=== PATIENT | male | born 1990 | race Two or more races ===

== ENCOUNTER 2018-12-01 14:56 | Inpatient (IN) | payer OTHER ==
[~2018-12-01] VITALS: Ht 175.3 cm; Wt 107.5 kg
--- NOTE | 2018-12-01 18:50 | NUR ---
Admitted from [facility] accompanied by ambulance staff per samy for Craniopharyngioma, s/p Resection of Neoplasm. Not in any form of distress. No complaints of pain. Alert x3. Oriented to unit and equipment. Informed Dr Godfrey of admission. Will endorse accordingly.
[2018-12-01] MEDS ORDERED: Z GUARD REMEDY PASTE 57 GM TUBE TOP PRN (19:15)
[2018-12-01] MEDS ORDERED: MAGNESIUM HYDROXIDE 30 ML LIQUID UDC PO PRN (19:15)
[2018-12-01 19:18] VITALS: BP 103/65
[2018-12-01] MEDS ORDERED: NA P133E RC (20:38)
[2018-12-01] MEDS ORDERED: ASPI81TA44 PO (20:38)
[2018-12-01] MEDS ORDERED: ACET-2154 PO (20:38)
[2018-12-01] MEDS ORDERED: IBUP-1955 PO (20:38)
[2018-12-01] MEDS ORDERED: POLY17PO4 PO (20:38)
[2018-12-01] MEDS ORDERED: BISA10SU61 RC (20:38)
[2018-12-01] MEDS ORDERED: TRIM300C14 PO (20:38)
[2018-12-01] MEDS ORDERED: HEPA500034 SQ (20:38)
[2018-12-01] MEDS ORDERED: LACO100T2 PO (20:38)
[2018-12-01] MEDS ORDERED: ONDA4TAB10 PO (20:38)
[2018-12-01] MEDS ORDERED: RISP1TAB27 PO (20:38)
[2018-12-01] MEDS ORDERED: DOCU100C36 PO (20:38)
[2018-12-01] MEDS ORDERED: OLAN5TAB3 PO (20:38)
[2018-12-01] MEDS ORDERED: BISA-79 PO (20:38)
[2018-12-01] MEDS ORDERED: LEVO200T9 PO (20:38)
[2018-12-01] MEDS ORDERED: DESM0.2T23 PO (20:38)
[2018-12-01 21:00] VITALS: BP 99/61
--- NOTE | 2018-12-01 21:45 | NUR ---
Admitting the 28 y/o male from [facility] under the care of [facility]. Arrived in unit at 1845. Received patient in bed, AAO x 3. On room air. No acute distress or SOB noted. Verbally responsive and able to make needs known. Put Medications on the system and Contacted [facility] on-call for medication reconciliation. Gideon SUPERVISOR FRAME SAMPLE AND PATTERN verbalized of completing. VSS. Routine admission care done. Pictures taken and placed in chart. Belongings list completed. MRSA swab done by AM nurse, swab sent to lab. All safety measures and fall precautions maintained. Call light and all personal belongings within reach. Continue to monitor.
[2018-12-01] MEDS ORDERED: BISACODYL 10 MG SUPP.RECT RC PRN (22:45)
[2018-12-01] MEDS ORDERED: FLEET ENEMA 133 ML BOTTLE RC PRN (22:45)
[2018-12-01] MEDS ORDERED: BISACODYL 5 MG TABLET.DR PO PRN (22:45)
[2018-12-01] MEDS ORDERED: IBUPROFEN 600 MG TABLET PO PRN (22:45)
[2018-12-01] MEDS ORDERED: MIRALAX 17 GM POWD.PACK PO PRN (22:45)
[2018-12-01] MEDS ORDERED: ACETAMINOPHEN 325 MG TABLET PO PRN (22:45)
[2018-12-01] MEDS ORDERED: ONDANSETRON HCL 4 MG TABLET PO PRN (22:45)
[2018-12-01] MEDS ORDERED: OLANZAPINE 5 MG TABLET PO PRN (22:45)
[2018-12-02 06:26] VITALS: BP 101/72
[2018-12-02 07:15] VITALS: BP 107/64
[2018-12-02] MEDS ORDERED: OLANZAPINE ZYDIS 5 MG TAB.RAPDIS PO PRN (07:45)
[2018-12-02] MEDS: LEVOTHYROXINE SODIUM 200 MCG TABLET PO SCH (08:33)
[2018-12-02] MEDS: DOCUSATE SODIUM 100 MG CAPSULE PO SCH ×2 (08:33→16:31)
[2018-12-02] MEDS: ASPIRIN EC 81 MG TABLET.DR PO SCH (08:33)
[2018-12-02] MEDS ORDERED: DESMOPRESSIN ACETATE 0.1 MG PO SCH (09:00)
[2018-12-02] MEDS ORDERED: Medication Not On Formulary EA (Lacosamide (Vimpat) 100 MG) PO SCH (09:00)
[2018-12-02] MEDS ORDERED: DESM0.1T4 PO (09:32)
[2018-12-02] MEDS: DESMOPRESSIN 0.1 MG TABLET PO SCH ×2 (12:13→20:18)
[2018-12-02] MEDS: LACOSAMIDE 50 MG TABLET PO SCH ×2 (12:14→20:18)
[2018-12-02 16:09] VITALS: BP 108/76
[2018-12-02] MEDS: risperiDONE 1 MG TABLET PO SCH (20:18)
[2018-12-02 21:09] VITALS: BP 114/78
--- NOTE | 2018-12-02 21:15 | NUR ---
Received pt resting in bed. AAO x3. Family at bedside. No acute distress noted. C/o headache, Motrin given. Assessed after 1 hour, pt stated that the pain is gone. Pt's heart rate is elevated from [address] Jackson regarding heart rate, ordered STAT EKG. Safety measures maintained. Call light and personal belongings within reach. Will continue to monitor.
--- NOTE | 2018-12-02 21:37 | NUR ---
Notified Dr. Jackson that result is out. aware and will put in order. Will continue to monitor.
[2018-12-03] VITALS (7 sets, daily range): BP systolic 104–137; BP diastolic 59–88
[2018-12-03] MEDS: LEVOTHYROXINE SODIUM 200 MCG TABLET PO SCH (06:31)
[2018-12-03 07:15] LABS: BASOPHILS # (AUTO) 0.1 K/uL (0.0-8.0); BASOPHILS % (AUTO) 0.8 % (0.0-2.0); EOSINOPHILS # (AUTO) 0.3 K/uL (0.0-0.7); EOSINOPHILS % (AUTO) 3.2 % (0.0-7.0); HEMOGLOBIN 14.2 g/dL (12.5-16.3); LYMPHOCYTES # (AUTO) 3.4 K/uL (20.0-40.0); LYMPHOCYTES % (AUTO) 34.5 % (20.5-51.5); MEAN CORPUSCULAR HEMOGLOBIN 30.9 uug (23.8-33.4); MEAN CORPUSCULAR HGB CONC 34 g/dL (32.5-36.3); MONOCYTES # (AUTO) 0.8 K/uL (2.0-10.0); MONOCYTES % (AUTO) 7.5 % (0.0-11.0); NEUTROPHILS # (AUTO) 5.4 K/uL (1.8-8.9); PLATELET COUNT (AUTO) 349 K/uL (152-348); RED BLOOD CELL COUNT(AUTO) 4.62 MIL/uL (4.06-5.63)
[2018-12-03 07:55] LABS: ALANINE AMINOTRANSFERASE 135 U/L (16-63); ALKALINE PHOSPHATASE 140 U/L (50-136); ASPARTATE AMINOTRANSFERASE 96 U/L (15-37); BILIRUBIN,TOTAL 0.3 mg/dL (0.2-1.0); CARBON DIOXIDE 25 mmol/L (21-32); CHLORIDE 118 mmol/L (98-107); CHOLESTEROL 238 mg/dL (<200); CREATININE 1.4 mg/dL (0.6-1.3); GLUCOSE 111 mg/dL (74-106); HDL CHOLESTEROL 37 mg/dL (40-60); MAGNESIUM 2.6 mg/dL (1.8-2.4); PHOSPHOROUS 4.8 mg/dL (2.5-4.9); POTASSIUM 4.2 mmol/L (3.5-5.1); TOTAL PROTEIN, SERUM 9.3 g/dL (6.4-8.2); TRIGLYCERIDES 766 MG/DL (30-150); UREA NITROGEN, BLOOD 21 mg/dL (7-18)
--- NOTE | 2018-12-03 08:12 | NUR ---
SPOKE WITH REGARDING NA OF 158. NO NEW ORDERS GIVEN
[2018-12-03] MEDS: DESMOPRESSIN 0.1 MG TABLET PO SCH ×2 (08:36→20:08)
[2018-12-03] MEDS: DOCUSATE SODIUM 100 MG CAPSULE PO SCH ×2 (08:37→18:22)
[2018-12-03] MEDS: LACOSAMIDE 50 MG TABLET PO SCH ×2 (08:38→20:08)
[2018-12-03] MEDS: ASPIRIN EC 81 MG TABLET.DR PO SCH (08:38)
[2018-12-03 08:44] LABS: THYROID STIMULATING HORMONE < 0.007 mIU/mL (0.358-3.740)
[2018-12-03] MEDS ORDERED: IV NS 1000 ML 1,000 ML IV PRN (09:45)
--- NOTE | 2018-12-03 11:34 | NUR ---
DIET CHANGED TO LOW SODIUM PER MD ORDER. D/T ELEVATED Na. IN BED RESTING QUIETLY. HR 145. SHOWER GIVEN BY OT JD WELL. DRSG TO ABDOMEN CHANGED INCISION SITE INTACT WITH STERISTRIPS
--- NOTE | 2018-12-03 16:13 | NUR ---
CALLED MD AGAIN REGARDING HEART RATE 140-150. FOR MOST OF DAY IN BED RESTING NOW CAR RIDER TOOK VS STATES HIS SAT WAS 82% ON ROOM AIR. HE HAS BEEN SATING FINE MOST OF DAY. APPLIED 2L O2 NOW SATING 99-100% HEART RATE TACHY AT 140. LEFT MSG WITH EXCHANGE FOR MD TO CALL ME BACK FOR ORDERS OR TO COME IN TO SEE HIM. IN NO ACUTE DISTRESS AT THIS TIME NO SOB, OR LIGHTHEADEDNESS OR DIZZINESS SKIN DRY NO DIAPHORESIS NOTED
[2018-12-03] MEDS: IV 1/2NS 1000 ML 1,000 ML IV PRN (18:29)
--- NOTE | 2018-12-03 18:33 | NUR ---
IV STARTED TO RIGHT HAND #22G X1 STICK. JD WELL . IV FL 1/2 NS @ 125CC/HR.X 1 BAG. ORDERED FOR DEHYDRATION. CBC TO BE DRAWN AFTER BAG IS INFUSED
--- NOTE | 2018-12-03 19:22 | NUR ---
IV FLUIDS INFUSING AT 80ML/HR
[2018-12-03] MEDS: risperiDONE 1 MG TABLET PO SCH (20:08)
--- NOTE | 2018-12-03 20:50 | NUR ---
Pt sleeping in bed. Aroused easily to name. AAO x3-4. Family at bedside. No acute distress noted. 98% on room air. Denies pain or discomfort. Assisted to the bathroom x2. Heart rate continues to be elevated. Dr. Jackson aware and seen pt. IV site on right hand gauge 22, 1/2 NS infusing at 80 mL/hr. All due meds given as ordered. Safety measures maintained. Call light and personal belongings within reach. Will continue to monitor.
[2018-12-04 05:55] VITALS: BP 118/70
[2018-12-04] MEDS: IV 1/2NS 1000 ML 1,000 ML IV PRN (06:16)
[2018-12-04] MEDS ORDERED: LEVOTHYROXINE SODIUM 150 MCG TABLET PO SCH (07:00)
[2018-12-04 07:24] LABS: BASOPHILS # (AUTO) 0.1 K/uL (0.0-8.0); BASOPHILS % (AUTO) 0.5 % (0.0-2.0); EOSINOPHILS # (AUTO) 0.5 K/uL (0.0-0.7); EOSINOPHILS % (AUTO) 4.3 % (0.0-7.0); HEMATOCRIT 41.5 % (36.7-47.1); HEMOGLOBIN 13.6 g/dL (12.5-16.3); LYMPHOCYTES # (AUTO) 4.1 K/uL (20.0-40.0); MEAN CORPUSCULAR HEMOGLOBIN 29.9 uug (23.8-33.4); MEAN CORPUSCULAR HGB CONC 33 g/dL (32.5-36.3); MEAN CORPUSCULAR VOLUME 91.2 fL (73.0-96.2); MONOCYTES % (AUTO) 9.2 % (0.0-11.0); NEUTROPHILS # (AUTO) 5.4 K/uL (1.8-8.9); PLATELET COUNT (AUTO) 332 K/uL (152-348); RED BLOOD CELL COUNT(AUTO) 4.55 MIL/uL (4.06-5.63); WHITE BLOOD COUNT (AUTO) 11.1 K/uL (3.6-10.2)
[2018-12-04 07:38] LABS: ALANINE AMINOTRANSFERASE 181 U/L (16-63); ALKALINE PHOSPHATASE 147 U/L (50-136); ASPARTATE AMINOTRANSFERASE 74 U/L (15-37); BILIRUBIN,TOTAL 0.4 mg/dL (0.2-1.0); CARBON DIOXIDE 15 mmol/L (21-32); CHLORIDE 124 mmol/L (98-107); CREATININE 1.3 mg/dL (0.6-1.3); GLUCOSE 124 mg/dL (74-106); MAGNESIUM 2.4 mg/dL (1.8-2.4); PHOSPHOROUS 4.2 mg/dL (2.5-4.9); POTASSIUM 3.7 mmol/L (3.5-5.1); TOTAL PROTEIN, SERUM 8.8 g/dL (6.4-8.2); UREA NITROGEN, BLOOD 28 mg/dL (7-18)
--- NOTE | 2018-12-04 08:00 | NUR ---
Received patient, resting in bed, awakex3. With some lethargy but responds well to commands and wakes up with voice. Not in any form of distress. No pain noted. With some dysarthria/ delayed response noted. No chest pains or headache noted.
[2018-12-04] MEDS: ASPIRIN EC 81 MG TABLET.DR PO SCH (08:23)
[2018-12-04] MEDS: DOCUSATE SODIUM 100 MG CAPSULE PO SCH (08:23)
[2018-12-04] MEDS: LACOSAMIDE 50 MG TABLET PO SCH (08:23)
[2018-12-04] MEDS: DESMOPRESSIN 0.1 MG TABLET PO SCH (08:23)
[2018-12-04 08:25] VITALS: BP 110/75
[2018-12-04 08:49] LABS: THYROID STIMULATING HORMONE < 0.007 mIU/mL (0.358-3.740)
--- NOTE | 2018-12-04 08:50 | NUR ---
Critical Na level of 162. HR of 137. No other S/S present. Dr Jackson informed and ordered D5W at 70 cc/hr and transfer to Telemetry for Tachycardia and hypernatremia.
[2018-12-04] MEDS ORDERED: IV D5W 1000ML 1,000 ML IV PRN (09:30)
--- NOTE | 2018-12-04 09:45 | NUR ---
Dr Godfrey informed of transfer. Informed family of transfer.
--- NOTE | 2018-12-04 11:55 | NUR ---
Report given to Norlina/ RN. Patient stable, no complaints of chest pains or SOB. No head ache noted. Transferred to [facility], telemetry per wheelchair.
[2018-12-04] MEDS ORDERED: ASPI-605 PO (13:25)
[2018-12-04] MEDS ORDERED: DESM0.2T23 PO (13:28)
[2018-12-04] MEDS ORDERED: LEVO150T PO (13:31)
[2018-12-04] MEDS ORDERED: Z-GUARD TOP (13:36)
[2018-12-04] MEDS ORDERED: MAGN400O6 PO (13:39)
--- NOTE | 2018-12-04 15:29 | NUR ---
Individualized Overall Plan of Care
== END 2018-12-04 11:55 | disposition short-term general hospital (02) | DRG 862 ==
LOC: TELE-TD3 12-06 11:55
PROVIDERS: ADMIT Physical Medicine & Rehabilitation Pain Medicine; ATTEND Physical Medicine & Rehabilitation Pain Medicine
DX: Z48.3 Aftercare following surgery for neoplasm (principal); E23.2 Diabetes insipidus; E23.0 Hypopituitarism; R00.0 Tachycardia, unspecified; G40.909 Epilepsy, unspecified, not intractable, without status epilepticus; Z98.2 Presence of cerebrospinal fluid drainage device; R53.1 Weakness; Z88.8 Allergy status to other drugs, medicaments and biological substances; E66.9 Obesity, unspecified; Z68.35 Body mass index [BMI] 35.0-35.9, adult
CPT/HCPCS: 36415; 70030-TC; 71045; 83735; 84100; 84443; 85025; 85610; 93005; 97110; 97112; 97116; 97165; 97530; 97535; A4663; G0378; J3490; J7070

== ENCOUNTER 2018-12-04 11:51 | Inpatient (IN) | payer OTHER ==
[~2018-12-04] VITALS: Ht 175.3 cm; Wt 94.3 kg
[~2018-12-04 11:51] MED LIST: ACET-2154 PO; ASPI81TA44 PO; BISA-79 PO; BISA10SU61 RC; DESM0.1T4 PO; DOCU100C36 PO; HEPA500034 SQ; IBUP-1955 PO; LACO100T2 PO; LEVO200T9 PO; NA P133E RC; OLAN5TAB3 PO; ONDA4TAB10 PO; POLY17PO4 PO; RISP1TAB27 PO; TRIM300C14 PO
[2018-12-04 12:02] VITALS: BP 115/79
[2018-12-04] MEDS ORDERED: ASPI-605 PO (13:25)
[2018-12-04] MEDS ORDERED: DESM0.2T23 PO (13:28)
[2018-12-04] MEDS ORDERED: LEVO150T PO (13:31)
[2018-12-04] MEDS ORDERED: Z-GUARD TOP (13:36)
[2018-12-04] MEDS ORDERED: MAGN400O6 PO (13:39)
[2018-12-04] MEDS ORDERED: FLEET ENEMA 133 ML BOTTLE RC PRN (15:45)
[2018-12-04] MEDS ORDERED: MIRALAX 17 GM POWD.PACK PO PRN (15:45)
[2018-12-04] MEDS ORDERED: OLANZAPINE 5 MG TABLET PO SCH (15:45)
[2018-12-04] MEDS ORDERED: BISACODYL 10 MG SUPP.RECT RC PRN (15:45)
[2018-12-04] MEDS ORDERED: BISACODYL 5 MG TABLET.DR PO PRN (15:45)
[2018-12-04] MEDS ORDERED: ACETAMINOPHEN 325 MG TABLET PO PRN (15:45)
[2018-12-04 15:52] VITALS: BP 108/71
[2018-12-04] MEDS ORDERED: ONDANSETRON 4 MG/2 ML VIAL IV PRN (16:00)
[2018-12-04] MEDS ORDERED: MORPHINE SULFATE 2 MG/1 ML DISP.SYRIN IV PRN (16:00)
[2018-12-04] MEDS ORDERED: Medication Not On Formulary EA (Lacosamide (Vimpat) 100 MG) PO SCH (17:00)
[2018-12-04] MEDS: METOPROLOL TARTRATE 25 MG TABLET PO SCH ×2 (17:10→20:18)
[2018-12-04] MEDS: DOCUSATE SODIUM 100 MG CAPSULE PO SCH (17:10)
[2018-12-04] MEDS: LACOSAMIDE 50 MG TABLET PO SCH (17:10)
[2018-12-04] MEDS: IV 1/2NS 1000 ML 1,000 ML IV PRN (19:41)
[2018-12-04] MEDS ORDERED: DESMOPRESSIN ACETATE 0.2 MG PO SCH (20:00)
[2018-12-04 20:17] VITALS: BP 128/74
[2018-12-04] MEDS: MAGNESIUM HYDROXIDE 30 ML LIQUID UDC PO SCH (20:17)
[2018-12-04] MEDS: risperiDONE 1 MG TABLET PO SCH (20:18)
[2018-12-04] MEDS: DESMOPRESSIN 0.1 MG TABLET PO SCH (20:19)
[2018-12-04] MEDS ORDERED: ATORVASTATIN 10 MG TABLET PO SCH (21:00)
[2018-12-04 23:50] VITALS: BP 96/66
[2018-12-05] MEDS: IV 1/2NS 1000 ML 1,000 ML IV PRN ×3 (04:25→21:54)
[2018-12-05 04:57] VITALS: BP 111/71
[2018-12-05 07:32] LABS: BASOPHILS # (AUTO) 0.1 K/uL (0.0-8.0); BASOPHILS % (AUTO) 0.7 % (0.0-2.0); EOSINOPHILS # (AUTO) 0.7 K/uL (0.0-0.7); EOSINOPHILS % (AUTO) 8.2 % (0.0-7.0); HEMATOCRIT 41.7 % (36.7-47.1); HEMOGLOBIN 13.4 g/dL (12.5-16.3); LYMPHOCYTES # (AUTO) 3.1 K/uL (20.0-40.0); LYMPHOCYTES % (AUTO) 37.9 % (20.5-51.5); MEAN CORPUSCULAR HEMOGLOBIN 29.6 uug (23.8-33.4); MEAN CORPUSCULAR HGB CONC 32 g/dL (32.5-36.3); MEAN CORPUSCULAR VOLUME 91.7 fL (73.0-96.2); MONOCYTES # (AUTO) 0.5 K/uL (2.0-10.0); MONOCYTES % (AUTO) 5.6 % (0.0-11.0); NEUTROPHILS # (AUTO) 3.9 K/uL (1.8-8.9); NEUTROPHILS % (AUTO) 47.6 % (38.5-71.5); PLATELET COUNT (AUTO) 275 K/uL (152-348); RED BLOOD CELL COUNT(AUTO) 4.55 MIL/uL (4.06-5.63); WHITE BLOOD COUNT (AUTO) 8.3 K/uL (3.6-10.2)
[2018-12-05 07:51] LABS: THYROID STIMULATING HORMONE < 0.007 mIU/mL (0.358-3.740)
[2018-12-05 07:53] LABS: ALANINE AMINOTRANSFERASE 155 U/L (16-63); ALKALINE PHOSPHATASE 137 U/L (50-136); ASPARTATE AMINOTRANSFERASE 74 U/L (15-37); BILIRUBIN,TOTAL 0.5 mg/dL (0.2-1.0); CARBON DIOXIDE 22 mmol/L (21-32); CHLORIDE 119 mmol/L (98-107); CREATININE 1.1 mg/dL (0.6-1.3); GLUCOSE 111 mg/dL (74-106); MAGNESIUM 2.3 mg/dL (1.8-2.4); PHOSPHOROUS 4.8 mg/dL (2.5-4.9); POTASSIUM 3.8 mmol/L (3.5-5.1); TOTAL PROTEIN, SERUM 8.7 g/dL (6.4-8.2); UREA NITROGEN, BLOOD 21 mg/dL (7-18); URIC ACID 11.1 mg/dL (3.5-7.2)
[2018-12-05 08:59] LABS: *BILIRUBIN,URIN NEGATIVE (NEGATIVE); *BLOOD, URINE NEGATIVE (NEGATIVE); *CLARITY,URINE CLEAR (CLEAR); *COLOR,URINE YELLOW (YELLOW); *KETONES,URINE NEGATIVE (NEGATIVE); *UROBILINOGEN,URINE 0.2 E.U./dl (NORMAL); LEUKOCYTE ESTERASE ,URINE NEGATIVE (NEGATIVE); NITRITE, URINE NEGATIVE (NEGATIVE); PH,URINE 5.5 (5.0-8.0); UGLUCOSE NEGATIVE (NEGATIVE); WBC,URINE 0-3 /HPF (0-3)
[2018-12-05 09:05] LABS: *CREATININE,URINE 209.9 mg/dL (30-125)
[2018-12-05] MEDS: DOCUSATE SODIUM 100 MG CAPSULE PO SCH ×2 (09:37→17:31)
[2018-12-05] MEDS: ASPIRIN EC 81 MG TABLET.DR PO SCH (09:37)
[2018-12-05] MEDS: METOPROLOL TARTRATE 25 MG TABLET PO SCH ×2 (09:38→20:25)
[2018-12-05] MEDS: LACOSAMIDE 50 MG TABLET PO SCH ×2 (09:39→17:28)
[2018-12-05] MEDS: DESMOPRESSIN 0.1 MG TABLET PO SCH ×2 (09:46→20:23)
[2018-12-05 12:02] VITALS: BP 112/70
[2018-12-05 16:00] VITALS: BP 106/70
[2018-12-05 17:21] LABS: CREATININE 1.1 mg/dL (0.6-1.3); POTASSIUM 3.9 mmol/L (3.5-5.1)
[2018-12-05 19:30] VITALS: BP 109/76
[2018-12-05] MEDS: MAGNESIUM HYDROXIDE 30 ML LIQUID UDC PO SCH (20:20)
[2018-12-05] MEDS: risperiDONE 1 MG TABLET PO SCH (20:21)
[2018-12-05 23:18] VITALS: BP 98/56
[2018-12-06 03:37] VITALS: BP 122/74
[2018-12-06 06:39] LABS: BASOPHILS % (AUTO) 0.7 % (0.0-2.0); EOSINOPHILS # (AUTO) 0.6 K/uL (0.0-0.7); EOSINOPHILS % (AUTO) 10.2 % (0.0-7.0); HEMATOCRIT 34.5 % (36.7-47.1); HEMOGLOBIN 11.3 g/dL (12.5-16.3); LYMPHOCYTES # (AUTO) 2.3 K/uL (20.0-40.0); LYMPHOCYTES % (AUTO) 38.5 % (20.5-51.5); MEAN CORPUSCULAR HEMOGLOBIN 29.6 uug (23.8-33.4); MEAN CORPUSCULAR HGB CONC 33 g/dL (32.5-36.3); MEAN CORPUSCULAR VOLUME 90.5 fL (73.0-96.2); MONOCYTES # (AUTO) 0.4 K/uL (2.0-10.0); MONOCYTES % (AUTO) 6.6 % (0.0-11.0); NEUTROPHILS # (AUTO) 2.7 K/uL (1.8-8.9); PLATELET COUNT (AUTO) 208 K/uL (152-348); RED BLOOD CELL COUNT(AUTO) 3.81 MIL/uL (4.06-5.63); WHITE BLOOD COUNT (AUTO) 6.1 K/uL (3.6-10.2)
[2018-12-06 06:55] LABS: BILIRUBIN,TOTAL 0.9 mg/dL (0.2-1.0); CREATININE 0.9 mg/dL (0.6-1.3); MAGNESIUM 2.1 mg/dL (1.8-2.4); PHOSPHOROUS 5.5 mg/dL (2.5-4.9); POTASSIUM 3.5 mmol/L (3.5-5.1); TOTAL PROTEIN, SERUM 7.1 g/dL (6.4-8.2)
[2018-12-06] MEDS: DESMOPRESSIN 0.1 MG TABLET PO SCH ×2 (08:19→20:10)
[2018-12-06] MEDS: IV 1/2NS 1000 ML 1,000 ML IV PRN (08:43)
[2018-12-06] MEDS: LACOSAMIDE 50 MG TABLET PO SCH ×2 (08:44→17:20)
[2018-12-06] MEDS: METOPROLOL TARTRATE 25 MG TABLET PO SCH ×2 (08:46→20:09)
[2018-12-06] MEDS: DOCUSATE SODIUM 100 MG CAPSULE PO SCH ×2 (08:46→17:20)
[2018-12-06] MEDS: ASPIRIN EC 81 MG TABLET.DR PO SCH (08:46)
[2018-12-06 11:42] VITALS: BP 106/85
[2018-12-06 15:58] VITALS: BP 104/77
[2018-12-06 17:13] LABS: CREATININE 0.9 mg/dL (0.6-1.3); POTASSIUM 3.5 mmol/L (3.5-5.1)
[2018-12-06 19:33] VITALS: BP 112/62
[2018-12-06] MEDS: risperiDONE 1 MG TABLET PO SCH (20:09)
[2018-12-06] MEDS: MAGNESIUM HYDROXIDE 30 ML LIQUID UDC PO SCH (20:10)
[2018-12-06 23:50] VITALS: BP 95/51
[2018-12-07 03:49] VITALS: BP 106/54
[2018-12-07 06:42] LABS: EOSINOPHILS # (AUTO) 0.3 K/uL (0.0-0.7); EOSINOPHILS % (AUTO) 9.6 % (0.0-7.0); HEMATOCRIT 30.4 % (36.7-47.1); HEMOGLOBIN 10.3 g/dL (12.5-16.3); LYMPHOCYTES # (AUTO) 1.5 K/uL (20.0-40.0); LYMPHOCYTES % (AUTO) 43.1 % (20.5-51.5); MEAN CORPUSCULAR HEMOGLOBIN 30.3 uug (23.8-33.4); MEAN CORPUSCULAR HGB CONC 34 g/dL (32.5-36.3); MEAN CORPUSCULAR VOLUME 89.1 fL (73.0-96.2); MONOCYTES # (AUTO) 0.3 K/uL (2.0-10.0); MONOCYTES % (AUTO) 7.2 % (0.0-11.0); NEUTROPHILS # (AUTO) 1.4 K/uL (1.8-8.9); NEUTROPHILS % (AUTO) 39.1 % (38.5-71.5); PLATELET COUNT (AUTO) 177 K/uL (152-348); RED BLOOD CELL COUNT(AUTO) 3.41 MIL/uL (4.06-5.63); WHITE BLOOD COUNT (AUTO) 3.5 K/uL (3.6-10.2)
[2018-12-07 06:45] LABS: CREATININE 0.8 mg/dL (0.6-1.3); POTASSIUM 3.4 mmol/L (3.5-5.1)
[2018-12-07] MEDS ORDERED: LEVOTHYROXINE SODIUM 150 MCG TABLET PO SCH (07:00)
[2018-12-07] MEDS: LACOSAMIDE 50 MG TABLET PO SCH (08:50)
[2018-12-07] MEDS: ASPIRIN EC 81 MG TABLET.DR PO SCH (08:50)
[2018-12-07] MEDS: DOCUSATE SODIUM 100 MG CAPSULE PO SCH (08:50)
[2018-12-07] MEDS: DESMOPRESSIN 0.1 MG TABLET PO SCH (08:50)
[2018-12-07] MEDS: METOPROLOL TARTRATE 25 MG TABLET PO SCH (08:51)
[2018-12-07] MEDS: IV 1/2NS 1000 ML 1,000 ML IV PRN (10:59)
[2018-12-07 11:14] VITALS: BP 94/50
[2018-12-07] MEDS ORDERED: POTASSIUM CHLORIDE 20 MEQ TAB.PRT.SR PO ONE (11:30)
[2018-12-07] MEDS ORDERED: DESM0.1T4 PO (14:26)
[2018-12-07 15:06] VITALS: BP 98/50
[2018-12-08] MEDS ORDERED: DESMOPRESSIN 0.1 MG TABLET PO SCH (08:00)
== END 2018-12-07 16:30 | DRG 426 ==
LOC: MEDSURG3 11:51 → TELE3 12:03 → MEDSURG3 12-07 11:26
PROVIDERS: ADMIT Internal Medicine; ATTEND Internal Medicine
PROC: 05HY33Z Insertion of Infusion Device into Upper Vein, Percutaneous Approach (ICD-10-PCS; principal; 2018-12-06)
DX: E23.2 Diabetes insipidus (principal); N17.0 Acute kidney failure with tubular necrosis; G93.40 Encephalopathy, unspecified; E23.0 Hypopituitarism; E86.0 Dehydration; G40.909 Epilepsy, unspecified, not intractable, without status epilepticus; E78.5 Hyperlipidemia, unspecified; E66.9 Obesity, unspecified; Z98.2 Presence of cerebrospinal fluid drainage device; R00.0 Tachycardia, unspecified; I44.4 Left anterior fascicular block; Z74.09 Other reduced mobility; Z86.03 Personal history of neoplasm of uncertain behavior; R79.89 Other specified abnormal findings of blood chemistry; R94.6 Abnormal results of thyroid function studies
CPT/HCPCS: 36415; 70030-TC; 76705; 83735; 84100; 84156; 84300; 84443; 84550; 85025; 93005; 93307; 97110; 97112; 97116; 97165; 97530; A4663; G0378; J3490

== ENCOUNTER 2018-12-07 16:43 | Inpatient (IN) | payer OTHER ==
[~2018-12-07] VITALS: Ht 175.3 cm; Wt 94.3 kg
[~2018-12-07 16:43] MED LIST changes: +ASPI-605 PO; -ASPI81TA44 PO; +DESM0.2T23 PO; -HEPA500034 SQ; +LEVO150T PO; -LEVO200T9 PO; +MAGN400O6 PO; -TRIM300C14 PO; +Z-GUARD TOP
[2018-12-07 16:45] VITALS: BP 101/66
[2018-12-07] MEDS ORDERED: Z GUARD REMEDY PASTE 57 GM TUBE TOP PRN (17:00)
--- NOTE | 2018-12-07 18:25 | NUR ---
Patient arrived from med-surg unit of [facility] via wheelchair and escort from [place]/[facility]AMUD. No complaints of pain at this time, no signs of distress, patient appears lethargic with slurred speech (this is baseline for this patient). Vitals: 101/66, 90 HR, 99% on room air, 18 respirations, 97.2 oral temperature, IV noted to right wrist, no skin issues noted at this time, can follow commands, is alert to self and place, will endorse to supervisor hot dip tinning nurse
[2018-12-07 20:15] VITALS: BP 113/77
[2018-12-08 04:57] VITALS: BP 116/83
[2018-12-08 08:00] VITALS: BP 144/98
[2018-12-08] MEDS ORDERED: MIRALAX 17 GM POWD.PACK PO PRN (09:15)
[2018-12-08] MEDS ORDERED: OLANZAPINE 5 MG TABLET PO SCH (09:15)
[2018-12-08] MEDS ORDERED: BISACODYL 5 MG TABLET.DR PO PRN (09:15)
[2018-12-08] MEDS ORDERED: IBUPROFEN 600 MG TABLET PO PRN ×2 (09:15→11:00)
[2018-12-08] MEDS ORDERED: FLEET ENEMA 133 ML BOTTLE RC PRN (09:15)
[2018-12-08] MEDS ORDERED: BISACODYL 10 MG SUPP.RECT RC PRN (09:15)
[2018-12-08] MEDS ORDERED: ONDANSETRON HCL 4 MG TABLET PO PRN (09:15)
[2018-12-08 10:30] VITALS: BP 105/82
[2018-12-08] MEDS ORDERED: IV 1/2NS 1000 ML 1,000 ML IV ONE ×2 (10:37→14:00)
[2018-12-08 10:45] LABS: POTASSIUM 3.9 mmol/L (3.5-5.1)
[2018-12-08] MEDS: ASPIRIN EC 81 MG TABLET.DR PO SCH (10:53)
[2018-12-08] MEDS: DESMOPRESSIN 0.1 MG TABLET PO SCH ×3 (10:53→12:01)
[2018-12-08] MEDS ORDERED: OLANZAPINE ZYDIS 5 MG TAB.RAPDIS SL PRN (11:00)
[2018-12-08] MEDS ORDERED: IV 1/2NS 1000 ML 1,000 ML IV PRN (11:45)
[2018-12-08] MEDS ORDERED: DESMOPRESSIN 4 MCG/1 ML VIAL SUBCUT ONE (11:45)
--- NOTE | 2018-12-08 11:51 | NUR ---
Patient critical value of sodium 172, chloride 133 relayed to NEW CAR GET READY MECHANIC Garcia. ordered monitorin intake and output. measure urine in urinal, Ordered IV 0.45% 1k liter now for bolus. possible order continue IV NACL refuse desmopressin 4mcg PO. NEW CAR GET READY MECHANIC ordered subcutaneous desmopressin 4mcg. no complaint of pain/discomfort. NEW CAR GET READY MECHANIC aware of tachycardia. latest 116. will continue monitor
[2018-12-08] MEDS: LACOSAMIDE 50 MG TABLET PO SCH ×2 (12:01→20:37)
--- NOTE | 2018-12-08 12:46 | NUR ---
INTERDISCIPLINARY TEAM CONFERENCE
--- NOTE | 2018-12-08 13:57 | NUR ---
Rn Lactation Consultant assessment completed. See intervention Rn Lactation Consultant Assessment for details.
[2018-12-08 14:42] LABS: ABG HCO3 21.8 mmol/L; ABG PCO2 37.9 mmHg (35.0-45.0); ABG PH 7.377 (7.350-7.450); ABG PO2 79.7 mmHg (75.0-100.0); ABG SITE RIGHT RADIAL; ABG TOTAL HEMOGLOBIN 13.3 G/dL (13.5-18.0); COHb 1.2 % (0.5-1.5); MetHb 0.4 % (0.0-1.5); O2Hb 94.2 % (94.0-97.0); VENT MODE ROOM AIR
--- NOTE | 2018-12-08 15:02 | NUR ---
Continue IVF 0.45% NACL 125ml/hr. for hypernatremia. ABG ordered for increase respiration with normal result. GAS PUMPING STATION HELPER Garcia aware. Continue monitor
--- NOTE | 2018-12-08 15:15 | NUR ---
Patient observe to have high respiration while sleeping but not in distress. GAMING TABLE OPERATOR Garcia aware. will continue monitor
[2018-12-08 15:37] LABS: POTASSIUM 3.9 mmol/L (3.5-5.1)
[2018-12-08 16:00] VITALS: BP 130/94
--- NOTE | 2018-12-08 16:02 | NUR ---
Patient repeated BMP with critical lab value sodium 173, chloride 134 result. SCRUMMASTER Garcia notified. will continue monitor
[2018-12-08] MEDS: DOCUSATE SODIUM 100 MG CAPSULE PO SCH (16:39)
[2018-12-08] MEDS ORDERED: Medication Not On Formulary EA (Lacosamide (Vimpat) 100 MG) PO SCH (17:00)
--- NOTE | 2018-12-08 18:50 | NUR ---
Patient noted slight nosebleed. PIPE CLEANER aware.
[2018-12-08] MEDS: IV D5W 1000ML 1,000 ML IV SCH (19:01)
--- NOTE | 2018-12-08 19:09 | NUR ---
Patient vomited small amount of liquid brown color. no foul smell noted. ABALONE FISHERMAN Garcia aware.will continue monitor
[2018-12-08] MEDS ORDERED: DESMOPRESSIN 0.1 MG TABLET PO SCH (20:00)
--- NOTE | 2018-12-08 20:07 | NUR ---
Patient have less respiration compare in the afternoon. MD Escobar clarify order of D5W 1L 100ml/hr for hypernatremia. Mother requested transfer to [facility] due to high respiration. PRODUCTION GRIP Garcia aware, advice to stay in rehab for continue treatment. Mother agreed. will continue monitor
[2018-12-08 20:30] VITALS: BP 115/74
[2018-12-08] MEDS: DESMOPRESSIN 4 MCG/1 ML VIAL SUBCUT SCH (20:34)
[2018-12-08] MEDS: MAGNESIUM HYDROXIDE 30 ML LIQUID UDC PO SCH (20:37)
[2018-12-08] MEDS: risperiDONE 1 MG TABLET PO SCH (20:37)
[2018-12-08] MEDS: ACETAMINOPHEN 325 MG TABLET PO PRN (20:37)
[2018-12-08 20:57] VITALS: BP 115/74
[2018-12-08 22:10] LABS: CREATININE 1.2 mg/dL (0.6-1.3); POTASSIUM 3.4 mmol/L (3.5-5.1)
[2018-12-08] MEDS ORDERED: POTASSIUM CHLORIDE 10 MEQ TAB.PRT.SR PO ONE (22:45)
--- NOTE | 2018-12-08 22:47 | NUR ---
Received pt sleeping, aroused easily to stimuli. Pt's mother at bedside. AAO x2. No acute distress noted. C/o headache, Tylenol given and was relieved. All due meds given as ordered. Heart rate still elevated, hr 125. IV D5W infusing 100 mL/ hr. Lab called for critical report at 2210, sodium 167 and chloride 129. Potassium was also noted to have decreased from 3.9 to 3.4. Notified Garcia REGISTERED NURSE CARDIAC of results and heart rate. REGISTERED NURSE CARDIAC order KCl 20 mEq ONCE. Awaiting pharmacy to verify order. Safety measures maintained. Call light within reach. Bed alarm on. Will continue to monitor.
--- NOTE | 2018-12-08 23:34 | NUR ---
Called pharmacy to verify med. Pharmacy asked if it is okay to give KCl if chloride is elevated. Notified SHOE STAMPER Radha, awaiting response.
--- NOTE | 2018-12-09 00:34 | NUR ---
Dr. Jackson, on-call after midnight, notified if ok to give KCl. said it is okay since it is just ONCE. Med given as ordered. Will continue to monitor.
[2018-12-09] MEDS: IV D5W 1000ML 1,000 ML IV SCH ×2 (05:16→15:19)
[2018-12-09 06:03] VITALS: BP 108/66
[2018-12-09] MEDS: LEVOTHYROXINE SODIUM 150 MCG TABLET PO SCH (06:06)
--- NOTE | 2018-12-09 06:19 | NUR ---
Pt noted to have franklyn colored urine. Pt not voiding as much as intake. No bladder distention noted. Bladder scan 131 mL. IV D5W infusing at 100 mL/hr. Will continue to monitor.
[2018-12-09 06:43] LABS: BASOPHILS % (AUTO) 0.7 % (0.0-2.0); EOSINOPHILS # (AUTO) 0.6 K/uL (0.0-0.7); EOSINOPHILS % (AUTO) 8.5 % (0.0-7.0); HEMATOCRIT 36.8 % (36.7-47.1); LYMPHOCYTES # (AUTO) 2.6 K/uL (20.0-40.0); LYMPHOCYTES % (AUTO) 38.1 % (20.5-51.5); MEAN CORPUSCULAR HEMOGLOBIN 29.6 uug (23.8-33.4); MEAN CORPUSCULAR HGB CONC 33 g/dL (32.5-36.3); MEAN CORPUSCULAR VOLUME 90.8 fL (73.0-96.2); MONOCYTES # (AUTO) 0.7 K/uL (2.0-10.0); MONOCYTES % (AUTO) 9.6 % (0.0-11.0); NEUTROPHILS % (AUTO) 43.1 % (38.5-71.5); PLATELET COUNT (AUTO) 223 K/uL (152-348); RED BLOOD CELL COUNT(AUTO) 4.05 MIL/uL (4.06-5.63); WHITE BLOOD COUNT (AUTO) 6.9 K/uL (3.6-10.2)
[2018-12-09 06:50] LABS: CREATININE 1.3 mg/dL (0.6-1.3); POTASSIUM 3.1 mmol/L (3.5-5.1)
--- NOTE | 2018-12-09 07:05 | NUR ---
Lab called for critical lab Sodium of 165. Will notify . Continue to monitor.
[2018-12-09 08:06] VITALS: BP 126/80
[2018-12-09] MEDS: DOCUSATE SODIUM 100 MG CAPSULE PO SCH ×2 (09:00→17:00)
[2018-12-09] MEDS: LACOSAMIDE 50 MG TABLET PO SCH ×2 (09:00→20:22)
[2018-12-09] MEDS: ASPIRIN EC 81 MG TABLET.DR PO SCH (09:00)
[2018-12-09] MEDS: DESMOPRESSIN 4 MCG/1 ML VIAL SUBCUT SCH ×2 (10:48→20:22)
[2018-12-09] MEDS ORDERED: POTASSIUM CHLORIDE 20 MEQ TAB.PRT.SR PO ONE (12:00)
[2018-12-09 13:18] LABS: CREATININE 1.3 mg/dL (0.6-1.3); POTASSIUM 3.1 mmol/L (3.5-5.1)
[2018-12-09] MEDS: ACETAMINOPHEN 325 MG TABLET PO PRN (13:33)
--- NOTE | 2018-12-09 13:42 | NUR ---
IN BED SLEEPING . REFUSING MEDS AND THERAPY SO FAR. TRY TO GIVE MEDS HE SAYS NO C/O H/A STAYS HE WANTS TYLENOL BUT WHEN I BRING IT HE REFUSES TO TAKE IT. RESP 24- . NA NOW 158 TRENDING DOWN. IV DEXTROSE INFUSING ORDERED
[2018-12-09 17:04] VITALS: BP 118/75
--- NOTE | 2018-12-09 19:25 | NUR ---
SBAR RECEIVED FROM DAY SHIFT NURSE. ALERT AND ORIENTED X 1-2. PATIENT SLEEPING UPON ENTERING ROOM. EASILY AROUSIBLE TO VERBAL AND TACTILE STIMULI. PATIENT AGITATED UPON GREETING NURSE. TOLD THIS NURSE TO LEAVE PATIENT ROOM. ASSESSED PATIENT FOR PAIN AND SOB. NONE NOTED. SIDE RAILS UP BILATERALLY FOR SAFETY. CALL LIGHT AND FREQUENTLY USED ITEMS WITHIN REACH. WILL CONTINUE TO MONITOR.
--- NOTE | 2018-12-09 20:00 | NUR ---
PATIENT REFUSED EVENING BLOOD DRAW. PATIENT INFORMED OF RISKS. STILL REFUSED. WILL CONTINUE TO MONITOR.
[2018-12-09 20:04] VITALS: BP 108/70
[2018-12-09] MEDS: risperiDONE 1 MG TABLET PO SCH (20:22)
[2018-12-09] MEDS: MAGNESIUM HYDROXIDE 30 ML LIQUID UDC PO SCH (20:29)
[2018-12-10] MEDS: IV D5W 1000ML 1,000 ML IV SCH (01:14)
[2018-12-10] MEDS ORDERED: HALOPERIDOL LACTATE 5 MG/1 ML VIAL ONE (05:13)
[2018-12-10] MEDS ORDERED: HALOPERIDOL LACTATE 5 MG/1 ML VIAL IM PRN (05:15)
--- NOTE | 2018-12-10 05:20 | NUR ---
PATIENT FOUND IN ROOM AGITATED AND TRYING TO GET OUT OF BED. NURSE ENTERED ROOM AND TRIED TO CALM DOWN PATIENT. PATIENT BECAME EVEN MORE AGITATED STATING THAT HE WANTED TO GO OUTSIDE AND FIND HIS CAR. PATIENT'S SPEECH WAS SLURRED AND HE DID NOT BELIEVE THAT IT WAS EARLY IN THE MORNING. SECONDARY RN ENTERED ROOM AND TRIED TO DEESCALATE THE PATIENT WHO WAS GETTING MORE AND MORE AGITATED AND BEGAN TO GET OUT BED. RN'S CONTINUED TO TRY AND REASSURE HIM AND INFORM HIM OF THE EARLY HOUR, THAT THE NURSES WERE NOT AWARE OF WHERE HIS CAR WAS. MALE HOT STRIP MILL INSPECTOR ENTERED ROOM TO ASSISTED RNS, AND THE PATIENT BECAME MORE AGITATED. PATIENT BEGAN TO CRY STILL WANTING TO KNOW WHERE HIS CAR HAD GONE AND WHY HE COULDN'T LEAVE TO FIND OUT WHERE IT WAS. PATIENT PULLED OUT HIS IV AND BEGAN TO MAKE HIS WAY OUT THE DOOR OF HIS ROOM. A SALVATORE WHITING WAS CALLED THE HEALTH PROMOTION COORDINATOR AND SECURITY ENTERED THE SCENE. THIS RN CONTACTED THE MD WHILE THE HEALTH PROMOTION COORDINATOR AND OTHER RN'S CONTINUED TO TRY AND DEESCALATE THE PATIENT WHO WAS MAKING HIS WAY DOWN THE HALLWAY. DR. QUICK ORDERED HALDOL 5 MG IM Q6H PRN FOR AGITATION. PATIENT WAS EVENTUALLY CONVINCED TO GET BACK INTO HIS BED BY STAFF MEMBERS, AND HALDOL GIVEN. PATIENT IN BED NOW SLEEPING. THIS RN WILL REINSERT THE IV LINE. WILL CONTINUE TO MONITOR.
[2018-12-10 05:57] VITALS: BP 100/60
--- NOTE | 2018-12-10 06:15 | NUR ---
PATIENT REFUSED IV REINSERTION X3. ATTEMPTED TO INSERT AND PATIENT UNABLE TO SIT STILL LONG ENOUGH TO COMPLETE PROCEDURE. WILL INFORM MD. PATIENT STILL AGITATED, BUT LESS THAN BEFORE. SPEECH STILL SLURRED, AND AFFECT IS STILL LETHARGIC. WILL CONTINUE TO MONITOR.
[2018-12-10] MEDS: LEVOTHYROXINE SODIUM 150 MCG TABLET PO SCH (06:27)
--- NOTE | 2018-12-10 06:54 | NUR ---
DOCTOR ABDELRAHMAN INFORMED OF DEVELOPMENTS. WILL ENDORSE TO ONCOMING SHIFT ACCORDINGLY.
[2018-12-10 09:11] LABS: BASOPHILS # (AUTO) 0.1 K/uL (0.0-8.0); BASOPHILS % (AUTO) 0.9 % (0.0-2.0); BILIRUBIN,TOTAL 0.8 mg/dL (0.2-1.0); CREATININE 1.2 mg/dL (0.6-1.3); EOSINOPHILS # (AUTO) 0.8 K/uL (0.0-0.7); EOSINOPHILS % (AUTO) 9.8 % (0.0-7.0); HEMATOCRIT 33.7 % (36.7-47.1); LYMPHOCYTES # (AUTO) 2.7 K/uL (20.0-40.0); LYMPHOCYTES % (AUTO) 32.5 % (20.5-51.5); MAGNESIUM 1.9 mg/dL (1.8-2.4); MEAN CORPUSCULAR HEMOGLOBIN 29.8 uug (23.8-33.4); MEAN CORPUSCULAR HGB CONC 33 g/dL (32.5-36.3); MEAN CORPUSCULAR VOLUME 91.2 fL (73.0-96.2); MONOCYTES # (AUTO) 0.5 K/uL (2.0-10.0); MONOCYTES % (AUTO) 6.4 % (0.0-11.0); NEUTROPHILS # (AUTO) 4.2 K/uL (1.8-8.9); NEUTROPHILS % (AUTO) 50.4 % (38.5-71.5); PHOSPHOROUS 4.7 mg/dL (2.5-4.9); PLATELET COUNT (AUTO) 212 K/uL (152-348); POTASSIUM 3.6 mmol/L (3.5-5.1); RED BLOOD CELL COUNT(AUTO) 3.69 MIL/uL (4.06-5.63); TOTAL PROTEIN, SERUM 6.8 g/dL (6.4-8.2); WHITE BLOOD COUNT (AUTO) 8.4 K/uL (3.6-10.2)
--- NOTE | 2018-12-10 09:53 | NUR ---
IN BED ASLEEP. AROUSABLE BUT NOT WANTING TO DO MUCH JUST GOES BACK TO SLEEP AFTER THE INTERACTION . NOT PARTICIPATING IN THERAPY AT THIS TIME. REFUSES WHEN THE THERAPIST COME TO HIS ROOM. SATS NORMALLY 98% NOW 94% O2 1L PROVIDED SATING 98-99% ON 1L. HEART RATE 109 THIS AM.
--- NOTE | 2018-12-10 10:05 | NUR ---
NOW AWAKE SITTING AT THE EDGE OF THE BED . EATING BREAKFAST. NO C/O DISTRESS NOTED. A/O ABLE TO ANSWER QUESTIONS
[2018-12-10] MEDS: DESMOPRESSIN 4 MCG/1 ML VIAL SUBCUT SCH ×2 (10:11→20:49)
[2018-12-10] MEDS: ASPIRIN EC 81 MG TABLET.DR PO SCH (10:12)
[2018-12-10] MEDS: DOCUSATE SODIUM 100 MG CAPSULE PO SCH ×2 (10:12→17:00)
[2018-12-10] MEDS: LACOSAMIDE 50 MG TABLET PO SCH ×2 (10:13→20:55)
[2018-12-10 14:18] LABS: CREATININE 1.2 mg/dL (0.6-1.3); POTASSIUM 3.5 mmol/L (3.5-5.1)
--- NOTE | 2018-12-10 14:42 | NUR ---
INDIVIDUALIZED OVERALL PLAN OF CARE
[2018-12-10 15:10] VITALS: BP 118/59
[2018-12-10] MEDS ORDERED: IV D5W 1000ML 1,000 ML IV PRN (15:34)
--- NOTE | 2018-12-10 19:47 | NUR ---
SBAR RECEIVED FROM DAY SHIFT NURSE. PATIENT ALERT AND ORIENTED X 2-3. DAY SHIFT NURSE ATTEMPTING IV ACCESS WHEN ENTERING PATIENT ROOM. PATIENT AGITATED, BUT ALLOWING SAY SHIFT NURSE TO TRY AND PLACE IV. DAY SHIFT NURSE UNABLE TO PLACE IV, WILL TRY AND PLACE LATER IN SHIFT. NO SOB, PAIN OR DISTRESS NOTED UPON ASSESSMENT. SIDE RAILS UP BILATERALLY FOR SAFETY. CALL LIGHT AND FREQUENTLY USED ITEMS WITHIN REACH. WILL CONTINUE TO MONITOR.
[2018-12-10 20:18] LABS: CREATININE 1.2 mg/dL (0.6-1.3); POTASSIUM 3.5 mmol/L (3.5-5.1)
[2018-12-10 20:24] VITALS: BP 101/58
[2018-12-10] MEDS: MAGNESIUM HYDROXIDE 30 ML LIQUID UDC PO SCH (20:54)
[2018-12-10] MEDS: risperiDONE 1 MG TABLET PO SCH (20:54)
--- NOTE | 2018-12-10 21:00 | NUR ---
PATIENT REFUSE ALL PO MEDIATIONS FOR 2100 DUE TO THE FACT THAT HE WOULD HAVE TO SIT UP. WILL CONTINUE TO MONITOR.
--- NOTE | 2018-12-10 22:14 | NUR ---
SPOKE WITH CHARGEBACK SPECIALIST MD CUADRA REGARDING INABILITY TO GET IV STICK FOR D5W FLUID ORDER. ORDER TO HOLD FLUIDS. MD WILL FOLLOW UP TOMORROW. WILL CONTINUE TO MONITOR.
[2018-12-11] MEDS: LEVOTHYROXINE SODIUM 150 MCG TABLET PO SCH (06:25)
[2018-12-11 06:27] VITALS: BP 105/69
--- NOTE | 2018-12-11 06:42 | NUR ---
PATIENT SLEPT MOST OF THE NIGHT. REFUSED MORNING MEDICATIONS.ASSISTED TO THE BATHROOM X2. SIDE RAILS UP BILATERALLY. CALL LIGHT AND FREQUENTLY USED ITEMS WITHIN REACH. WILL CONTINUE TO MONITOR.
[2018-12-11 07:00] VITALS: BP 110/73
[2018-12-11 08:16] LABS: CREATININE 1.2 mg/dL (0.6-1.3); POTASSIUM 3.7 mmol/L (3.5-5.1)
[2018-12-11] MEDS: DOCUSATE SODIUM 100 MG CAPSULE PO SCH ×2 (09:00→17:00)
--- NOTE | 2018-12-11 09:00 | NUR ---
Received patient, awake, alert x1-2. Baseline LOC, with lethargy and slow speech. Not in any form of distress. Wakes up on voice and touch. No head ache or dizziness noted. Denies any pain
[2018-12-11] MEDS: DESMOPRESSIN 4 MCG/1 ML VIAL SUBCUT SCH ×2 (09:32→20:58)
[2018-12-11] MEDS: ASPIRIN EC 81 MG TABLET.DR PO SCH (09:32)
[2018-12-11] MEDS: LACOSAMIDE 50 MG TABLET PO SCH ×2 (09:33→20:57)
--- NOTE | 2018-12-11 14:30 | NUR ---
Up with physical therapy, patient more cooperative today, but with still some lethargy and disorientation. Was able to ambulate in the unit.
--- NOTE | 2018-12-11 15:00 | NUR ---
Patient refused Colace said he did not need it. Patient lethargic, with attempts to discuss risks and benefits.
[2018-12-11 16:13] VITALS: BP 105/63
[2018-12-11] MEDS: MAGNESIUM HYDROXIDE 30 ML LIQUID UDC PO SCH (20:57)
[2018-12-11] MEDS: risperiDONE 1 MG TABLET PO SCH (20:57)
[2018-12-11 21:24] VITALS: BP 126/68
--- NOTE | 2018-12-11 23:59 | NUR ---
Received pt in bed, appearing to be asleep but easily arousable to verbal and tactile stimuli. Noted with baseline LOC (x 1-2) and slurred speech, but able to communicate needs. Denies pain or discomfort. No acute distress noted. VSS & WNL. Refused MOM, stating he does not need it. All other due medications given as ordered, tolerated well. All safety measures and fall precautions maintained. Call light and all personal belongings within reach. Will continue to monitor.
[2018-12-12 04:50] VITALS: BP 93/72
[2018-12-12] MEDS: LEVOTHYROXINE SODIUM 150 MCG TABLET PO SCH (06:17)
[2018-12-12 08:46] LABS: CREATININE 0.9 mg/dL (0.6-1.3); POTASSIUM 3.4 mmol/L (3.5-5.1)
[2018-12-12] MEDS: DOCUSATE SODIUM 100 MG CAPSULE PO SCH ×2 (08:47→16:41)
[2018-12-12] MEDS: ASPIRIN EC 81 MG TABLET.DR PO SCH (08:47)
[2018-12-12] MEDS: LACOSAMIDE 50 MG TABLET PO SCH ×2 (08:47→21:16)
[2018-12-12] MEDS: DESMOPRESSIN 4 MCG/1 ML VIAL SUBCUT SCH (08:47)
[2018-12-12] MEDS ORDERED: POTASSIUM CHLORIDE 20 MEQ TAB.PRT.SR PO ONE ×2 (10:00→10:15)
[2018-12-12 12:10] VITALS: BP 103/64
--- NOTE | 2018-12-12 12:22 | NUR ---
Received patient awake in stable condition. Potassium of 3.4 result. MD Caballero notified ordered Potassium Chloride 40meq PO. not in distress. will continue monitor
[2018-12-12] MEDS: ACETAMINOPHEN 325 MG TABLET PO PRN (14:31)
--- NOTE | 2018-12-12 15:39 | NUR ---
Patient refuse to eat lunch. ensure chocolate liquid given. tolerated well. will continue monitor
[2018-12-12 18:25] VITALS: BP 108/71
--- NOTE | 2018-12-12 18:29 | NUR ---
UA collected, sent to lab. awaiting result
--- NOTE | 2018-12-12 18:43 | NUR ---
Patient redness/scab left forearm noted. for wound consult. picture taken. no complaint of itchiness. will continue monitor
[2018-12-12 20:02] VITALS: BP 108/66
[2018-12-12] MEDS: MAGNESIUM HYDROXIDE 30 ML LIQUID UDC PO SCH (21:00)
[2018-12-12] MEDS: risperiDONE 1 MG TABLET PO SCH (21:16)
[2018-12-12] MEDS: DESMOPRESSIN 0.1 MG TABLET PO SCH (21:16)
--- NOTE | 2018-12-12 23:02 | NUR ---
Pt awoke and assisted to bathroom x 1 person standby assistance. BM x 1, soft. Requesting shower. Shower given. Safety maintained.
[2018-12-13 05:12] VITALS: BP 117/70
[2018-12-13] MEDS: LEVOTHYROXINE SODIUM 150 MCG TABLET PO SCH (06:10)
[2018-12-13 08:00] VITALS: BP 117/82
[2018-12-13] MEDS: LACOSAMIDE 50 MG TABLET PO SCH ×2 (08:29→20:27)
[2018-12-13] MEDS: DOCUSATE SODIUM 100 MG CAPSULE PO SCH ×2 (08:31→16:56)
[2018-12-13] MEDS: ASPIRIN EC 81 MG TABLET.DR PO SCH (08:31)
[2018-12-13] MEDS: DESMOPRESSIN 0.1 MG TABLET PO SCH ×2 (08:31→20:27)
[2018-12-13 10:43] LABS: POTASSIUM 3.8 mmol/L (3.5-5.1)
--- NOTE | 2018-12-13 11:51 | NUR ---
Received patient awake in bed. Alert and orientedx2 in stable condition. not in distress. Continue therapy for ambulation and ADL ability. no complaint of pain/discomfort. awaiting result of BMP. Seen by MD Caballero. Continue plan of care. will continue monitor
[2018-12-13 16:00] VITALS: BP_SYST 113; BP_SYST 99; BP_DIAS 42; BP_DIAS 60
[2018-12-13] MEDS: ACETAMINOPHEN 325 MG TABLET PO PRN (16:59)
--- NOTE | 2018-12-13 19:25 | NUR ---
SBAR received from day shift. Alert and oriented x 2-3. Patient sleeping upon assessment, but arousable to name and tactile stimuli. No C/O pain, SOB, or distress. Side rails up bilaterally for safety. Call light and frequently used items within reach. Will continue to monitor.
--- NOTE | 2018-12-13 19:47 | NUR ---
MD sales and production manager contact for low blood pressure of 89/57. Follow up blood pressure in one hour. No knew orders as of now. Will continue to monitor.
[2018-12-13 20:26] VITALS: BP 89/51
[2018-12-13] MEDS: MAGNESIUM HYDROXIDE 30 ML LIQUID UDC PO SCH (20:27)
[2018-12-13] MEDS: risperiDONE 1 MG TABLET PO SCH (20:27)
[2018-12-13 20:59] VITALS: BP 96/92
[2018-12-13 21:52] VITALS: BP 114/69
[2018-12-14 05:33] VITALS: BP 97/61
[2018-12-14] MEDS: LEVOTHYROXINE SODIUM 150 MCG TABLET PO SCH (06:11)
--- NOTE | 2018-12-14 06:30 | NUR ---
Patient assisted to the bathroom multiple times during shift. BP stable. All due medications given-tolerated well. No C/O pain or distress at this time. Side rails up bilaterally for safety. Call light and frequently used items within reach. Will endorse to oncoming shift accordingly.
[2018-12-14 07:46] LABS: BASOPHILS % (AUTO) 0.6 % (0.0-2.0); EOSINOPHILS # (AUTO) 0.6 K/uL (0.0-0.7); EOSINOPHILS % (AUTO) 8.9 % (0.0-7.0); HEMATOCRIT 42.5 % (36.7-47.1); HEMOGLOBIN 14.4 g/dL (12.5-16.3); LYMPHOCYTES # (AUTO) 2.5 K/uL (20.0-40.0); LYMPHOCYTES % (AUTO) 40.2 % (20.5-51.5); MEAN CORPUSCULAR HEMOGLOBIN 30.1 uug (23.8-33.4); MEAN CORPUSCULAR HGB CONC 34 g/dL (32.5-36.3); MONOCYTES # (AUTO) 0.5 K/uL (2.0-10.0); MONOCYTES % (AUTO) 8.8 % (0.0-11.0); NEUTROPHILS # (AUTO) 2.6 K/uL (1.8-8.9); NEUTROPHILS % (AUTO) 41.5 % (38.5-71.5); PLATELET COUNT (AUTO) 324 K/uL (152-348); RED BLOOD CELL COUNT(AUTO) 4.78 MIL/uL (4.06-5.63); WHITE BLOOD COUNT (AUTO) 6.2 K/uL (3.6-10.2)
[2018-12-14 07:55] LABS: BILIRUBIN,TOTAL 0.4 mg/dL (0.2-1.0); CREATININE 0.9 mg/dL (0.6-1.3); MAGNESIUM 2.4 mg/dL (1.8-2.4); PHOSPHOROUS 4.6 mg/dL (2.5-4.9); POTASSIUM 3.7 mmol/L (3.5-5.1); TOTAL PROTEIN, SERUM 9.3 g/dL (6.4-8.2)
[2018-12-14 08:00] VITALS: BP 109/69
[2018-12-14] MEDS: LACOSAMIDE 50 MG TABLET PO SCH ×2 (10:04→20:24)
[2018-12-14] MEDS: DOCUSATE SODIUM 100 MG CAPSULE PO SCH ×2 (10:04→17:00)
[2018-12-14] MEDS: ASPIRIN EC 81 MG TABLET.DR PO SCH (10:04)
[2018-12-14] MEDS: DESMOPRESSIN 0.1 MG TABLET PO SCH ×2 (10:07→20:24)
[2018-12-14 16:00] VITALS: BP 112/71
[2018-12-14] MEDS: MAGNESIUM HYDROXIDE 30 ML LIQUID UDC PO SCH (20:24)
[2018-12-14] MEDS: risperiDONE 1 MG TABLET PO SCH (20:24)
[2018-12-14 20:25] VITALS: BP 124/70
--- NOTE | 2018-12-14 21:28 | NUR ---
Patient alert and oriented x 1-2. Sleeping upon entering room, but easily arousable to verbal and tactile stimuli. Family at bedside. No C/O pain or distress at this time. side rail sup bilaterally for safety. Side rails up bilaterally for safety. Call light and frequently used items within reach. Will continue to monitor.
--- NOTE | 2018-12-15 04:30 | NUR ---
Patient tachycardic at 138 and tachypneic at 36. MD foundation maker paged. Waiting for reply. Will continue to monitor.
[2018-12-15 04:48] VITALS: BP 113/67
--- NOTE | 2018-12-15 05:39 | NUR ---
c application developer order stat chest x-ray. Order placed. Will continue to monitor.
[2018-12-15] MEDS: LEVOTHYROXINE SODIUM 150 MCG TABLET PO SCH (06:07)
--- NOTE | 2018-12-15 06:46 | NUR ---
Patient slept intermittently during the night. Heart rate and respirations still elevated. Awaiting stat chest x-ray per MD order. All due medications given-tolerated well. Side rails up for safety. Call light and frequently used items within reach. Will continue to monitor.
[2018-12-15 07:00] VITALS: BP 116/82
--- NOTE | 2018-12-15 07:30 | NUR ---
RECEIVED PATIENT IN BED ASLEEP, EASILY AROUSABLE, VERBALLY RESPONSIVE, ON O2 2LITER PER MINUTE VIA NASAL CANULA, O2 SAT IS 97%.
[2018-12-15] MEDS: ASPIRIN EC 81 MG TABLET.DR PO SCH (09:43)
[2018-12-15] MEDS: DOCUSATE SODIUM 100 MG CAPSULE PO SCH (09:43)
[2018-12-15] MEDS: LACOSAMIDE 50 MG TABLET PO SCH (09:43)
[2018-12-15] MEDS: DESMOPRESSIN 0.1 MG TABLET PO SCH (09:44)
[2018-12-15] MEDS: ACETAMINOPHEN 325 MG TABLET PO PRN (09:49)
--- NOTE | 2018-12-15 09:50 | NUR ---
Patient awake, verbally responsive, on O2 at 2LPM via nasal cannula. He denies any pain or discomfort at this time. Due medications administered and patient tolerated well. Tylenol administered for temp 100.9
--- NOTE | 2018-12-15 10:20 | NUR ---
Informed Dr. Federico Miller regarding noted tachycardia and tachypnea as endorsed by weight shifter nurse. Per MD he will go see the patient
--- NOTE | 2018-12-15 10:24 | NUR ---
patient is seen and examined by dr Federico Miller with new orders to draw stat labs cbc, cmp,ua culture and senstivity, blood culture stat and ABGs.orders are carried out.
[2018-12-15 10:58] LABS: ABG BASE EXCESS 1.4 mmol/L; ABG HCO3 26.1 mmol/L; ABG PCO2 41.4 mmHg (35.0-45.0); ABG PH 7.417 (7.350-7.450); ABG PO2 83.3 mmHg (75.0-100.0); ABG SITE RIGHT RADIAL; ABG TOTAL HEMOGLOBIN 14.9 G/dL (13.5-18.0); COHb 1.5 % (0.5-1.5); MetHb 0.4 % (0.0-1.5); O2Hb 94.9 % (94.0-97.0); VENT MODE Nasal Cannula
[2018-12-15 11:01] LABS: BASOPHILS # (AUTO) 0.1 K/uL (0.0-8.0); BASOPHILS % (AUTO) 0.7 % (0.0-2.0); EOSINOPHILS # (AUTO) 0.3 K/uL (0.0-0.7); EOSINOPHILS % (AUTO) 3.1 % (0.0-7.0); HEMATOCRIT 48.1 % (36.7-47.1); HEMOGLOBIN 15.7 g/dL (12.5-16.3); LYMPHOCYTES # (AUTO) 4.5 K/uL (20.0-40.0); LYMPHOCYTES % (AUTO) 44.2 % (20.5-51.5); MEAN CORPUSCULAR HEMOGLOBIN 29.9 uug (23.8-33.4); MEAN CORPUSCULAR HGB CONC 33 g/dL (32.5-36.3); MEAN CORPUSCULAR VOLUME 91.3 fL (73.0-96.2); MONOCYTES # (AUTO) 0.9 K/uL (2.0-10.0); MONOCYTES % (AUTO) 8.5 % (0.0-11.0); NEUTROPHILS # (AUTO) 4.5 K/uL (1.8-8.9); NEUTROPHILS % (AUTO) 43.5 % (38.5-71.5); PLATELET COUNT (AUTO) 475 K/uL (152-348); RED BLOOD CELL COUNT(AUTO) 5.27 MIL/uL (4.06-5.63); WHITE BLOOD COUNT (AUTO) 10.2 K/uL (3.6-10.2)
[2018-12-15 11:04] LABS: BILIRUBIN,TOTAL 0.6 mg/dL (0.2-1.0); CREATININE 1.6 mg/dL (0.6-1.3); TOTAL PROTEIN, SERUM 9.7 g/dL (6.4-8.2)
--- NOTE | 2018-12-15 12:00 | NUR ---
LABS REPORTED TO DR LEGER WITH ORDER TO START IV 1/2 NORMAL SALINE AT 100 ML/HR, AND CEFTRIAXONE 1GM DAILY, CBC, BMP IN AM. IV STARTED ON LEFT ANTECUBITAL, 1/2 NORMAL RUNNING AT 100 ML/HR. CEFTRIAXONE ADMINISTERED ORDERED. PATIENT IS RESPONSIVE TO VERBAL COMMANDS, AND FOLLOWS. DRANK ENSURE AND WATER.
[2018-12-15] MEDS ORDERED: IV 1/2NS 1000 ML 1,000 ML IV PRN (12:15)
[2018-12-15] MEDS ORDERED: CEFTRIAXONE 1 G in IV DEXTROSE 5% 50 ML IV SCH (13:00)
--- NOTE | 2018-12-15 13:00 | NUR ---
Assisted patient with the use of urinal, collected sample for UA with C&S and sent to laboratory.
[2018-12-15 13:23] LABS: *BILIRUBIN,URIN NEGATIVE (NEGATIVE); *BLOOD, URINE NEGATIVE (NEGATIVE); *CLARITY,URINE CLEAR (CLEAR); *COLOR,URINE YELLOW (YELLOW); *KETONES,URINE NEGATIVE (NEGATIVE); *UROBILINOGEN,URINE 0.2 E.U./dl (NORMAL); LEUKOCYTE ESTERASE ,URINE NEGATIVE (NEGATIVE); NITRITE, URINE NEGATIVE (NEGATIVE); UGLUCOSE NEGATIVE (NEGATIVE)
[2018-12-15 13:29] LABS: BACTERIA,URINE NONE SEEN /HPF (NONE SEEN); RBC,URINE 0-3 /HPF (0-3); WBC,URINE 0-3 /HPF (0-3)
[2018-12-15 13:31] LABS: MUCUS,URINE MODERATE /LPF (0-FEW); SQUAMOUS EPITHELIAL CELL,UR FEW /HPF (NONE SEEN)
[2018-12-15 16:01] VITALS: BP 106/41
--- NOTE | 2018-12-15 16:20 | NUR ---
Notified Dr. Miller regarding patient's HR and temperature of 101.6. MD ordered to transfer patient to telemetry.
--- NOTE | 2018-12-15 16:22 | NUR ---
Called [facility] for report and which room patient will go to, but charge nurse will call back
[2018-12-15] MEDS ORDERED: ATROPINE SULFATE 1 MG/10 ML DISP.SYRIN IV ONE (16:30)
--- NOTE | 2018-12-15 16:30 | NUR ---
Patient noted to be unresponsive, O2 sat 86, HR 55. Called for rapid response
--- NOTE | 2018-12-15 16:33 | NUR ---
Vital signs not appreciated, called for code blue.
--- NOTE | 2018-12-15 16:55 | NUR ---
Patient transferred to CCU. Dr. Federico Miller and Dr. Godfrey made aware.
[2018-12-15] MEDS ORDERED: DESMOPRESSIN 0.1 MG TABLET PO SCH (21:00)
[2018-12-16] MEDS ORDERED: DESM0.1T4 PO (16:00)
== END 2018-12-15 16:55 | disposition short-term general hospital (02) | DRG 862 ==
PROVIDERS: ADMIT Physical Medicine & Rehabilitation Pain Medicine; ATTEND Physical Medicine & Rehabilitation Pain Medicine
DX: Z48.3 Aftercare following surgery for neoplasm (principal); A41.9 Sepsis, unspecified organism; E23.2 Diabetes insipidus; K76.0 Fatty (change of) liver, not elsewhere classified; E23.0 Hypopituitarism; E86.0 Dehydration; E78.5 Hyperlipidemia, unspecified; G40.909 Epilepsy, unspecified, not intractable, without status epilepticus; Z98.2 Presence of cerebrospinal fluid drainage device; E66.9 Obesity, unspecified; Z68.30 Body mass index [BMI] 30.0-30.9, adult; Z88.8 Allergy status to other drugs, medicaments and biological substances; R00.0 Tachycardia, unspecified; R74.0 Nonspecific elevation of levels of transaminase and lactic acid dehydrogenase [LDH]; R45.1 Restlessness and agitation; J98.11 Atelectasis; R35.0 Frequency of micturition
CPT/HCPCS: 36415; 36600; 70030-TC; 71045; 71046; 83735; 84100; 84300; 85025; 87040; 87086; 92507; 92523; 97110; 97112; 97116; 97530; 97535; J0461; J0696; J1630; J2597; J3490; J7042; J7060; J7070

== ENCOUNTER 2018-12-15 16:59 | Inpatient (IN) | payer OTHER ==
[~2018-12-15] VITALS: Ht 175.3 cm; Wt 104.3 kg
[2018-12-15] VITALS (28 sets, daily range): BP systolic 50–165; BP diastolic 34–105
[~2018-12-15 16:59] MED LIST changes: +AMIODARONE HCL 150 MG/3 ML VIAL IV ONE; +ATROPINE SULFATE 1 MG/10 ML DISP.SYRIN IV ONE; +DEXTROSE 50% 50 ML DISP.SYRIN IV ONE; +EPINEPHRINE 1:10,000 1 MG/10 ML DISP.SYRIN IV ONE; -IBUP-1955 PO; +IV NORMAL SALINE 1000 ML BAG IV ONE; +MAGNESIUM SULFATE 1 GM/2 ML VIAL IM ONE; +SODIUM BICARBONATE 8.4% 50 MEQ/50 ML DISP.SYRIN IV ONE
--- NOTE | 2018-12-15 17:00 | NUR ---
PATIENT BROUGHT UP FROM S/P CODE BLUE FROM REHAB UNIT. PATIENT BROUGHT IN UNSTABLE ON THE MONITOR INTUBATED WITH ER DOCTOR, SIX SIGMA BLACK BELT ENGINEER, RT, AND OTHER NURSING STAFF.
[2018-12-15] MEDS ORDERED: PROPOFOL 100 ML IV PRN ×2 (17:15)
[2018-12-15] MEDS ORDERED: NOREPINEPHRINE BITARTRATE 8 MG in IV DEXTROSE 5% 500 ML IV PRN ×2 (17:15→18:15)
[2018-12-15] MEDS: DOPamine IV DRIP 400 MG/250ML 250 ML IV PRN ×3 (17:20→22:43)
--- NOTE | 2018-12-15 17:29 | NUR ---
PT WAS INTUBATED AND PLACED ON MECHANICAL VENTILATION DUE TO RESPIRATORY FAILURE. CURRENT VENT SETTINGS ARE AC 18, Vt 500, +5, 100 FIO2. 7.5 ETT IS PATENT AND SECURED WITH TUBE FRAGA AT APPROX 23CM LIP LINE L SIDE. SUCTIONED LARGE AMOUNTS OF THICK YELLOW GREEN SECRETIONS. ALARMS ARE ON AND AUDIBLE, BVM AT BEDSIDE. WILL CONTINUE TO MONITOR.
[2018-12-15 17:53] LABS: BASOPHILS # (AUTO) 0.1 K/uL (0.0-8.0); BASOPHILS % (AUTO) 0.5 % (0.0-2.0); EOSINOPHILS # (AUTO) 0.7 K/uL (0.0-0.7); EOSINOPHILS % (AUTO) 2.3 % (0.0-7.0); HEMATOCRIT 34.8 % (36.7-47.1); HEMOGLOBIN 10.2 g/dL (12.5-16.3); LYMPHOCYTES # (AUTO) 10.5 K/uL (20.0-40.0); LYMPHOCYTES % (AUTO) 35.5 % (20.5-51.5); MEAN CORPUSCULAR HEMOGLOBIN 29.3 uug (23.8-33.4); MEAN CORPUSCULAR HGB CONC 29 g/dL (32.5-36.3); MEAN CORPUSCULAR VOLUME 99.4 fL (73.0-96.2); MONOCYTES # (AUTO) 1.6 K/uL (2.0-10.0); MONOCYTES % (AUTO) 5.3 % (0.0-11.0); NEUTROPHILS # (AUTO) 16.7 K/uL (1.8-8.9); NEUTROPHILS % (AUTO) 56.4 % (38.5-71.5); PLATELET COUNT (AUTO) 322 K/uL (152-348); WHITE BLOOD COUNT (AUTO) 29.7 K/uL (3.6-10.2)
[2018-12-15] MEDS ORDERED: PHENYLEPHRINE IV 20 MG in IV DEXTROSE 5% 250 ML IV PRN ×2 (18:00→18:15)
[2018-12-15] MEDS ORDERED: MEROPENEM 1 G in IV NORMAL SALINE 100 ML IV SCH (18:00)
--- NOTE | 2018-12-15 18:00 | NUR ---
dr. vizcaino came in and ordered vt to be increased to 700.
[2018-12-15] MEDS ORDERED: VASOPRESSIN 50 UNIT in IV DEXTROSE 5% 500 ML IV PRN (18:15)
[2018-12-15] MEDS ORDERED: DOPamine IV DRIP 400 MG/250ML 250 ML IV PRN (18:15)
[2018-12-15 18:19] LABS: BILIRUBIN,TOTAL 0.3 mg/dL (0.2-1.0); CREATININE 3.5 mg/dL (0.6-1.3); POTASSIUM 4.1 mmol/L (3.5-5.1); TOTAL PROTEIN, SERUM 8.1 g/dL (6.4-8.2)
[2018-12-15] MEDS ORDERED: IV NS 1000 ML 1,000 ML IV STA (18:22)
[2018-12-15] MEDS ORDERED: PIPERACILLIN SODIUM/TAZOBACTAM 4.5 G in IV DEXTROSE 5% 50 ML IV SCH (18:45)
--- NOTE | 2018-12-15 19:10 | NUR ---
RECEIVED PT INTUBATED AND ON MECHANICAL VENTILATION WITH CURRENT VENT SETTINGS OF AC 18, Vt 700, +5, 100 FIO2. 7.5 ETT IS PATENT AND SECURED WITH TUBE FRAGA AT APPROX 23CM LIP LINE. SUCTIONED SMALL AMOUNTS OF THICK PALE YELLOW SECRETIONS. ABG AND SPUTUM COLLECTED AT THIS TIME. ALARMS ARE ON AND AUDIBLE, BVM AT BEDSIDE. WILL CONTINUE TO MONITOR.
[2018-12-15] MEDS: HYDROCORTISONE SOD SUCCINATE 100 MG/2 ML VIAL IV SCH ×2 (19:11→21:21)
[2018-12-15] MEDS: PANTOPRAZOLE SODIUM 40 MG VIAL IV SCH (19:15)
[2018-12-15] MEDS: MEROPENEM 1 G in IV NORMAL SALINE 100 ML IV SCH (19:24)
[2018-12-15] MEDS ORDERED: VANCOMYCIN IV 1,500 MG in IV DEXTROSE 5% 500 ML IV ONE (19:30)
--- NOTE | 2018-12-15 19:40 | NUR ---
ABG DONE. MD ORDER DECREASE RR TO 16 AND FIO2 TO 80%. NEXT ABG ORDER FOR 2200
[2018-12-15] MEDS ORDERED: IV NS 1000 ML 1,000 ML IV ONE ×4 (19:45)
[2018-12-15] MEDS ORDERED: SODIUM BICARBONATE 8.4% 50 MEQ/50 ML DISP.SYRIN IV ONE ×2 (19:45→20:30)
--- NOTE | 2018-12-15 19:52 | NUR ---
CLINICAL PHARMACY NOTE; VANCOMYCIN DOSING Request for vancomycin dosing on 28 y/o male 5'9'' 201lbs for sepsis TEMP 102.8F BUN 18 SCR 3.5 WBC 29.7 also on merrem Give vancomycin 1500mg x 1. Will dose by levels for now scr 3.5. order random level for tomorrow. Will continue to monitor
--- NOTE | 2018-12-15 20:00 | NUR ---
RECEIVED PT NON-RESPONSIVE TO ANY STIMULI, HAS MINIMAL GAG & COUGHING REFLEX. PUPIL FIXED, 6MM KEREN. ON LEVOPHED DRIP @ 40MCQ/MIN VIA R FEM TLC. ON DOPAMINE DRIP @ 30MCQ/KG/MIN. ON NEOSYNEPHRINE DRIP @300MCQ/MIN. ON PITRESSIN DRIP @ 0.2 UNITS/HR. TEMP-98.[address] RECTALLY[address] C-SCOPE ST. WATCHEDPT CLOSELY.
[2018-12-15] MEDS: PHENYLEPHRINE IV 80 MG in IV DEXTROSE 5% 250 ML IV PRN (20:37)
[2018-12-15] MEDS: IV D5 1/2 NS 1000 ML 1,000 ML IV PRN (21:06)
[2018-12-15] MEDS: NOREPINEPHRINE BITARTRATE 16 MG in IV DEXTROSE 5% 500 ML IV PRN (21:24)
[2018-12-15] MEDS ORDERED: IV NS 1000 ML 1,000 ML IV PRN (21:30)
[2018-12-15 21:32] LABS: BAND % (MANUAL) 22 % (0-10); EOSINOPHILS % (MANUAL) 1 % (0-8); LYMPHOCYTES % (MANUAL) 40 % (20-40); MONOCYTES % (MANUAL) 5 % (2-10); NEUTROPHILS % (MANUAL) 28 % (42-75)
[2018-12-15 21:33] LABS: METAMYELOCYTES % 2 % (0-1); MYELOCYTES % 2 % (0-0)
[2018-12-15 21:56] LABS: BASOPHILS # (AUTO) 0.1 K/uL (0.0-8.0); EOSINOPHILS # (AUTO) 0.1 K/uL (0.0-0.7); MEAN CORPUSCULAR HEMOGLOBIN 29.3 uug (23.8-33.4); MEAN CORPUSCULAR HGB CONC 32 g/dL (32.5-36.3); MEAN CORPUSCULAR VOLUME 92.2 fL (73.0-96.2)
[2018-12-15] MEDS ORDERED: HYDROCORTISONE SOD SUCCINATE 100 MG/2 ML VIAL IV SCH (22:00)
--- NOTE | 2018-12-15 22:00 | NUR ---
ORAL GASTRIC TUBE - BERKELEY # 16 INSERTED CONNECTED TO INTERMITTENT LOW SUCTION W/ BILE DRAINAGE. KEEP HOB ELEVATED.
[2018-12-15 22:01] LABS: ABG BASE EXCESS -7.6 mmol/L; ABG HCO3 16.3 mmol/L; ABG PCO2 29.5 mmHg (35.0-45.0); ABG PO2 65.1 mmHg (75.0-100.0); ABG SITE LEFT RADIAL; ABG TOTAL HEMOGLOBIN 15.1 G/dL (13.5-18.0); MetHb 0.4 % (0.0-1.5); O2Hb 90.6 % (94.0-97.0); VENT MODE VENT - A/C; VT, ABG 700 mL
[2018-12-15 23:30] LABS: RED BLOOD CELL COUNT(AUTO) 4.27 MIL/uL (4.06-5.63); WHITE BLOOD COUNT (AUTO) 21.7 K/uL (3.6-10.2)
[2018-12-15 23:31] LABS: BASOPHILS % (AUTO) 0.6 % (0.0-2.0); EOSINOPHILS % (AUTO) 0.3 % (0.0-7.0); HEMATOCRIT 39.4 % (36.7-47.1); HEMOGLOBIN 12.5 g/dL (12.5-16.3); LYMPHOCYTES # (AUTO) 2.1 K/uL (20.0-40.0); LYMPHOCYTES % (AUTO) 9.6 % (20.5-51.5); MONOCYTES % (AUTO) 3.7 % (0.0-11.0); NEUTROPHILS # (AUTO) 18.6 K/uL (1.8-8.9); NEUTROPHILS % (AUTO) 85.8 % (38.5-71.5); PLATELET COUNT (AUTO) 370 K/uL (152-348)
[2018-12-15 23:32] LABS: BILIRUBIN,TOTAL 0.7 mg/dL (0.2-1.0); CREATININE 2.8 mg/dL (0.6-1.3); TOTAL PROTEIN, SERUM 7.6 g/dL (6.4-8.2)
[2018-12-15 23:32] LABS: MONOCYTES # (AUTO) 0.8 K/uL (2.0-10.0)
[2018-12-15 23:42] LABS: POTASSIUM 2.2 mmol/L (3.5-5.1)
[2018-12-16] VITALS (68 sets, daily range): BP systolic 102–147; BP diastolic 65–107
[2018-12-16] MEDS ORDERED: POTASSIUM CHLORIDE 50 ML IV SCH
--- NOTE | 2018-12-16 | NUR ---
TITRATED DOWN ALLTHE DRIPS ACCDG TO PARAMETER.
[2018-12-16] MEDS ORDERED: Z GUARD REMEDY PASTE 57 GM TUBE TOP PRN (00:15)
[2018-12-16] MEDS: POTASSIUM CHLORIDE 50 ML IV SCH ×9 (00:23→10:47)
--- NOTE | 2018-12-16 00:30 | NUR ---
BED BATH GIVEN, OFF COOLING MATTRESS. REPOSITIONED ON HIS SIDE W/ HOB ELEVATED.
[2018-12-16] MEDS: PHENYLEPHRINE IV 80 MG in IV DEXTROSE 5% 250 ML IV PRN ×2 (00:57→21:20)
[2018-12-16] MEDS: IV D5 1/2 NS 1000 ML 1,000 ML IV PRN (03:25)
[2018-12-16 05:23] LABS: BASOPHILS % (AUTO) 0.2 % (0.0-2.0); EOSINOPHILS % (AUTO) 0.2 % (0.0-7.0); HEMATOCRIT 39.3 % (36.7-47.1); HEMOGLOBIN 12.9 g/dL (12.5-16.3); LYMPHOCYTES # (AUTO) 1.5 K/uL (20.0-40.0); MEAN CORPUSCULAR HEMOGLOBIN 29.6 uug (23.8-33.4); MEAN CORPUSCULAR HGB CONC 33 g/dL (32.5-36.3); MEAN CORPUSCULAR VOLUME 90.4 fL (73.0-96.2); MONOCYTES # (AUTO) 0.5 K/uL (2.0-10.0); MONOCYTES % (AUTO) 2.8 % (0.0-11.0); NEUTROPHILS # (AUTO) 16.5 K/uL (1.8-8.9); NEUTROPHILS % (AUTO) 88.8 % (38.5-71.5); PLATELET COUNT (AUTO) 377 K/uL (152-348); RED BLOOD CELL COUNT(AUTO) 4.35 MIL/uL (4.06-5.63); WHITE BLOOD COUNT (AUTO) 18.6 K/uL (3.6-10.2)
[2018-12-16] MEDS: HYDROCORTISONE SOD SUCCINATE 100 MG/2 ML VIAL IV SCH ×3 (05:38→21:26)
[2018-12-16 05:39] LABS: BILIRUBIN,TOTAL 0.6 mg/dL (0.2-1.0); CREATININE 2.6 mg/dL (0.6-1.3); POTASSIUM 3.4 mmol/L (3.5-5.1); TOTAL PROTEIN, SERUM 7.7 g/dL (6.4-8.2)
--- NOTE | 2018-12-16 06:00 | NUR ---
mindi peter called re: [id number] w/ order. regular insulin 10 subcu given on l deltoid.
[2018-12-16] MEDS ORDERED: INSULIN REGULAR, HUMAN 300 UNIT/3 ML VIAL SQ PRN (06:15)
[2018-12-16] MEDS ORDERED: INSULIN REGULAR, HUMAN 300 UNIT/3 ML VIAL SQ ONE (06:15)
[2018-12-16] MEDS ORDERED: DEXTROSE 50% 50 ML DISP.SYRIN IV PRN ×2 (06:15→15:00)
[2018-12-16] MEDS ORDERED: INSULIN REGULAR, HUMAN 300 UNITS/3 ML VIAL SQ PRN (06:15)
[2018-12-16] MEDS: MEROPENEM 1 G in IV NORMAL SALINE 100 ML IV SCH ×2 (06:27→17:12)
[2018-12-16 06:33] LABS: ABG BASE EXCESS -5.2 mmol/L; ABG HCO3 18.3 mmol/L; ABG PCO2 30.1 mmHg (35.0-45.0); ABG PH 7.401 (7.350-7.450); ABG PO2 328.1 mmHg (75.0-100.0); ABG SITE RIGHT RADIAL; COHb 1.2 % (0.5-1.5); MetHb 0.3 % (0.0-1.5); O2Hb 98.2 % (94.0-97.0); VENT MODE VENT - A/C; VT, ABG 700 mL
--- NOTE | 2018-12-16 06:39 | NUR ---
off dopamine drip , off pitressin drip. levophed drip @ 20mcq/min. neosynephrine drip @ 50mcq/min.
[2018-12-16] MEDS: ACETAMINOPHEN 650 MG SUPP.RECT RC PRN (07:05)
[2018-12-16] MEDS: PANTOPRAZOLE SODIUM 40 MG VIAL IV SCH (07:56)
--- NOTE | 2018-12-16 08:33 | NUR ---
Dr. Hartman here to see pt. Full report given. New orders received.
--- NOTE | 2018-12-16 09:11 | NUR ---
Dr. Bishop here to see pt. Full report given. No new orders received. Addendum: 12/16/18 at 1035 by ARUNA CLARK RN stated that it was okay to discontinue q6hr labs.
[2018-12-16 10:30] LABS: *BILIRUBIN,URIN NEGATIVE (NEGATIVE); *BLOOD, URINE 3+ (NEGATIVE); *CLARITY,URINE CLEAR (CLEAR); *COLOR,URINE YELLOW (YELLOW); *KETONES,URINE NEGATIVE (NEGATIVE); *UROBILINOGEN,URINE 0.2 E.U./dl (NORMAL); LEUKOCYTE ESTERASE ,URINE NEGATIVE (NEGATIVE); NITRITE, URINE NEGATIVE (NEGATIVE); UGLUCOSE 2+ (NEGATIVE)
[2018-12-16 10:36] LABS: BACTERIA,URINE MODERATE /HPF (NONE SEEN); RBC,URINE 0-3 /HPF (0-3); SQUAMOUS EPITHELIAL CELL,UR FEW /HPF (NONE SEEN); WBC,URINE NONE SEEN /HPF (0-3)
--- NOTE | 2018-12-16 11:58 | NUR ---
Dr. Burgess here to see pt. Full report given. New orders received.
[2018-12-16] MEDS ORDERED: BLOOD SUGAR DIAGNOSTIC 1 EACH STRIP VI SCH (12:00)
[2018-12-16] MEDS ORDERED: DESMOPRESSIN NS SCH (12:15)
--- NOTE | 2018-12-16 12:25 | NUR ---
Dr. Caballero here to see pt. Full report given. New orders received and carried out.
--- NOTE | 2018-12-16 13:49 | NUR ---
- Recommend initiate tube feeding, monitoring closely for signs of intolerance or change in hemodynamics. - Recommend Glucerna 1.2 at 65mL/hr x20hrs. This provides 1300mL solution, 1560kcal, 78g pro, 1047mL water. - Recommend 100mL water flushes q6h. - Monitor TF intake, GI/LBM tolerance, renal/blood glu/electrolyte labs, skin integrity, weight. Addendum: 12/16/18 at [address] Amended: Links added.
[2018-12-16] MEDS: POTASSIUM CHLORIDE 10 MEQ in IV D5 1/2 NS 1000 ML 1,000 ML IV PRN (14:02)
[2018-12-16] MEDS: LEVOTHYROXINE SODIUM 150 MCG TABLET PO SCH (14:06)
[2018-12-16] MEDS: DESMOPRESSIN 0.1 MG TABLET NG SCH ×2 (14:06→20:38)
[2018-12-16] MEDS ORDERED: GLUCERNA 1.2 1000ML LIQUID GT PRN (15:00)
--- NOTE | 2018-12-16 15:40 | NUR ---
Brought the pt down to CT with radiology and respiratory therapy. Pt stable and nad noted upon leaving the unit.
[2018-12-16] MEDS ORDERED: DESM0.1T4 PO (16:00)
--- NOTE | 2018-12-16 16:04 | NUR ---
CLINICAL PHARMACY NOTE; VANCOMYCIN DOSING S: Continue vancomycin dosing on 28 y/o male 5'9'' 201lbs for sepsis O:TEMP 98.6F BUN 14 SCR 2.6 WBC 18.6 also on merrem A/P:Will continue to dose per fall-off level for now due to decreased renal function(not on HD yet). Vancomycin 1500mg x1 was given last night at 1925. Vancomycin random is on order for today at 1600. Will follow the level for further dosing. Addendum: 12/16/18 at 1652 by ALECIA SANDERS VANCOMYCIN RANDOM TODAY AT 1600 WAS 9.7. WILL GIVE [id number] TODAY AND CHECK RANDOM TOMORROW AM AT 0600.
--- NOTE | 2018-12-16 16:15 | NUR ---
Pt returned from CT. Pt stable and nad noted upon returning.
[2018-12-16] MEDS ORDERED: VANCOMYCIN IV 1,500 MG in IV NORMAL SALINE 500 ML IV ONE (17:00)
--- NOTE | 2018-12-16 17:16 | NUR ---
RECEIVED STABLE ON CURRENT VENT SETTINGS. TITRATED FI02 TO 60% WITH PATIENT SATURATING 100% DURING THE MORNING HOURS. PATIENT WAS ALSO TRANSPORTED TO CT SCAN AT AROUND 1600 HOURS AND BACK TO CCU WITHOUT COMPLICATIONS. NO CHANGES WAS MADE WITH VENT SETTINGS IN THE AFTERNOON.
[2018-12-16] MEDS: BLOOD SUGAR DIAGNOSTIC 1 EACH STRIP VI SCH ×2 (17:28→23:26)
[2018-12-16] MEDS: INSULIN REGULAR, HUMAN 300 UNIT/3 ML VIAL SQ PRN ×2 (17:29→23:30)
--- NOTE | 2018-12-16 18:34 | NUR ---
Spoke with Dr. Caballero regarding pt's CT results. No new orders received.
--- NOTE | 2018-12-16 20:00 | NUR ---
RECEIVED PT. NONRESPONSIVE TO ANY STIMULI HAS MINIMAL GAG & COUGHING REFLEX. PUPILS ARE FIXED, 6MM KEREN. ON NEOSYNEPHRINE DRIP @ 40 MCQ/MIN VIA R FEM TLC. IVF D51/2NS W/ 10MEQ KCL @ 100 CC/HR. VIA PICC LINE ON GAMAL. HEP LOCK ON RFA INTACT & PATENT. CALLED DR MCLEOD RE: CT SCAN RESULT LEFT MESSAGE ON MAIL BOX. CALLED DR BORJA ALSO RE: THE CT SCAN RESULT & NOTIFIED HIM THAT DR MCLEOD WAS CALLED & NOT ABLE TO RETURN THE CALL THAT WAS EARLIER @ 1700. PT.REMAINS ON HYPOTHERMIA PROTOCOL. REPOSITIONED ON HIS SIDE W/ HOB ELEVATED & SUCTIONED.
--- NOTE | 2018-12-16 20:00 | NUR ---
PT. REMAINS ORALLY INTUBATED W/ SETTINGS OF AC-16, TV-700, FIO2-60%, PEEP-+5.
--- NOTE | 2018-12-16 23:00 | NUR ---
HS CARE DONE. REPOSITIONED & SUCTIONED.
[2018-12-17] VITALS (38 sets, daily range): BP systolic 123–171; BP diastolic 78–105
[2018-12-17] MEDS: MEROPENEM 1 G in IV NORMAL SALINE 100 ML IV SCH ×3 (00:44→17:20)
--- NOTE | 2018-12-17 01:01 | NUR ---
PT ON CONT BUTT VENT WITH 7.5 ET/TUBE IN PLACE, 23CM LIP LINE WITH ANCHOR FAST ADJUST EVERY 2 HOURS, WITH CURRENT VENT SETTINGS, A/C 16, VT 700ML, PEEP5, 60% , PT WITH MOSTLY CONTROLLED VENTILATION, NO TRACKING, SUCTIONED VERY LITTLE YELL. TINGE SECRETIONS, AND ORAL CARE DONE, NO VENT CHANGES MADE AT THIS TIME, ALL VENT ALARMS GOOD, CHANGE HME AND RIBERA, AMBFanny BAG AT BEDSIDE.Sarah MICHAELP Addendum: 12/17/18 at 0104 by JOSÉ MIGUEL MELGAR RT Amended: Links added.
--- NOTE | 2018-12-17 02:00 | NUR ---
AM CARE DONE. ORAL CARE DONE. REPOSITIONED W/ HOB ELEVATED.
[2018-12-17] MEDS: POTASSIUM CHLORIDE 10 MEQ in IV D5 1/2 NS 1000 ML 1,000 ML IV PRN ×2 (03:47→15:53)
[2018-12-17 04:33] LABS: BASOPHILS # (AUTO) 0.1 K/uL (0.0-8.0); BASOPHILS % (AUTO) 0.3 % (0.0-2.0); EOSINOPHILS % (AUTO) 0.1 % (0.0-7.0); HEMATOCRIT 33.6 % (36.7-47.1); HEMOGLOBIN 11.1 g/dL (12.5-16.3); LYMPHOCYTES # (AUTO) 1.7 K/uL (20.0-40.0); LYMPHOCYTES % (AUTO) 8.5 % (20.5-51.5); MEAN CORPUSCULAR HEMOGLOBIN 29.1 uug (23.8-33.4); MEAN CORPUSCULAR HGB CONC 33 g/dL (32.5-36.3); MONOCYTES # (AUTO) 0.8 K/uL (2.0-10.0); MONOCYTES % (AUTO) 4.2 % (0.0-11.0); NEUTROPHILS # (AUTO) 17.3 K/uL (1.8-8.9); NEUTROPHILS % (AUTO) 86.9 % (38.5-71.5); PLATELET COUNT (AUTO) 311 K/uL (152-348); RED BLOOD CELL COUNT(AUTO) 3.82 MIL/uL (4.06-5.63); WHITE BLOOD COUNT (AUTO) 19.8 K/uL (3.6-10.2)
[2018-12-17 04:45] LABS: CREATININE 1.9 mg/dL (0.6-1.3); MAGNESIUM 1.6 mg/dL (1.8-2.4); PHOSPHOROUS 2.9 mg/dL (2.5-4.9); POTASSIUM 3.5 mmol/L (3.5-5.1); VANCOMYCIN,RANDOM 27.3 ug/mL (18.0-26.0)
--- NOTE | 2018-12-17 06:00 | NUR ---
ANOTHER BATH GIVEN . CONT. HYPOTHERMIA PROTOCOL.
[2018-12-17] MEDS: HYDROCORTISONE SOD SUCCINATE 100 MG/2 ML VIAL IV SCH ×3 (06:05→21:18)
[2018-12-17] MEDS: BLOOD SUGAR DIAGNOSTIC 1 EACH STRIP VI SCH ×4 (06:20→23:17)
[2018-12-17 07:46] LABS: ABG BASE EXCESS 0.4 mmol/L; ABG HCO3 22.2 mmol/L; ABG PCO2 28.3 mmHg (35.0-45.0); ABG PH 7.512 (7.350-7.450); ABG PO2 155.3 mmHg (75.0-100.0); ABG SITE RIGHT RADIAL; ABG TOTAL HEMOGLOBIN 13.7 G/dL (13.5-18.0); COHb 0.8 % (0.5-1.5); MetHb 0.2 % (0.0-1.5); O2Hb 98.3 % (94.0-97.0); VENT MODE VENT - A/C; VT, ABG 700 mL
[2018-12-17] MEDS: PANTOPRAZOLE SODIUM 40 MG VIAL IV SCH (08:35)
[2018-12-17] MEDS: LEVOTHYROXINE SODIUM 150 MCG TABLET PO SCH (08:36)
[2018-12-17] MEDS: DESMOPRESSIN 0.1 MG TABLET NG SCH ×2 (08:38→20:58)
--- NOTE | 2018-12-17 10:02 | NUR ---
Pulmonary services, Dr. Hartman in the unit to examine, patient, full report given see order hx. also informed that pt awaiting to be seen by neurology services.
[2018-12-17] MEDS: POTASSIUM CHLORIDE 50 ML IV SCH ×3 (10:55→12:40)
[2018-12-17] MEDS: MAGNESIUM SULFATE/D5W 100 ML IV SCH ×4 (10:55→12:39)
--- NOTE | 2018-12-17 11:40 | NUR ---
Attending physician Dr. Federico Miller in the unit to examine pt. full report given. At this time EEG in progress. Dr. Caballero also discussed pt's case with aviation electronics technician who's also present in the unit. Orders to feed patient received.
[2018-12-17] MEDS ORDERED: BUMETANIDE 1 MG/4 ML VIAL IV ONE (12:30)
--- NOTE | 2018-12-17 12:45 | NUR ---
Dr. Pedro Guo in the unit full report given orders received and implemented. At this time bladder scanned and Dr. mccord of 3cc resulted.
--- NOTE | 2018-12-17 15:04 | NUR ---
CLINICAL PHARMACY NOTE; VANCOMYCIN DOSING S: Continue vancomycin dosing on 28 y/o male 5'9'' 201lbs for sepsis O:TEMP 97.8F BUN 18 SCR 1.9 WBC 19.8 also on merrem random today with am labs: 27.3 A/P: Based on today's random, no dose for today. Renal function continues to improve. Last dose of 1500mg was on 12/16 @1700. Next random ordered with am labs tomorrow. Will check tomorrow and dose as appropriate. Will follow
--- NOTE | 2018-12-17 15:51 | NUR ---
RECEIVED PT ON CURRENT VENT SETTINGS AND NO CHANGES HAS BEEN MADE LATELY EXCEPT FOR O2 TITRATION. PT IS NOW ON FIO2 OF 50% AND SATURATES AROUND 97-100%. ABG WAS DONE IN THE MORNING WITH RESULT PRESENTED TO DR. LOPEZ.
--- NOTE | 2018-12-17 16:40 | NUR ---
Cardiology services called for SBP in the 160's- 170's new orders received. also informed that blood pressure got elevated with pt's pm care. Orders received.
[2018-12-17] MEDS ORDERED: hydrALAZINE HCL 20 MG/1 ML VIAL IV PRN (16:45)
--- NOTE | 2018-12-17 16:45 | NUR ---
Neurology services, Dr. Liseth Sofia in the unit to examine pt. full report given, and informed of EEG test done this morning. also aware of pt's blood pressure. He was also informed that cardiology Dr. Mcfarlane orders to administered hydralazine received and he's ok to medicate patient if SBP above 160's with no new order received.
[2018-12-17] MEDS: INSULIN REGULAR, HUMAN 300 UNIT/3 ML VIAL SQ PRN ×2 (18:42→23:18)
--- NOTE | 2018-12-17 19:45 | NUR ---
Received pt non-verbal, responsive to deep pain, unable to follow commands. Pupils reactive but very sluggish. During oral care, pt has minimal gag reflex, has small amount of thin white secretions. Vent settings: AC 16, TV 700, PEEP 5, FiO2 50%. O2 sat up to 99%. VSS, afebrile. Continuous IVF running. Gtube feedings fairly well tolerated, no residual present. F/C in place. Pt kept clean and dry at all times. Aspiration precautions and safety measures initiated. Continue plan of care. Addendum: 12/17/18 at 2043 by RIDDHI WORLEY RN Amended: Links added.
--- NOTE | 2018-12-17 19:55 | NUR ---
PT RECEIVED ON BUTT VENTILATOR WITH SETTINGS OF A/C 16, VT 700, PEEP +5, FIO2 50%. NO CHANGES MADE AT THIS TIME. WILL TITRATE O2 NEEDED. VENT ALARMS ARE ON AND WORKING PROPERLY. PT IS ORALLY INTUBATED WITH A 7.5 ETT, APPROXIMATELY 23CM AT THE LIP LINE. ETT IS SECURED VIA ANCHOR FAST. ORAL CARE DONE. HME CHANGED. SUCTIONED SMALL AMOUNT OF SECRETIONS. AMBU BAG IS AT BEDSIDE. VENT IS CONNECTED TO RED EMERGENCY OUTLET. WILL CONTINUE TO MONITOR PT THROUGHOUT SHIFT.
[2018-12-18] VITALS (22 sets, daily range): BP systolic 135–166; BP diastolic 71–96
[2018-12-18] MEDS: MEROPENEM 1 G in IV NORMAL SALINE 100 ML IV SCH ×2 (00:23→08:47)
[2018-12-18] MEDS: POTASSIUM CHLORIDE 10 MEQ in IV D5 1/2 NS 1000 ML 1,000 ML IV PRN (01:41)
[2018-12-18 04:49] LABS: BASOPHILS % (AUTO) 0.3 % (0.0-2.0); HEMATOCRIT 28.8 % (36.7-47.1); HEMOGLOBIN 9.4 g/dL (12.5-16.3); LYMPHOCYTES # (AUTO) 1.4 K/uL (20.0-40.0); LYMPHOCYTES % (AUTO) 9.3 % (20.5-51.5); MEAN CORPUSCULAR HEMOGLOBIN 28.9 uug (23.8-33.4); MEAN CORPUSCULAR HGB CONC 33 g/dL (32.5-36.3); MEAN CORPUSCULAR VOLUME 88.5 fL (73.0-96.2); MONOCYTES # (AUTO) 0.7 K/uL (2.0-10.0); MONOCYTES % (AUTO) 4.5 % (0.0-11.0); NEUTROPHILS # (AUTO) 12.6 K/uL (1.8-8.9); NEUTROPHILS % (AUTO) 85.9 % (38.5-71.5); PLATELET COUNT (AUTO) 224 K/uL (152-348); RED BLOOD CELL COUNT(AUTO) 3.25 MIL/uL (4.06-5.63); WHITE BLOOD COUNT (AUTO) 14.7 K/uL (3.6-10.2)
[2018-12-18 04:57] LABS: CREATININE 1.8 mg/dL (0.6-1.3); MAGNESIUM 2.3 mg/dL (1.8-2.4); PHOSPHOROUS 3.5 mg/dL (2.5-4.9); POTASSIUM 3.7 mmol/L (3.5-5.1)
--- NOTE | 2018-12-18 05:30 | NUR ---
AM care rendered, oral care done. Thin white secretions noted. Pt kept clean and dry. Turned and repositioned as needed. HOB elevated at all times. Aspiration and seizure precautions observed. VSS, afebrile. Will continue to monitor.
[2018-12-18] MEDS: HYDROCORTISONE SOD SUCCINATE 100 MG/2 ML VIAL IV SCH ×3 (05:32→21:43)
[2018-12-18] MEDS: BLOOD SUGAR DIAGNOSTIC 1 EACH STRIP VI SCH ×4 (05:33→23:41)
[2018-12-18] MEDS: INSULIN REGULAR, HUMAN 300 UNIT/3 ML VIAL SQ PRN ×3 (05:39→23:45)
--- NOTE | 2018-12-18 07:15 | NUR ---
abg drawn with result handed to MOHAMUD Lion.
[2018-12-18 07:32] LABS: ABG HCO3 20.8 mmol/L; ABG PCO2 22.8 mmHg (35.0-45.0); ABG PH 7.579 (7.350-7.450); ABG PO2 175.2 mmHg (75.0-100.0); ABG SITE RIGHT RADIAL; COHb 0.7 % (0.5-1.5); MetHb 0.2 % (0.0-1.5); O2Hb 98.7 % (94.0-97.0); VENT MODE VENT - A/C; VT, ABG 700 mL
--- NOTE | 2018-12-18 07:45 | NUR ---
Nursing Note: Pt turned and repositioned. Am care provided. Offloading and heels elevated. Full body assessment done. Bed in low and locked position.
--- NOTE | 2018-12-18 08:00 | NUR ---
Nursing Note: ABG results received. Relayed to MD. New order for vent setting changes. Rate 12 Tidal volume 600. Tolerated well. Addendum: 12/18/18 at 1804 by DERICK HUITRON RN Ventilator changes made with MD at bedside.
[2018-12-18] MEDS: LEVOTHYROXINE SODIUM 150 MCG TABLET PO SCH (08:26)
[2018-12-18] MEDS ORDERED: VANCOMYCIN IV 1,500 MG in IV DEXTROSE 5% 500 ML IV ONE (08:30)
[2018-12-18] MEDS: PANTOPRAZOLE SODIUM 40 MG VIAL IV SCH (08:47)
[2018-12-18] MEDS: DESMOPRESSIN 0.1 MG TABLET NG SCH ×2 (08:47→20:57)
--- NOTE | 2018-12-18 09:10 | NUR ---
DR LOPEZ CAME IN WITH NEW ORDERS. RR DECREASE TO 12 AND VT DECREASE TO 600. MOHAMUD SEPULVEDA MADE CHANGES TO THE VENTILATOR BEFORE RT CAME TO THE UNIT.
--- NOTE | 2018-12-18 09:15 | NUR ---
Nursing Note: Pt noted with abnormal rhythm. New order for EKG.
--- NOTE | 2018-12-18 10:07 | NUR ---
CLINICAL PHARMACY NOTE; VANCOMYCIN DOSING S: Continue vancomycin dosing on 28 y/o male patient for sepsis (s/p code blue on 12/15) O:TEMP 98F BUN 23 SCR 1.8 WBC 14.7 random today with am labs: 9 mcg/ml (post vanco 1500mg was on 12/16 at 1700 A/P: Since vanco random level is 9 mcg/ml today, will give vanco 1500 mg IVPB x1 today. Due to elevated srcr, will continue to dose by random level. Next random ordered with am labs tomorrow. Will check tomorrow and dose as appropriate. Will follow Addendum: 12/18/18 at 1010 by EBONY SANDERS ht 175 cm wt 102.9 kg
--- NOTE | 2018-12-18 10:50 | NUR ---
Nursing Note: Seen by Dr. Christianson. EKG results relayed. suggested neurology be contacted. New order for CT head.
--- NOTE | 2018-12-18 12:02 | NUR ---
Nursing Note: CT of head w/o out contrasted resulted and noted with extensive cerebral edema and acute ischemic changes.
--- NOTE | 2018-12-18 12:20 | NUR ---
Nursing Note: Troponin results critical and reported to Dr Christianson
--- NOTE | 2018-12-18 12:30 | NUR ---
Nursing Note: Code stroke documentation completed. Code stroke log done and placed in chart Swallow screen failed. NIHSS score 39
[2018-12-18 12:31] LABS: BASOPHILS % (AUTO) 0.1 % (0.0-2.0); HEMATOCRIT 29.5 % (36.7-47.1); HEMOGLOBIN 9.6 g/dL (12.5-16.3); LYMPHOCYTES # (AUTO) 1.5 K/uL (20.0-40.0); LYMPHOCYTES % (AUTO) 9.9 % (20.5-51.5); MEAN CORPUSCULAR HEMOGLOBIN 28.8 uug (23.8-33.4); MEAN CORPUSCULAR HGB CONC 33 g/dL (32.5-36.3); MEAN CORPUSCULAR VOLUME 88.8 fL (73.0-96.2); MONOCYTES # (AUTO) 0.8 K/uL (2.0-10.0); MONOCYTES % (AUTO) 5.4 % (0.0-11.0); NEUTROPHILS # (AUTO) 13.1 K/uL (1.8-8.9); NEUTROPHILS % (AUTO) 84.6 % (38.5-71.5); PLATELET COUNT (AUTO) 218 K/uL (152-348); RED BLOOD CELL COUNT(AUTO) 3.33 MIL/uL (4.06-5.63); WHITE BLOOD COUNT (AUTO) 15.5 K/uL (3.6-10.2)
[2018-12-18 12:38] LABS: CREATININE 1.5 mg/dL (0.6-1.3); POTASSIUM 3.5 mmol/L (3.5-5.1)
[2018-12-18] MEDS ORDERED: MANNITOL 25% 12.5 G/50 ML VIAL IV ONE (12:45)
--- NOTE | 2018-12-18 12:45 | NUR ---
Nursing Note" New order for Mannitol and Vimpat from Dr. Grimes
[2018-12-18] MEDS: IV D5/ 0.9% NACL 1,000 ML IV PRN (13:00)
[2018-12-18] MEDS: PIPERACILLIN/TAZOBACTAM/D5W 3.375 G in PREMIXED 1 EACH IV SCH ×2 (14:00→21:21)
[2018-12-18] MEDS ORDERED: PIPERACILLIN/TAZOBACTAM/D5W 2.25 G in PREMIXED 1 EACH IV SCH (14:00)
[2018-12-18] MEDS ORDERED: LACOSAMIDE 150 MG/15 ML UDC GT SCH (14:30)
[2018-12-18] MEDS ORDERED: LACOSAMIDE 100 MG/10 ML UDC XX SCH (14:44)
--- NOTE | 2018-12-18 17:00 | NUR ---
Nursing Note: Contacted [facility] medical group to obtain order for VTE PPX. Awaiting call back from .
--- NOTE | 2018-12-18 17:30 | NUR ---
Nursing Note: Second call to [facility] to contact MD superintendent institution for order for VTE prophylaxis
--- NOTE | 2018-12-18 18:01 | NUR ---
Nursing Note: Received return call from Dr. Caballero. Doctor does not wish to start patient on VTE prophylaxis medication.
--- NOTE | 2018-12-18 19:11 | NUR ---
Received pt on Costa ventilator with the following settings of AC-12, Vt-600, PEEP+5, FIO2-30%, orally intubated with 7.5 ETT~23cm at lip line. No s/s of respiratory distress noted. Airway care done, pt responded to physical stimuli. HME and Sx Oseguera changed. Resus. bag at bedside. ETT moved to the right. Vent and alarms checked and reset.
--- NOTE | 2018-12-18 19:40 | NUR ---
Received pt HOB elevated, non-verbal, unable to follow commands. Pupils sluggish. Cough reflex present, minimal gag reflex. Vent settings: AC 12, TV 600, PEEP 5, FiO2 30%. O2 sat at 99%. VSS, afebrile. IV intact and patent. Continuous IVF running. Gtube feedings tolerated running at 60cc/hr, no residual present. Assessment completed. Pt kept clean and dry at all times. Turned and reposition as needed. Aspiration and seizures precautions observed. Continue plan of care.
--- NOTE | 2018-12-18 20:20 | NUR ---
Dr. Grimes called in for update. Received new orders for Mannitol q4hr and for smaller dose Vimpat. stated no change on DDAVP order.
[2018-12-18] MEDS ORDERED: MANNITOL 25% 12.5 G/50 ML VIAL IV SCH (20:30)
[2018-12-18] MEDS: LACOSAMIDE 100 MG/10 ML UDC XX SCH (20:57)
[2018-12-18] MEDS ORDERED: LACOSAMIDE 50 MG TABLET GT SCH (21:00)
[2018-12-18] MEDS: MANNITOL 25% 12.5 G/50 ML VIAL IV SCH (21:17)
[2018-12-18] MEDS: GLUCERNA 1.2 1000ML LIQUID GT PRN ×2 (21:26→22:12)
[2018-12-19] VITALS (30 sets, daily range): BP systolic 116–177; BP diastolic 56–94
[2018-12-19] MEDS: MANNITOL 25% 12.5 G/50 ML VIAL IV SCH ×6 (01:25→22:08)
[2018-12-19] MEDS: IV D5/ 0.9% NACL 1,000 ML IV PRN ×3 (01:25→22:02)
[2018-12-19 05:18] LABS: CREATININE 1.2 mg/dL (0.6-1.3); MAGNESIUM 2.5 mg/dL (1.8-2.4); PHOSPHOROUS 2.4 mg/dL (2.5-4.9); POTASSIUM 3.5 mmol/L (3.5-5.1)
[2018-12-19 05:31] LABS: BASOPHILS % (AUTO) 0.2 % (0.0-2.0); HEMATOCRIT 27.4 % (36.7-47.1); HEMOGLOBIN 8.9 g/dL (12.5-16.3); LYMPHOCYTES # (AUTO) 1.9 K/uL (20.0-40.0); LYMPHOCYTES % (AUTO) 12.4 % (20.5-51.5); MEAN CORPUSCULAR HGB CONC 32 g/dL (32.5-36.3); MEAN CORPUSCULAR VOLUME 89.4 fL (73.0-96.2); MONOCYTES # (AUTO) 0.6 K/uL (2.0-10.0); MONOCYTES % (AUTO) 4.3 % (0.0-11.0); NEUTROPHILS # (AUTO) 12.6 K/uL (1.8-8.9); NEUTROPHILS % (AUTO) 83.1 % (38.5-71.5); PLATELET COUNT (AUTO) 226 K/uL (152-348); RED BLOOD CELL COUNT(AUTO) 3.07 MIL/uL (4.06-5.63); WHITE BLOOD COUNT (AUTO) 15.2 K/uL (3.6-10.2)
[2018-12-19] MEDS: HYDROCORTISONE SOD SUCCINATE 100 MG/2 ML VIAL IV SCH ×3 (05:38→21:43)
[2018-12-19] MEDS: PIPERACILLIN/TAZOBACTAM/D5W 3.375 G in PREMIXED 1 EACH IV SCH ×3 (05:38→21:44)
[2018-12-19] MEDS: BLOOD SUGAR DIAGNOSTIC 1 EACH STRIP VI SCH ×4 (05:39→23:33)
[2018-12-19] MEDS: INSULIN REGULAR, HUMAN 300 UNIT/3 ML VIAL SQ PRN ×3 (05:41→23:34)
[2018-12-19] MEDS: LEVOTHYROXINE SODIUM 150 MCG TABLET PO SCH (06:11)
--- NOTE | 2018-12-19 06:21 | NUR ---
No neuro changes noted this shift. Stable VS, afebrile. AM care and oral care done. Continues to tolerate OGtube feedings well. CVP ranging from 13 - 14 after Mannitol. Vent setting maintained. O2 sat up to 99%. Kept pt clean and dry. HOB elevated at all times, aspiration and seizure precautions observed. Close monitoring continued.
[2018-12-19 06:23] LABS: BAND % (MANUAL) 2 % (0-10); LYMPHOCYTES % (MANUAL) 18 % (20-40); MONOCYTES % (MANUAL) 4 % (2-10); NEUTROPHILS % (MANUAL) 76 % (42-75)
[2018-12-19 07:27] LABS: ABG BASE EXCESS -4.1 mmol/L; ABG HCO3 19.1 mmol/L; ABG PCO2 28.1 mmHg (35.0-45.0); ABG PO2 76.8 mmHg (75.0-100.0); ABG SITE RIGHT RADIAL; ABG TOTAL HEMOGLOBIN 8.8 G/dL (13.5-18.0); COHb 1.3 % (0.5-1.5); MetHb 0.4 % (0.0-1.5); O2Hb 92.7 % (94.0-97.0); VENT MODE VENT - A/C; VT, ABG 600 mL
--- NOTE | 2018-12-19 08:01 | NUR ---
Received pt on current vent settings. ABG done with result handed to Charu Bach RN. Oral care done with ET tube moved to mid right. Suctioned pt for small amount of thick whitish secretions using low negative pressure. Waiting for new orders.
--- NOTE | 2018-12-19 08:30 | NUR ---
Neurologist physicianPatricia in the unit to examine pt. orders received.
--- NOTE | 2018-12-19 08:39 | NUR ---
INFORMATION SENT: FACESHEET,PROGRESS NOTES 12/18,UR-12/18,24 HOURS REPORT INSURANCE NAME: [facility] FAX NUMBER: [phone] / [phone] FAX SENT
[2018-12-19] MEDS: PANTOPRAZOLE SODIUM 40 MG VIAL IV SCH (08:46)
[2018-12-19] MEDS: DESMOPRESSIN 0.1 MG TABLET NG SCH ×2 (08:47→20:50)
[2018-12-19] MEDS: LACOSAMIDE 100 MG/10 ML UDC XX SCH ×2 (08:59→20:50)
--- NOTE | 2018-12-19 10:00 | NUR ---
Pt's mother and sister at bedside, and as stated by them here to meet with neurologist as requested by Him yesterday". Case management informed and as I was informed neurologist denying that He requested to meet with pt's mother and sister today. Addendum: 12/19/18 at 1122 by RAF BASILIO RN A call from field education coordinator Ms. Valerie Sahni and I was informed that Dr. Jackson will meet with family within the next hour. Family informed.
--- NOTE | 2018-12-19 10:30 | NUR ---
pulmonary services, Dr. Devan Martin. in the unit to examine pt. full report given see order hx. AT this time also spoke with Pt's mother Maggy, and pt's sister Migdalia and updated them on pt's current condition. He also introduced the possible trach placements.
--- NOTE | 2018-12-19 11:05 | NUR ---
Pt's Syster Ms. Migdalia Driver on the cell phone with Mr. Sears manager rn case of Dr. Delgado and Dr. Dheeraj Brizuela at [facility] I was informed by Dheeraj to fax latest CT and EEG results to their office at . and also gave me His direct number . This information provided to Valerie Sahni who's handling pt's possible transfer to higher level of care.
--- NOTE | 2018-12-19 11:50 | NUR ---
A call from neurologist to inquire about osmolality results , He was informed of pending results since specimen is a send out.
[2018-12-19] MEDS: GLUCERNA 1.2 1000ML LIQUID GT PRN (12:05)
--- NOTE | 2018-12-19 12:15 | NUR ---
Attending physician Dr. Jackson in the unit to meet with pt's family who remains at bedside mother Maggy, and Migdalia pt's sister.
--- NOTE | 2018-12-19 14:13 | NUR ---
A call received from Dr. Carrion inquiring for stat serum osmolality drawn this morning. and a call to lab at this time and spoke with Melvin who was not able to provide me results stating she will follow up with seed laboratory assistantfunmi Gutierrez who later content coordinator me and told me that specimen got tile picker from [facility] at 1000.
[2018-12-19] MEDS ORDERED: NEUTRA PHOS PACKET GT ONE (15:15)
--- NOTE | 2018-12-19 15:23 | NUR ---
[address] Gomez to report results for serum osmolality no new orders received.
--- NOTE | 2018-12-19 16:20 | NUR ---
ID N.P. services Nedra Garner in to examine pt.
--- NOTE | 2018-12-19 19:50 | NUR ---
PT RECEIVED ORALLY INTUBATED WITH A 7.5 ETT, APPROXIMATELY 23 CM AT THE LIP. ETT IS PATENT AND SECURED VIA ANCHOR FAST. BUTT VENTILATOR SETTINGS ARE A/C 12, VT 600, PEEP +5, FIO2 30%. NO CHANGES MADE AT THIS TIME. PT APPEARS TO BE TOLERATING VENT AT THIS TIME. VENT ALARMS CHECKED, ARE ON AND AUDIBLE. HME CHANGED NEEDED. ORAL CARE DONE. SUCTIONED MODERATE AMOUNT OF SECRETIONS. BVM IS AT BEDSIDE. VENTILATOR IS PLUGGED INTO RED EMERGENCY OUTLET. WILL CONTINUE TO MONITOR.
--- NOTE | 2018-12-19 20:00 | NUR ---
Eyes closed, does not follow any commands. Decerebrate posturing with any stimulation. Pupils equal at 4 mm, sluggish. Positive cough and gag reflexes. Intubated on vent, has few spontaneous resp. Excellent sats on 30% FIO2. Monitor SB to SR with HR as low as 49. BP tends to rise above 160 systolic with stimulation but readily gets back to baseline at rest. OGT Glucerna 1.2 feedings at 65 ml/hr@goal rate, minimal residuals noted. Had very large stool incontinence, kept clean and dry. Generalized edema, all extremities offloaded/elevated on pillows at all times. Turned/positioned q 2hr; HOB up elevated, aspiration and seizure precautions maintained. Nursing comfort measures observed at all times. Please see CCU flowsheet for full assessment and clinical data.
--- NOTE | 2018-12-19 20:40 | NUR ---
Dr. Gomez here and spoke with sister at length. ordered another serum osmolality in AM.
[2018-12-20] VITALS (30 sets, daily range): BP systolic 111–161; BP diastolic 65–96
--- NOTE | 2018-12-20 00:01 | NUR ---
Noted more secretions tonight. Also noted to yawn at times. Close monitoring continues.
[2018-12-20] MEDS: MANNITOL 25% 12.5 G/50 ML VIAL IV SCH ×3 (02:04→09:34)
[2018-12-20 04:51] LABS: HEMATOCRIT 26.3 % (36.7-47.1); HEMOGLOBIN 8.5 g/dL (12.5-16.3); LYMPHOCYTES # (AUTO) 1.7 K/uL (20.0-40.0); LYMPHOCYTES % (AUTO) 11.7 % (20.5-51.5); MEAN CORPUSCULAR HEMOGLOBIN 28.7 uug (23.8-33.4); MEAN CORPUSCULAR HGB CONC 32 g/dL (32.5-36.3); MEAN CORPUSCULAR VOLUME 89.1 fL (73.0-96.2); MONOCYTES # (AUTO) 0.6 K/uL (2.0-10.0); MONOCYTES % (AUTO) 3.9 % (0.0-11.0); NEUTROPHILS # (AUTO) 12.1 K/uL (1.8-8.9); NEUTROPHILS % (AUTO) 84.4 % (38.5-71.5); PLATELET COUNT (AUTO) 222 K/uL (152-348); RED BLOOD CELL COUNT(AUTO) 2.96 MIL/uL (4.06-5.63); WHITE BLOOD COUNT (AUTO) 14.3 K/uL (3.6-10.2)
[2018-12-20 05:00] LABS: BILIRUBIN,TOTAL 0.4 mg/dL (0.2-1.0); MAGNESIUM 2.5 mg/dL (1.8-2.4); PHOSPHOROUS 2.7 mg/dL (2.5-4.9); POTASSIUM 3.1 mmol/L (3.5-5.1)
[2018-12-20] MEDS: PIPERACILLIN/TAZOBACTAM/D5W 3.375 G in PREMIXED 1 EACH IV SCH ×3 (05:16→21:44)
[2018-12-20] MEDS: HYDROCORTISONE SOD SUCCINATE 100 MG/2 ML VIAL IV SCH ×3 (05:16→21:42)
--- NOTE | 2018-12-20 06:00 | NUR ---
General condition unchanged. Gastric tube feeding residuals remain minimal; had three stools this shift. Kept clean, dry and comfortable at all times. Aspiration and seizure precautions maintained. No critical lab values this AM. Please see CCU flowsheet for trends and clinical data.
[2018-12-20] MEDS: BLOOD SUGAR DIAGNOSTIC 1 EACH STRIP VI SCH ×4 (06:19→23:18)
[2018-12-20] MEDS: LEVOTHYROXINE SODIUM 150 MCG TABLET PO SCH (06:20)
[2018-12-20] MEDS: IV D5/ 0.9% NACL 1,000 ML IV PRN (07:11)
--- NOTE | 2018-12-20 07:30 | NUR ---
PT RECEIVED ORALLY INTUBATED WITH A SIZE 7.5 ETT SECURED WITH ANCHOR-FAST APPROX. 23CM AT THE LIP. PT IS ON A BUTT VENT ON SETTINGS OF A/C 12, VT 600, PEEP +5, AND 30% FIO2. VENT PARAMETERS AND ALARMS CHECKED, ALARMS ARE AUDIBLE. PT IS TOLERATING VENT SETTINGS WELL, NO RESP. DISTRESS NOTED AT THIS TIME. AMBU-BAG AT BEDSIDE. VENT PLUGGED INTO RED OUTLET. SUCTION PRN. WILL CONTINUE TO MONITOR.
--- NOTE | 2018-12-20 08:09 | NUR ---
At this time pt. with a large BM while morning care been provided, patient went bradycardic sustained for more than 4 seconds and was pulseless, cyanotic. Code blue called. But patient then quickly regain cardiac rhythm on his own with no need of medications administration. pulse present heart rate in the low 40-quickly to 60-70. Addendum: 12/20/18 at 0845 by RAF BASILIO RN Saturation also improved quickly.
[2018-12-20] MEDS: PANTOPRAZOLE SODIUM 40 MG VIAL IV SCH (08:53)
[2018-12-20] MEDS: LACOSAMIDE 100 MG/10 ML UDC XX SCH ×2 (08:53→21:42)
[2018-12-20] MEDS: DESMOPRESSIN 0.1 MG TABLET NG SCH ×2 (08:53→22:32)
--- NOTE | 2018-12-20 09:10 | NUR ---
INFORMATION SENT: FACESHEET,PROGRESS NOTES 12/19,IMAGING,24 HOURS REPORT,UR-12/19 FAXED TO:HOSEA JOHNSON [phone] FAX SENT
--- NOTE | 2018-12-20 10:00 | NUR ---
Nephrology services, in the unit report given, see order hx.
[2018-12-20 10:26] LABS: ABG BASE EXCESS -1.6 mmol/L; ABG HCO3 21.8 mmol/L; ABG PCO2 31.9 mmHg (35.0-45.0); ABG PH 7.453 (7.350-7.450); ABG PO2 101.3 mmHg (75.0-100.0); ABG SITE LEFT BRACHIAL; ABG TOTAL HEMOGLOBIN 9.6 G/dL (13.5-18.0); COHb 1.3 % (0.5-1.5); MetHb 0.4 % (0.0-1.5); O2Hb 96.4 % (94.0-97.0); VENT MODE VENT - A/C; VT, ABG 600 mL
--- NOTE | 2018-12-20 10:55 | NUR ---
A call from Dr. Gomez inquiring for serum osmolarity results order this morning. EMR lab check no results posted, and Dr. schaffer orders for Stat serum osmolality received.
[2018-12-20] MEDS: GLUCERNA 1.2 1000ML LIQUID GT PRN (11:06)
--- NOTE | 2018-12-20 12:04 | NUR ---
A call from lab and report of 319 serum osmolarity received. Tech also reported SO of 316 from morning draw.
[2018-12-20] MEDS: POTASSIUM CHLORIDE 20 MEQ in IV D5/ 0.9% NACL 1,000 ML IV PRN ×2 (12:25→23:43)
--- NOTE | 2018-12-20 12:30 | NUR ---
A call to Dr. Gomez to report Serum osmolarity of 319 new orders received and implemented.
[2018-12-20] MEDS: INSULIN REGULAR, HUMAN 300 UNIT/3 ML VIAL SQ PRN (12:49)
--- NOTE | 2018-12-20 13:30 | NUR ---
Pulmonary services, Dr. Hartman in the unit to examine patient, full report given see orders hx.
[2018-12-20] MEDS ORDERED: MANNITOL 25% 12.5 G/50 ML VIAL IV SCH ×2 (14:00→14:35)
[2018-12-20] MEDS ORDERED: MANNITOL 25% 12.5 G/50 ML VIAL IV ONE (18:00)
--- NOTE | 2018-12-20 19:00 | NUR ---
received patient in bed during report at the bedside. Patient is in stable condition and vital signs are within normal limits. patient is on a mechanical vent without any signs/symptoms of respiratory distress. Patients central lines are intact and patent.
--- NOTE | 2018-12-20 19:28 | NUR ---
patient had 3rd episode of watery stool. Order for microbiology of c.diff being sent to lab.
--- NOTE | 2018-12-20 19:30 | NUR ---
Dr. Jackson came in to see patient and placed new orders. Dr. Jackson spoke to family in waiting area.
--- NOTE | 2018-12-20 19:43 | NUR ---
Pt rec'd on Costa settings AC 12, VT 600, PEEP +5 and FIO2-30%. No resp. distress noted. 7.5 ETT is patent and secure at approx. 23cm now placed on the right side of the pt's mouth. BVM at bedside. Oral care done. Pt to be monitored throughout the shift and PRN SX. Costa alarm parameters have been checked and remain audible.
[2018-12-20] MEDS ORDERED: POTASSIUM CHLORIDE 20 MEQ POWDER PACKET GT ONE (19:45)
--- NOTE | 2018-12-20 20:00 | NUR ---
patient had a loose and watery bowel movement. patient was cleaned and turned. Inserted flexi seal rectal tubing as order by MD. Right femoral central line was removed aseptically and pressure was applied. Will monitor for bleeding. patient is stable without any s/s of distress.
[2018-12-20] MEDS ORDERED: DESMOPRESSIN 0.1 MG TABLET ONE (21:53)
[2018-12-21] VITALS (23 sets, daily range): BP systolic 103–131; BP diastolic 63–85
[2018-12-21 05:11] LABS: BASOPHILS % (AUTO) 0.1 % (0.0-2.0); HEMATOCRIT 24.6 % (36.7-47.1); HEMOGLOBIN 7.9 g/dL (12.5-16.3); LYMPHOCYTES # (AUTO) 1.6 K/uL (20.0-40.0); LYMPHOCYTES % (AUTO) 12.1 % (20.5-51.5); MEAN CORPUSCULAR HEMOGLOBIN 29.2 uug (23.8-33.4); MEAN CORPUSCULAR HGB CONC 32 g/dL (32.5-36.3); MEAN CORPUSCULAR VOLUME 91.7 fL (73.0-96.2); MONOCYTES # (AUTO) 0.5 K/uL (2.0-10.0); MONOCYTES % (AUTO) 3.7 % (0.0-11.0); NEUTROPHILS # (AUTO) 11.4 K/uL (1.8-8.9); NEUTROPHILS % (AUTO) 84.1 % (38.5-71.5); PLATELET COUNT (AUTO) 227 K/uL (152-348); RED BLOOD CELL COUNT(AUTO) 2.69 MIL/uL (4.06-5.63); WHITE BLOOD COUNT (AUTO) 13.6 K/uL (3.6-10.2)
[2018-12-21] MEDS: PIPERACILLIN/TAZOBACTAM/D5W 3.375 G in PREMIXED 1 EACH IV SCH ×3 (05:14→21:25)
[2018-12-21] MEDS: HYDROCORTISONE SOD SUCCINATE 100 MG/2 ML VIAL IV SCH ×3 (05:14→21:24)
[2018-12-21] MEDS: BLOOD SUGAR DIAGNOSTIC 1 EACH STRIP VI SCH ×3 (05:47→21:42)
[2018-12-21] MEDS: INSULIN REGULAR, HUMAN 300 UNIT/3 ML VIAL SQ PRN ×2 (05:49→21:44)
[2018-12-21 05:50] LABS: LYMPHOCYTES % (MANUAL) 14 % (20-40); MONOCYTES % (MANUAL) 2 % (2-10); NEUTROPHILS % (MANUAL) 84 % (42-75)
[2018-12-21 06:19] LABS: WHITE BLOOD COUNT (AUTO) 17.5 K/UL (4.0-11.2)
[2018-12-21 06:20] LABS: HEMATOCRIT 28.6 % (40-50); HEMOGLOBIN 9.1 G/DL (14.0-18.0); MEAN CORPUSCULAR HEMOGLOBIN 28.8 UUG (27.0-31.0); MEAN CORPUSCULAR HGB CONC 32 g/dL (32.0-37.0); MEAN CORPUSCULAR VOLUME 90.1 FL (82.0-92.0); PLATELET COUNT (AUTO) 280 K/UL (150-450); RED BLOOD CELL COUNT(AUTO) 3.18 MIL/UL (4.7-6.1)
[2018-12-21 06:21] LABS: BASOPHILS % (AUTO) 0.4 % (0.0-2.0); EOSINOPHILS % (AUTO) 0.1 % (0.0-7.0); LYMPHOCYTES % (AUTO) 16.6 % (20.5-51.5); MONOCYTES % (AUTO) 3.7 % (0.0-11.0); NEUTROPHILS % (AUTO) 79.2 % (38.5-71.5)
[2018-12-21 06:44] LABS: BILIRUBIN,TOTAL 0.3 mg/dL (0.2-1.0); CREATININE 1.1 mg/dL (0.6-1.3); MAGNESIUM 2.5 mg/dL (1.8-2.4); PHOSPHOROUS 2.6 mg/dL (2.5-4.9); POTASSIUM 4.1 mmol/L (3.5-5.1); TOTAL PROTEIN, SERUM 6.2 g/dL (6.4-8.2)
--- NOTE | 2018-12-21 07:00 | NUR ---
Received critical lab value of sodium at 154. Called Lexie Mayo[facility]. waiting for call and orders.
--- NOTE | 2018-12-21 07:15 | NUR ---
RECEIVED PT ON CONTINUOUS VENT AC 12 VT 600 PEEP 5 FIO2 30%. ETT 7.5 SECURED AT 23 CM LIP LINE VIA ANCHOR FAST. MOVED ETT TO RIGHT SIDE. AMBU BAG AT BEDSIDE. SUCTION PRN. VENT CHECKED, ALARMS WORKING WELL AND AUDIBLE. NO SIGNS OF RESPIRATORY DISTRESS NOTED AT THIS TIME. WILL CONTINUE TO MONITOR.
[2018-12-21] MEDS: LEVOTHYROXINE SODIUM 150 MCG TABLET PO SCH (07:44)
[2018-12-21 08:07] LABS: ABG BASE EXCESS -0.3 mmol/L; ABG HCO3 23.1 mmol/L; ABG PCO2 33.2 mmHg (35.0-45.0); ABG PH 7.461 (7.350-7.450); ABG PO2 95.5 mmHg (75.0-100.0); ABG SITE RIGHT RADIAL; ABG TOTAL HEMOGLOBIN 9.5 G/dL (13.5-18.0); COHb 1.5 % (0.5-1.5); MetHb 0.2 % (0.0-1.5); VENT MODE VENT - A/C; VT, ABG 600 mL
[2018-12-21] MEDS: LACOSAMIDE 100 MG/10 ML UDC XX SCH ×2 (08:34→21:24)
[2018-12-21] MEDS: PANTOPRAZOLE SODIUM 40 MG VIAL IV SCH (08:35)
[2018-12-21] MEDS: DESMOPRESSIN 0.1 MG TABLET NG SCH ×2 (08:55→21:24)
[2018-12-21] MEDS: POTASSIUM CHLORIDE 20 MEQ in IV D5 1/2 NS 1000 ML 1,000 ML IV PRN ×2 (09:31→21:56)
[2018-12-21] MEDS: GLUCERNA 1.2 1000ML LIQUID GT PRN (09:32)
--- NOTE | 2018-12-21 09:52 | NUR ---
INFORMATION SENT: FACESHEET,24 HOURS REPORT,IMAGING,PROGRESS NOTES 12/20,UR-12/20 [facility] FAX NUMBER: [phone] / [phone] FAX SENT
[2018-12-21] MEDS ORDERED: BUMETANIDE 1 MG/4 ML VIAL IV ONE (10:30)
[2018-12-21] MEDS ORDERED: NORMAL SALINE FLUSH 10 ML DISP.SYRIN ONE (17:04)
[2018-12-21] MEDS ORDERED: IV NORMAL SALINE 250 ML IV ONE (17:04)
[2018-12-21] MEDS ORDERED: SWABABLE VALVE TRANSFER SET EA MC ONE (17:04)
[2018-12-21] MEDS ORDERED: IOHEXOL 300MG/ML 100 ML INFUS..BTL ONE (17:04)
--- NOTE | 2018-12-21 17:45 | NUR ---
pt transported to ct scan and back to ccu without incident noted. vent plugged to red outlet o2 connected. vent checked, alarms working well.
--- NOTE | 2018-12-21 19:30 | NUR ---
rounds made patient in bed orally intubated and on ac settings ac12/600/30% /5 peep . tolerating vent settings,breathing and unlabored . doesn't open eyes doesn't follow commands .no s/s/ of pain .tf in progress and tolerating hob up aspiration precaution observed .continue to monitor v/s and levels of comfort.
--- NOTE | 2018-12-21 20:15 | NUR ---
fax to SOFIA MALLORY ([facility]) [phone] patient CT RESULTS .
--- NOTE | 2018-12-21 20:15 | NUR ---
patient mother at bedside with some family for prayers .
--- NOTE | 2018-12-21 20:30 | NUR ---
SOFIA MALLORY FROM [facility] ,suggesting CT angiogram ,advised to call us back her if what the decision ,fax CT W/ AND W/O CONTRAST TO MOHAMUD BLACK .ADVISED TO CALL US BACK HERE FOR COMMUNICATION .
--- NOTE | 2018-12-21 21:30 | NUR ---
updated patient and patient sister with patient condition v/s medication and vent .
--- NOTE | 2018-12-21 21:50 | NUR ---
another set of family/ friends at bedside for prayers .
--- NOTE | 2018-12-21 22:45 | NUR ---
[facility] FINANCIAL DEPARTMENT TEL #[phone].ASKING IF PATIENT IS FINANCIALLY CLEARED BOTH HEALTH PLAN AND MEDICAL GROUP AND THAT AUTHORIZATION IS NEEDED. INFORMED NURSES DONT DO INSURANCE/ OR BENEFITS AND SHE SHOULD TALK TO OUR METAL CHECKER TESS .NURSES DONT DO AUTHORIZATION . CALLED NURSING INSTRUCTOR OF EDUCATION [place] AND MADE AWARE PER NURSING INSTRUCTOR OF EDUCATION SHE WILL CALL [facility] .
[2018-12-22] VITALS (23 sets, daily range): BP systolic 104–136; BP diastolic 54–82
--- NOTE | 2018-12-22 | NUR ---
f/s done and follow insulin sliding scale . suction via mouth and via ett , turned and reposition patient. hob up aspiration precaution observed ,
[2018-12-22] MEDS: BLOOD SUGAR DIAGNOSTIC 1 EACH STRIP VI SCH ×5 (00:56→23:35)
[2018-12-22] MEDS: INSULIN REGULAR, HUMAN 300 UNIT/3 ML VIAL SQ PRN (00:58)
--- NOTE | 2018-12-22 01:54 | NUR ---
PT ON CONT HT 50 VENT WITH 7.5 ET/TUBE IN PLACE, 23CM LIP LINE ANCHOR FAST RE POSITION Q2, WITH SAME CURRENT VENT SETTINGS, A.C 12, VT 600ML ,PEEP5, 30%, PT DOES ASSIST AT TIMES, GOOD COUGH EFFORT, SUCTIONED LIGHT PALE YELL TINGE SECRETIONS, CHANGE HME ALL VENT ALARMS GOOD, NO VENT CHANGES MADE AT THIS TIME, AMBU BAG AT BEDSIDE. Sarah MICHAELP Addendum: 12/22/18 at 0157 by JOSÉ MIGUEL MELGAR RT Amended: Links added.
[2018-12-22 05:30] LABS: BASOPHILS % (AUTO) 0.1 % (0.0-2.0); HEMATOCRIT 29.1 % (36.7-47.1); HEMOGLOBIN 9.4 g/dL (12.5-16.3); LYMPHOCYTES % (AUTO) 17.1 % (20.5-51.5); MEAN CORPUSCULAR HEMOGLOBIN 29.2 uug (23.8-33.4); MEAN CORPUSCULAR HGB CONC 32 g/dL (32.5-36.3); MONOCYTES # (AUTO) 0.9 K/uL (2.0-10.0); NEUTROPHILS # (AUTO) 13.8 K/uL (1.8-8.9); NEUTROPHILS % (AUTO) 77.8 % (38.5-71.5); PLATELET COUNT (AUTO) 321 K/uL (152-348); WHITE BLOOD COUNT (AUTO) 17.8 K/uL (3.6-10.2)
[2018-12-22 05:33] LABS: CREATININE 1.2 mg/dL (0.6-1.3); MAGNESIUM 2.3 mg/dL (1.8-2.4); PHOSPHOROUS 2.5 mg/dL (2.5-4.9); POTASSIUM 3.4 mmol/L (3.5-5.1)
[2018-12-22] MEDS: HYDROCORTISONE SOD SUCCINATE 100 MG/2 ML VIAL IV SCH ×3 (05:55→21:11)
[2018-12-22] MEDS: PIPERACILLIN/TAZOBACTAM/D5W 3.375 G in PREMIXED 1 EACH IV SCH ×3 (05:56→21:12)
--- NOTE | 2018-12-22 06:00 | NUR ---
rectal temp 100.2 bath with ice water and cold compressed applied to bilateral arm pit and bilateral groin .
[2018-12-22] MEDS: LEVOTHYROXINE SODIUM 150 MCG TABLET PO SCH (06:02)
[2018-12-22 06:09] LABS: LYMPHOCYTES % (MANUAL) 18 % (20-40); MONOCYTES % (MANUAL) 4 % (2-10); NEUTROPHILS % (MANUAL) 78 % (42-75)
--- NOTE | 2018-12-22 07:20 | NUR ---
PT REC'D ORALLY INTUBATED 7.5ETT ON CONT MECH VENT AC 12 VT 600 PEEP+5 FIO2 30%. ETT SECURED WITH TUBE FRAGA AT APPROX 23 LIP-LINE. AMBU BAG AT BEDSIDE. SUCTION PRN. VENT CHECKED, ALARMS WORKING WELL AND AUDIBLE. NO DISTRESS NOTED AT THIS TIME. WILL CONTINUE TO MONITOR.
--- NOTE | 2018-12-22 07:30 | NUR ---
RECIEVED PT LYING IN BED WITH HOB UP AT 35DEGREES UP. COLOR IS GOOD AND SKIN IS DRY AND WARM TO TOUCH. PT OPENS EYES SPONTANEOUSLY BUT WITHOUT FOCUS.
--- NOTE | 2018-12-22 07:32 | NUR ---
INFORMATION SENT: FACESHEET,PROGRESS NOTES 12/21,UR-12/21,IMAGING,24 HOURS REPORT INSURANCE NAME[facility] FAX NUMBER: [phone] / [phone] FAX SENT
[2018-12-22 07:47] LABS: ABG HCO3 23.5 mmol/L; ABG PH 7.512 (7.350-7.450); ABG PO2 102.4 mmHg (75.0-100.0); ABG SITE RIGHT RADIAL; ABG TOTAL HEMOGLOBIN 9.8 G/dL (13.5-18.0); COHb 1.2 % (0.5-1.5); MetHb 0.1 % (0.0-1.5); O2Hb 97.1 % (94.0-97.0); VENT MODE VENT - A/C 12; VT, ABG 600 mL
--- NOTE | 2018-12-22 08:00 | NUR ---
ALL EXTREMETIES ARE FLACCID. HRIS PERSISTENTLY SINUS BRADYCARDIA IN THE LOW 30'S AND HIGH 50'S N/MIN. BP IS MAINTAINED GOOD. HAS GENERALIZED NON-PITTTING EDEMA AND PITTING EDEMA +1 ON BOTH FEET. PICCLINE INTACT ON THERUA. MAIN IVF IS RUNNING AT 100ML/HR.
--- NOTE | 2018-12-22 08:10 | NUR ---
TEMP IS 99.6F VIA RECTAL PROBE. PT ON HYPOTHERMIA BLANKET. MONITOR TEMPERATURE. SKIN IS GOOD AND MAINTAINED BY FREDQUENT TURNING AND PT ON FIRST STEP MATTRESS.
--- NOTE | 2018-12-22 08:15 | NUR ---
PT IS INTUBATED, ETT IS INTACT AND IN PLACE. PT'S LOWER TOOTH APPEARS LOOSENED SECONDARY TO BITING. RT MOVED THE SITE ON THE LEFT SIDE. CONNECTED TO VENTILATOR WITH A SETTING OF AC-12, VT-600, FIO2-30% AND A PEEP-5. SATURATION IS 95-100%. SUCTION VERY SMALL AMOUNT OF WHITISH PHLEGM.
[2018-12-22] MEDS: POTASSIUM CHLORIDE 10 MEQ TAB.PRT.SR PO ONE ×2 (08:45→09:46)
--- NOTE | 2018-12-22 08:45 | NUR ---
SEEN AND EXAMINED BY DR CAI, NO NEW ORDERS.
[2018-12-22] MEDS: PANTOPRAZOLE SODIUM 40 MG VIAL IV SCH (08:58)
[2018-12-22] MEDS: LACOSAMIDE 100 MG/10 ML UDC XX SCH ×2 (08:58→20:55)
[2018-12-22] MEDS: ACIDOPHILUS/BULGARICUS CHEW TAB NG SCH ×2 (08:59→20:54)
[2018-12-22] MEDS: NUTRISOURCE FIBER 4 GM PACKET GT SCH (09:00)
--- NOTE | 2018-12-22 09:00 | NUR ---
MOTHER AT THE BEDSIDE.
[2018-12-22] MEDS ORDERED: POTASSIUM CHLORIDE 20 MEQ POWDER PACKET GT ONE (10:00)
--- NOTE | 2018-12-22 10:00 | NUR ---
HAS AN ORAL GASTRIC TUBE, PATENT AND IN PLACE. NO RESIDUALS NOTED. STARTED ON TUBE FEEDING GLUCERNA 1.2 AT 65ML/HR ORDERED. IVF IS DECREASED DOWN TO 40ML/HR TO MAKE A TOTALOF 100ML BETWEEN IVF AND FEEDING INTAKE. TOLERATING WELL. RECTAL TUBE PRESENT BECAUSE OF STOOL LIQUID INCONTINENCE. ABDOMEN IS DISTENDED AND SOFT TO TOUCH. GOOD BS NOTED.
--- NOTE | 2018-12-22 10:30 | NUR ---
CONFER WITH BUSINESS UNIT DIRECTOR REGARDING PT'S STATUS AND THE PLAN TRANSFER TO [facility]. STILL AWAITING.
[2018-12-22] MEDS: POTASSIUM CHLORIDE 20 MEQ in IV D5 1/2 NS 1000 ML 1,000 ML IV PRN (11:40)
[2018-12-22] MEDS: GLUCERNA 1.2 1000ML LIQUID GT PRN (11:41)
--- NOTE | 2018-12-22 12:00 | NUR ---
SEEN AND EXAMINED BY DR HOUSE WITH NEW ORDERS TO DECREASE THE TV DOWN TO 500, ND CHANGED THE MAIN IVF TO D5W. NOTIFIED RT OF THE NEW ORDER.
--- NOTE | 2018-12-22 12:30 | NUR ---
TV CHANGED TO 500 BY RT ORDERED. O2 SAT MAINTAINED IN THE 100%.
--- NOTE | 2018-12-22 12:35 | NUR ---
PER MD ORDER VT DECREASED TO 500ML.
--- NOTE | 2018-12-22 13:40 | NUR ---
SEEN AND EXAMINED BY DR SEN, NO NEW ORDERS MADE. AWARE OF THE PERSISTENT SINUS BRADYCARDIA BETWEEN 30-51B/MIN.
--- NOTE | 2018-12-22 14:00 | NUR ---
SEEN AND EXAMINED BY DR HATHAWAY AND DR QUICK WITH NEW ORDERS. PT IS KEPT NPO AT THIS TIME, ANTICIPATING TO HAVE THE TRACHEOSTOMY INSERTION AND PEG PLACEMENT TODAY ASORDERED.
[2018-12-22] MEDS: POTASSIUM CHLORIDE 20 MEQ in IV D5W 1000ML 1,000 ML IV PRN (14:10)
[2018-12-22 14:21] LABS: *BILIRUBIN,URIN NEGATIVE (NEGATIVE); *BLOOD, URINE 1+ (NEGATIVE); *CLARITY,URINE CLEAR (CLEAR); *COLOR,URINE LIGHT YELLOW (YELLOW); *KETONES,URINE NEGATIVE (NEGATIVE); *UROBILINOGEN,URINE 0.2 E.U./dl (NORMAL); LEUKOCYTE ESTERASE ,URINE NEGATIVE (NEGATIVE); NITRITE, URINE NEGATIVE (NEGATIVE); UGLUCOSE NEGATIVE (NEGATIVE)
[2018-12-22 14:27] LABS: BACTERIA,URINE NONE SEEN /HPF (NONE SEEN); RBC,URINE 0-3 /HPF (0-3)
[2018-12-22 14:28] LABS: SQUAMOUS EPITHELIAL CELL,UR FEW /HPF (NONE SEEN)
[2018-12-22] MEDS: DESMOPRESSIN 0.1 MG TABLET NG SCH ×2 (14:50→21:11)
--- NOTE | 2018-12-22 15:00 | NUR ---
URINE FOR UA & CS SENT TO LAB ORDERED.
--- NOTE | 2018-12-22 18:00 | NUR ---
PM CARE AND ORAL CARE RENDERED. HR IS STILL PERSISTENTLY BRADYCARDIC IN THE LOW 40'S. DR SEN IS AWARE OF IT. NO ORDERS MADE. GOOD URINE OUTPUT. LATEST TEMP 98.3F
--- NOTE | 2018-12-22 19:45 | NUR ---
Received pt HOB elevated, eyes reactive but sluggish, unable to follow simple commands. Pt withdraws to pain, all extremities flaccid. Vent settings: AC 12, TV 500, PEEP 5, FiO2 30%. O2 sats up to 99%. Tele noted to be SB with HR ranging from 30s - 40s. Pt NPO status pending trach and PEG as directed by MD PATRICIA. IV lines intact and patent, continuous IVF running. Aspiration and seizure precautions observed. Turned and reposition. Continue with plan of care. Addendum: 12/22/18 at 2203 by RIDDHI WORLEY RN Amended: Links added.
--- NOTE | 2018-12-22 20:30 | NUR ---
Family members at bedside.
[2018-12-22] MEDS ORDERED: MAGNESIUM HYDROXIDE 30 ML LIQUID UDC PO SCH (21:00)
[2018-12-23] VITALS (30 sets, daily range): BP systolic 110–171; BP diastolic 54–120
--- NOTE | 2018-12-23 01:51 | NUR ---
RECEIVED PATIENT ORALLY INTUBATED WITH A SIZE 7.5 ET TUBE. PATIENT IS ON A BUTT VENTILATOR WITH THE FOLLOWING SETTINGS THAT ARE CHARTED ON THE MECHANICAL VENTILATOR NOTES. ET TUBE IS SECURED WITH THE ANCHOR FAST AT APPROX 23 AT THE LIP LINE. AMBU BAG IS BY BEDSIDE. TRANSPORT PT FROM CCU 4 TO CCU 1 VIA VENTILATOR, NO COMPLICATIONS AND NO INCIDENT DURING TRANSPORT. SUCTIONED SMALL WHITE AND YELLOW SECRETIONS. VENTILATOR ALARMS CHECKED AND THEY ARE ON AND AUDIBLE. VENTILATOR IS PLUGGED IN THE RED OUTLET. PATIENT IS TOLERATING CURRENT VENTILATOR SETTINGS WELL AT THIS TIME WITH NO SOB NOTED AT THIS TIME. WILL CONTINUE TO MONITOR PATIENT.
[2018-12-23] MEDS: DESMOPRESSIN 0.1 MG TABLET NG SCH (05:15)
[2018-12-23] MEDS: HYDROCORTISONE SOD SUCCINATE 100 MG/2 ML VIAL IV SCH ×3 (05:15→21:01)
[2018-12-23 05:24] LABS: BASOPHILS % (AUTO) 0.8 % (0.0-2.0); EOSINOPHILS % (AUTO) 0.5 % (0.0-7.0); HEMATOCRIT 31.7 % (36.7-47.1); HEMOGLOBIN 10.2 g/dL (12.5-16.3); LYMPHOCYTES % (AUTO) 17.8 % (20.5-51.5); MEAN CORPUSCULAR HEMOGLOBIN 29.4 uug (23.8-33.4); MEAN CORPUSCULAR HGB CONC 32 g/dL (32.5-36.3); MEAN CORPUSCULAR VOLUME 91.9 fL (73.0-96.2); MONOCYTES % (AUTO) 4.6 % (0.0-11.0); NEUTROPHILS % (AUTO) 76.3 % (38.5-71.5); PLATELET COUNT (AUTO) 341 K/uL (152-348); RED BLOOD CELL COUNT(AUTO) 3.45 MIL/uL (4.06-5.63); WHITE BLOOD COUNT (AUTO) 20.3 K/uL (3.6-10.2)
[2018-12-23 05:25] LABS: BASOPHILS # (AUTO) 0.2 K/uL (0.0-8.0); EOSINOPHILS # (AUTO) 0.1 K/uL (0.0-0.7); LYMPHOCYTES # (AUTO) 3.6 K/uL (20.0-40.0); MONOCYTES # (AUTO) 0.9 K/uL (2.0-10.0); NEUTROPHILS # (AUTO) 15.5 K/uL (1.8-8.9)
[2018-12-23 05:38] LABS: CREATININE 1.1 mg/dL (0.6-1.3); MAGNESIUM 2.6 mg/dL (1.8-2.4); PHOSPHOROUS 4.3 mg/dL (2.5-4.9); POTASSIUM 3.7 mmol/L (3.5-5.1)
--- NOTE | 2018-12-23 05:45 | NUR ---
AM care rendered, oral care done. Pt kept clean and dry, turned and repositioned. No significant changes during shift. Vent settings maintained. VSS, afebrile. HOB elevated at all times. Aspiration and seizure precautions observed. Continue to monitor.
[2018-12-23] MEDS: BLOOD SUGAR DIAGNOSTIC 1 EACH STRIP VI SCH ×3 (06:15→17:59)
[2018-12-23] MEDS: PIPERACILLIN/TAZOBACTAM/D5W 3.375 G in PREMIXED 1 EACH IV SCH (06:15)
[2018-12-23] MEDS: LEVOTHYROXINE SODIUM 150 MCG TABLET NG SCH (06:16)
[2018-12-23 06:38] LABS: *OCCULT BLOOD STOOL POSITIVE (NEGATIVE)
--- NOTE | 2018-12-23 07:30 | NUR ---
Pt in bed, laying semi-Santana's, unable to communicate.. Orally intubated, in place and secure with anchor fast.. Mechanical ventilation with vent: Costa, settings A/C 12, Vt 500, PEEP +5, FiO2 30%, tolerating well at this time.. Vent alarms on / audible and functioning normally at this time.. Will continue to monitor..
--- NOTE | 2018-12-23 07:30 | NUR ---
RECIEVED PT WITH HOB UP 30DEGREES, COLOR IS GOOD AND SKIN IS WARM TO DRY TO TOUCH. HR IS PERSISTENTLY SINUS BRADICARDIC WITH OCCASSIONAL JUNCTIONAL BRADYCARDIA IN THE LOW 35-48 B/MIN. HR GOES UP TO 60-85B/MIN WITH ORAL OR ETT SUCTIONING. OPENS EYES WITH SLIGHT PAIN, AND PERRLA IS BRISK AT 3MM NOTED. GENERALIZED EDEMA STILL PRESENT AND IVF IN PROGRESS AT 40ML/HR INFUSING WELL.
--- NOTE | 2018-12-23 08:00 | NUR ---
ABG DONE AND RESULTED. ETT INTACT AND IN PLACE. VENT SETTINGOF AC-12, VT-500, FIO2-30% AND PEEP OF 5. O2 SAT IS 98-100%.
[2018-12-23] MEDS: LACOSAMIDE 100 MG/10 ML UDC XX SCH ×2 (08:53→20:56)
[2018-12-23] MEDS: ACIDOPHILUS/BULGARICUS CHEW TAB NG SCH ×2 (08:53→20:56)
[2018-12-23] MEDS: PANTOPRAZOLE SODIUM 40 MG VIAL IV SCH (08:54)
[2018-12-23] MEDS: NUTRISOURCE FIBER 4 GM PACKET GT SCH (08:55)
[2018-12-23 08:59] LABS: ABG BASE EXCESS 4.5 mmol/L; ABG PCO2 37.4 mmHg (35.0-45.0); ABG PH 7.492 (7.350-7.450); ABG SITE RIGHT RADIAL; ABG TOTAL HEMOGLOBIN 10.4 G/dL (13.5-18.0); COHb 1.1 % (0.5-1.5); O2Hb 95.8 % (94.0-97.0); VENT MODE VENT - A/C; VT, ABG 500 mL
--- NOTE | 2018-12-23 11:00 | NUR ---
MOTHER AND SISTER AT THE BEDSIDE. PT OPENED HIS EYES AND APPEARED TO FOCUS HIS EYES WHILE HIS MOTHER IS TALKING TO HIM.
[2018-12-23] MEDS ORDERED: VANCOMYCIN IV 1 G in PREMIXED 0 EACH IV SCH (11:30)
--- NOTE | 2018-12-23 11:30 | NUR ---
SEEN AND EXAMINED BY DR HOUSE WITH NEW ORDERS.
[2018-12-23] MEDS ORDERED: BISACODYL 10 MG SUPP.RECT RC PRN (12:00)
[2018-12-23] MEDS ORDERED: DESMOPRESSIN 4 MCG/1 ML VIAL SUBCUT SCH (12:00)
[2018-12-23] MEDS: INSULIN REGULAR, HUMAN 300 UNIT/3 ML VIAL SQ PRN ×2 (12:32→18:02)
--- NOTE | 2018-12-23 12:45 | NUR ---
Clinical pharmacy note-Vancomycin dosing per pharmacy Subjective: To restart Vancomycin dosing for pneumonia(on Zosyn also) Objective: BUN 21 Scr 1.1 WBC 20.3 Temp 98.8 Ht 175.26cm Wt 103.419kg Assessment/Plan: Since renal function is stable, will start Vancomycin 1750mg IV every 11hrs (first dose today at 1330) and draw trough by 4th dose-not ordered yet-for expected trough around 16 for pneumonia. Will monitor renal function closely to adjust the dose if needed. Will follow daily.
--- NOTE | 2018-12-23 13:30 | NUR ---
VANCOMYCIN ANTIBIOTIC ORDERED BY DR HOUSE, GIVEN VIA PICC LINE.
[2018-12-23] MEDS: VANCOMYCIN IV 1,750 MG in IV DEXTROSE 5% 500 ML IV SCH (13:34)
[2018-12-23] MEDS ORDERED: PIPERACILLIN/TAZOBACTAM/D5W 3.375 G in PREMIXED 1 EACH IV SCH ×4 (14:00)
--- NOTE | 2018-12-23 14:10 | NUR ---
SEEN AND EXAMINED BY DR CAPUTO , NO ORDERS MADE.
--- NOTE | 2018-12-23 14:20 | NUR ---
NOTIFIED DR QUICK REGARDING CONCERNOF PT BEING NPO AND OFF TUBE FEEDING. ORDERED TO RESUME THE FEEDING. PLANNED PROCEEDURE POSSIBLY TUESDAY FOR TRACHEOSTOMY INSERTION AND PEG INSERTION BY DR CLAY AND DR NICOLE FOR THE PEG. DR QUICK SPOKEN WITH THEM.
[2018-12-23] MEDS: GLUCERNA 1.2 1000ML LIQUID GT PRN (14:29)
--- NOTE | 2018-12-23 14:30 | NUR ---
RESUMED GLUCERNA TUBE FEEDING AT 65ML/HR PER DR QUICK. HOB UP AT 35DEGREES.
[2018-12-23] MEDS: POTASSIUM CHLORIDE 20 MEQ in IV D5W 1000ML 1,000 ML IV PRN (17:03)
--- NOTE | 2018-12-23 18:20 | NUR ---
SEEN AND EXAMINED BY DR CANDELARIO WITH NEW ORDERS.
--- NOTE | 2018-12-23 19:29 | NUR ---
PT RECEIVED ORALLY INTUBATED WITH A SIZE 7.5 ETT SECURED WITH ANCHOR-FAST APPROX. 23CM AT THE LIP. PT IS ON A BUTT VENT ON SETTINGS OF A/C 12, VT 500, PEEP +5, AND 30% FIO2. VENT PARAMETERS AND ALARMS CHECKED, ALARMS ARE AUDIBLE. SPUTUM SAMPLE COLLECTED. HME CHANGED. PT IS TOLERATING VENT SETTINGS WELL, NO RESP. DISTRESS NOTED AT THIS TIME. AMBU-BAG AT BEDSIDE. VENT PLUGGED INTO RED OUTLET. SUCTION PRN. WILL CONTINUE TO MONITOR.
[2018-12-23] MEDS ORDERED: MAGNESIUM HYDROXIDE 30 ML LIQUID UDC PO SCH (21:00)
[2018-12-23] MEDS ORDERED: MEROPENEM 1 G VIAL IV ONE (22:32)
--- NOTE | 2018-12-23 22:45 | NUR ---
RT CALLED INTO ROOM BY RN DUE TO O2 DESATURATION. AGONAL BREATHING NOTED. PT IS TACHYCARDIC AND HYPERTENSIVE. PT PLACED ON 100% FIO2. MD AND RN ARE AWARE. PER RN, PT VOMITED AND POSSIBLY ASPIRATED FEEDING. RT PERFORMED ORAL AND ETT SUCTION, MODERATE AMOUNT OF THIN FROTHY LIGHT BROWN SECRETIONS NOTED. PT SPO2 95%. ABG DRAWN PER MD ORDER. PT SISTER AT BEDSIDE. WILL CONTINUE TO MONITOR.
[2018-12-23] MEDS: MEROPENEM 1 G in IV NORMAL SALINE 100 ML IV SCH (22:51)
[2018-12-23] MEDS: DESMOPRESSIN 4 MCG/1 ML VIAL SUBCUT SCH (23:04)
[2018-12-23] MEDS ORDERED: METOPROLOL TARTRATE 5 MG/5 ML VIAL IVP PRN (23:30)
--- NOTE | 2018-12-23 23:35 | NUR ---
PEEP INCREASED TO 10, POST ABG RESULTS, PER ORDER. PT CONTINUES TO BREATH AGONALLY. RT PERFORMED ORAL AND ETT SUCTION, LARGE AMOUNT OF FROTHY LIGHT BROWN SECRETIONS NOTED. HME CHANGED. SPO2 80%, MD AND RN ARE AWARE. FAMILY AT BEDSIDE. WILL CONTINUE TO MONITOR.
[2018-12-23 23:54] LABS: BASOPHILS # (AUTO) 0.1 K/uL (0.0-8.0); BASOPHILS % (AUTO) 0.1 % (0.0-2.0); HEMATOCRIT 41.2 % (36.7-47.1); HEMOGLOBIN 12.5 g/dL (12.5-16.3); LYMPHOCYTES # (AUTO) 2.5 K/uL (20.0-40.0); LYMPHOCYTES % (AUTO) 6.7 % (20.5-51.5); MEAN CORPUSCULAR HEMOGLOBIN 28.3 uug (23.8-33.4); MEAN CORPUSCULAR HGB CONC 30 g/dL (32.5-36.3); MEAN CORPUSCULAR VOLUME 93.1 fL (73.0-96.2); MONOCYTES # (AUTO) 0.9 K/uL (2.0-10.0); MONOCYTES % (AUTO) 2.4 % (0.0-11.0); NEUTROPHILS # (AUTO) 33.5 K/uL (1.8-8.9); NEUTROPHILS % (AUTO) 90.8 % (38.5-71.5); PLATELET COUNT (AUTO) 632 K/uL (152-348); RED BLOOD CELL COUNT(AUTO) 4.43 MIL/uL (4.06-5.63)
[2018-12-24] VITALS (67 sets, daily range): BP systolic 78–140; BP diastolic 38–101
[2018-12-24] MEDS ORDERED: hydrALAZINE HCL 20 MG/1 ML VIAL IV PRN
[2018-12-24 00:01] LABS: CREATININE 1.3 mg/dL (0.6-1.3); POTASSIUM 3.9 mmol/L (3.5-5.1)
[2018-12-24 00:03] LABS: WHITE BLOOD COUNT (AUTO) 36.9 K/uL (3.6-10.2)
[2018-12-24] MEDS: INSULIN REGULAR, HUMAN 300 UNIT/3 ML VIAL SQ PRN ×3 (00:04→18:15)
[2018-12-24] MEDS: VANCOMYCIN IV 1,750 MG in IV DEXTROSE 5% 500 ML IV SCH ×3 (00:21→22:30)
[2018-12-24] MEDS: BLOOD SUGAR DIAGNOSTIC 1 EACH STRIP VI SCH ×4 (00:24→18:10)
[2018-12-24 00:26] LABS: BAND % (MANUAL) 1 % (0-10); LYMPHOCYTES % (MANUAL) 4 % (20-40); MONOCYTES % (MANUAL) 4 % (2-10); NEUTROPHILS % (MANUAL) 91 % (42-75)
[2018-12-24 00:27] LABS: ABG BASE EXCESS -0.4 mmol/L; ABG HCO3 26.1 mmol/L; ABG PCO2 50.2 mmHg (35.0-45.0); ABG PH 7.334 (7.350-7.450); ABG SITE RIGHT RADIAL; ABG TOTAL HEMOGLOBIN 13.5 G/dL (13.5-18.0); COHb 1.5 % (0.5-1.5); MetHb 0.5 % (0.0-1.5); O2Hb 74.8 % (94.0-97.0); VENT MODE VENT - A/C; VT, ABG 500 mL
[2018-12-24 01:51] LABS: ABG BASE EXCESS -2.7 mmol/L; ABG HCO3 25.3 mmol/L; ABG PH 7.257 (7.350-7.450); ABG PO2 33.1 mmHg (75.0-100.0); ABG SITE RIGHT RADIAL; COHb 1.3 % (0.5-1.5); MetHb 0.6 % (0.0-1.5); VENT MODE VENT - A/C; VT, ABG 500 mL
[2018-12-24] MEDS ORDERED: NOREPINEPHRINE BITARTRATE 4 MG/4 ML VIAL IV ONE (02:17)
[2018-12-24] MEDS ORDERED: IOHEXOL 350 100 ML INFUS..BTL ONE (02:18)
[2018-12-24] MEDS ORDERED: SWABABLE VALVE TRANSFER SET EA MC ONE (02:18)
[2018-12-24] MEDS ORDERED: NORMAL SALINE FLUSH 10 ML DISP.SYRIN ONE (02:18)
[2018-12-24] MEDS ORDERED: IV NORMAL SALINE 250 ML IV ONE (02:18)
[2018-12-24] MEDS ORDERED: BUMETANIDE INJ 6 MG in IV DEXTROSE 5% 36 ML IV ONE (02:45)
[2018-12-24] MEDS ORDERED: HEPARIN/D5W DRIP 500 ML IV PRN (02:45)
--- NOTE | 2018-12-24 03:49 | NUR ---
After return from [place], new orders from [facility] carried out. Resp. rate to 24, VT to 500, PEEP to +12.
[2018-12-24 04:55] LABS: BASOPHILS # (AUTO) 0.1 K/uL (0.0-8.0); HEMATOCRIT 35.7 % (36.7-47.1); HEMOGLOBIN 11.1 g/dL (12.5-16.3); MEAN CORPUSCULAR HEMOGLOBIN 28.8 uug (23.8-33.4); MEAN CORPUSCULAR HGB CONC 31 g/dL (32.5-36.3); MONOCYTES # (AUTO) 2.1 K/uL (2.0-10.0); RED BLOOD CELL COUNT(AUTO) 3.87 MIL/uL (4.06-5.63)
[2018-12-24] MEDS ORDERED: BUMETANIDE 2.5 MG/10 ML VIAL ONE (04:56)
[2018-12-24 04:57] LABS: BASOPHILS % (AUTO) 0.3 % (0.0-2.0); LYMPHOCYTES # (AUTO) 3.1 K/uL (20.0-40.0); LYMPHOCYTES % (AUTO) 7.6 % (20.5-51.5); MEAN CORPUSCULAR VOLUME 92.3 fL (73.0-96.2); NEUTROPHILS # (AUTO) 35.9 K/uL (1.8-8.9); NEUTROPHILS % (AUTO) 87.1 % (38.5-71.5); PLATELET COUNT (AUTO) 488 K/uL (152-348)
[2018-12-24 05:04] LABS: WHITE BLOOD COUNT (AUTO) 41.3 K/uL (3.6-10.2)
[2018-12-24 05:10] LABS: BILIRUBIN,DIRECT 0.1 mg/dL (0.0-0.2); BILIRUBIN,TOTAL 0.5 mg/dL (0.2-1.0)
[2018-12-24 05:12] LABS: BILIRUBIN,TOTAL 0.4 mg/dL (0.2-1.0); CREATININE 1.1 mg/dL (0.6-1.3); PHOSPHOROUS 4.2 mg/dL (2.5-4.9); POTASSIUM 3.2 mmol/L (3.5-5.1); TOTAL PROTEIN, SERUM 6.1 g/dL (6.4-8.2)
[2018-12-24 05:40] LABS: ABG BASE EXCESS 2.4 mmol/L; ABG HCO3 27.4 mmol/L; ABG PCO2 43.8 mmHg (35.0-45.0); ABG PH 7.414 (7.350-7.450); ABG PO2 91.4 mmHg (75.0-100.0); ABG SITE RIGHT RADIAL; ABG TOTAL HEMOGLOBIN 12.3 G/dL (13.5-18.0); COHb 1.7 % (0.5-1.5); MetHb 0.4 % (0.0-1.5); O2Hb 95.5 % (94.0-97.0); VENT MODE VENT - A/C; VT, ABG 550 mL
[2018-12-24] MEDS ORDERED: MEROPENEM 1 G VIAL IV ONE (06:00)
[2018-12-24] MEDS: NOREPINEPHRINE BITARTRATE 16 MG in IV DEXTROSE 5% 500 ML IV PRN (06:04)
[2018-12-24] MEDS: HYDROCORTISONE SOD SUCCINATE 100 MG/2 ML VIAL IV SCH ×3 (06:08→21:38)
[2018-12-24] MEDS: MEROPENEM 1 G in IV NORMAL SALINE 100 ML IV SCH ×3 (06:13→21:39)
[2018-12-24] MEDS: LEVOTHYROXINE SODIUM 150 MCG TABLET NG SCH (07:00)
--- NOTE | 2018-12-24 07:25 | NUR ---
CRITICAL WBC RESULT OF 41.[address] RICHARDS WITH NEW ORDER TO SEND STOOL FOR C DIF. NO STOOL NOTED AT THIS TIME.
--- NOTE | 2018-12-24 07:30 | NUR ---
PT RECEIVED ON CONTINUOUS VENT AC 24 VT 550 PEEP 12 FIO2 100% . ETT 7.5 SECURED APPROX.23 CM LIP LINE VIA ANCHOR FAST. MOVED ETT TO RIGHT SIDE. BS DIMINISHED. SUCTION PRN. VENT CHECKED, ALARMS WORKING WELL AND AUDIBLE, NO DISTRESS NOTED AT THIS TIME. WILL CONTINUE TO MONITOR.
--- NOTE | 2018-12-24 07:30 | NUR ---
RECIEVED PT LYINGIN BED, RESPONSIVE TO DEEP PAINFUL STIMULI AND SUCTIONING. PUPILS ARE DILATED ANDUNEQUALLY FIXED RIGHT IS 5 AND LEFT IS 4. MD IS AWARE. HR IS SR AND SBP IS MAINTAINED ABOVE 100 WITH LEVOPHED DRIP SET AT 10MCG/MIN. VIA PICC LINE. TEMPERATURE IS SLOWLY CLIMBING AT 100.7F. PT PLACED ON HYPOTHERMIA BLANKET TO KEEP TEMP AT 98.F ALL EXTREMETIES ARE FLACCID. NO SEIZURES NOTED.
--- NOTE | 2018-12-24 08:00 | NUR ---
ETT INTACT. VENT SETTING IS AC-24, VT-550, FIO2-100%, PEEP-12. O2SAT IS 100%.
[2018-12-24] MEDS: PANTOPRAZOLE SODIUM 40 MG VIAL IV SCH (09:14)
[2018-12-24] MEDS: LACOSAMIDE 100 MG/10 ML UDC XX SCH ×2 (09:14→21:38)
[2018-12-24] MEDS: DESMOPRESSIN 4 MCG/1 ML VIAL SUBCUT SCH ×2 (09:14→21:37)
[2018-12-24] MEDS: ACIDOPHILUS/BULGARICUS CHEW TAB NG SCH ×2 (09:14→21:37)
[2018-12-24] MEDS: NUTRISOURCE FIBER 4 GM PACKET GT SCH (09:16)
[2018-12-24] MEDS ORDERED: ACETAMINOPHEN 650 MG/20.3 ML LIQUID UDC NG PRN (09:45)
--- NOTE | 2018-12-24 10:00 | NUR ---
PT NPO AT THIS TIME. ABDOMEN IS BIG AND DISTENDED BUT SOFT TO TOUCH. RECTAL TUBE IS NOT DRAINING ANYTHING. STOOL FOR C DIF NOT YET DONE.
--- NOTE | 2018-12-24 10:30 | NUR ---
SEEN AND EXAMINED BY DR HOUSE WITH NEW ORDER.
--- NOTE | 2018-12-24 10:30 | NUR ---
BUMEX DRIP IS FINISHED.
--- NOTE | 2018-12-24 10:45 | NUR ---
DECREASED THE FIO2 DOWN TO 80% BY RT ORDERED. O2SAT MAINTAINED AT 99%.
--- NOTE | 2018-12-24 11:24 | NUR ---
Clinical pharmacy note-Vancomycin dosing per pharmacy Subjective: To continue Vancomycin dosing for pneumonia. Also on merrem Objective: BUN 23 Scr 1.1 WBC 41.3 Temp 101.3 Ht 175.26cm Wt 103.419kg Trough pending tonight at 2200 Assessment/Plan: Since renal function is stable, will continue Vancomycin 1750mg IV every 11hrs (first dose today at 1330) and draw trough by 4th dose (due tonight at 2200) for expected trough around 16 for pneumonia. RN endorsed to hold dose if trough >20. Will check level in am and adjust as needed. Will follow
[2018-12-24] MEDS: POTASSIUM CHLORIDE 50 ML IV SCH ×3 (12:01→14:19)
--- NOTE | 2018-12-24 13:00 | NUR ---
SEEN AND EXAMINED BY DR CAPUTO WITH NEWORDERS. FIO2 DROPPED DOWN TO 40% BY RT ORDERED. O2SAT MAINTAINED ABOVE 94%.
[2018-12-24] MEDS ORDERED: IV D5W 1000ML 1,000 ML IV ONE (13:15)
--- NOTE | 2018-12-24 14:00 | NUR ---
SEEN AND EXAMINED BY DR XIONG WITH NEW ORDERS.
--- NOTE | 2018-12-24 14:45 | NUR ---
FIO2 CONTINUED TO DROP DOWN TO 40% BY RT ORDERED. O2SAT IS ABOVE 94%.
--- NOTE | 2018-12-24 16:00 | NUR ---
PT'S TEMP IS SLOWLY DROPPING DOWN AT 95.5F. PLACED ON [facility] MACHINE.PM CARE RENDERED.
--- NOTE | 2018-12-24 18:00 | NUR ---
PT DIURESING WELL LARGE AMOUNT OF CLEAR YELLOW URINE.
--- NOTE | 2018-12-24 18:45 | NUR ---
LATEST TEMP IS 96F
--- NOTE | 2018-12-24 19:10 | NUR ---
PATIENT RECEIVED ON CMV WITH PRESCRIBED SETTINGS OF AC 24, VT550, +12, FIO2 40%. HE SHOWS NO SIGNS OF RESPIRATORY DISTRESS NOTED AT THIS TIME. HE IS ORALLY INTUBATED WITH A 7.5 ET TUBE, ~23CM LIP LINE. TUBE SECURED WITH ANCHORFAST; MOVED THROUGHOUT SHIFT TO PREVENT LIP ABRASION. SUCTIONED SMALL AMOUNTS OF THIN PALE YELLOW SECRETIONS. ALARMS ASSESSED AND ARE ON/AUDIBLE. WILL CONTINUE TO MONITOR THROUGHOUT SHIFT.
[2018-12-24] MEDS ORDERED: VANCOMYCIN FOR PO/GT/NG USE NG SCH (21:00)
[2018-12-25] VITALS (84 sets, daily range): BP systolic 69–130; BP diastolic 33–102
[2018-12-25] MEDS: BLOOD SUGAR DIAGNOSTIC 1 EACH STRIP VI SCH ×5 (00:59→23:17)
[2018-12-25] MEDS: ACETAMINOPHEN 650 MG SUPP.RECT RC PRN (01:00)
[2018-12-25] MEDS: INSULIN REGULAR, HUMAN 300 UNIT/3 ML VIAL SQ PRN ×3 (01:03→23:18)
[2018-12-25] MEDS ORDERED: POTASSIUM CHLORIDE 50 ML IV SCH ×2 (02:30→14:30)
[2018-12-25] MEDS: NOREPINEPHRINE BITARTRATE 16 MG in IV DEXTROSE 5% 500 ML IV PRN (05:07)
[2018-12-25 05:19] LABS: BASOPHILS # (AUTO) 0.1 K/uL (0.0-8.0); BASOPHILS % (AUTO) 0.2 % (0.0-2.0); EOSINOPHILS # (AUTO) 0.2 K/uL (0.0-0.7); EOSINOPHILS % (AUTO) 0.9 % (0.0-7.0); HEMATOCRIT 33.8 % (36.7-47.1); LYMPHOCYTES # (AUTO) 4.6 K/uL (20.0-40.0); LYMPHOCYTES % (AUTO) 20.2 % (20.5-51.5); MEAN CORPUSCULAR HEMOGLOBIN 28.9 uug (23.8-33.4); MEAN CORPUSCULAR HGB CONC 33 g/dL (32.5-36.3); MEAN CORPUSCULAR VOLUME 88.7 fL (73.0-96.2); MONOCYTES # (AUTO) 0.8 K/uL (2.0-10.0); MONOCYTES % (AUTO) 3.5 % (0.0-11.0); NEUTROPHILS % (AUTO) 75.2 % (38.5-71.5); PLATELET COUNT (AUTO) 488 K/uL (152-348); RED BLOOD CELL COUNT(AUTO) 3.81 MIL/uL (4.06-5.63); WHITE BLOOD COUNT (AUTO) 22.7 K/uL (3.6-10.2)
[2018-12-25 05:37] LABS: CREATININE 1.1 mg/dL (0.6-1.3); MAGNESIUM 1.9 mg/dL (1.8-2.4); PHOSPHOROUS 1.8 mg/dL (2.5-4.9)
[2018-12-25 05:44] LABS: POTASSIUM 2.4 mmol/L (3.5-5.1)
[2018-12-25] MEDS: HYDROCORTISONE SOD SUCCINATE 100 MG/2 ML VIAL IV SCH ×3 (06:11→21:07)
[2018-12-25] MEDS: MEROPENEM 1 G in IV NORMAL SALINE 100 ML IV SCH ×3 (06:11→21:07)
--- NOTE | 2018-12-25 06:49 | NUR ---
Per AQ orders, ventilator setting changes rate to 18, PEEP to +5 gradually, and advance ETT from 23cm to 25cm. PEEP titrated from +12 to +10 at this time. Changes to be endorsed to incoming shift.
--- NOTE | 2018-12-25 07:15 | NUR ---
PT RECEIVED ON VENT WITH SETTINGS OF AC 18, VT550, +10, FIO2 40%. PT SHOWS NO SIGNS OF RESPIRATORY DISTRESS NOTED AT THIS TIME. PT IS ORALLY INTUBATED WITH A 7.5 ET TUBE, APROX 23CM AT THE LIP LINE. TUBE SECURED WITH ANCHORFAST; SUCTIONED SMALL AMOUNTS OF THIN PALE YELLOW SECRETIONS. ALARMS ASSESSED AND ARE ON/AUDIBLE. WILL CONTINUE TO MONITOR THROUGHOUT SHIFT
[2018-12-25] MEDS: NUTRISOURCE FIBER 4 GM PACKET GT SCH (08:03)
[2018-12-25] MEDS: LEVOTHYROXINE SODIUM 150 MCG TABLET NG SCH (08:03)
[2018-12-25] MEDS: PANTOPRAZOLE SODIUM 40 MG VIAL IV SCH (08:03)
[2018-12-25] MEDS: DESMOPRESSIN 4 MCG/1 ML VIAL SUBCUT SCH ×2 (08:04→20:34)
[2018-12-25] MEDS: ACIDOPHILUS/BULGARICUS CHEW TAB NG SCH ×2 (08:04→20:36)
[2018-12-25 08:16] LABS: ABG BASE EXCESS 7.2 mmol/L; ABG HCO3 27.2 mmol/L; ABG PCO2 24.9 mmHg (35.0-45.0); ABG PH 7.656 (7.350-7.450); ABG PO2 88.4 mmHg (75.0-100.0); ABG SITE RIGHT RADIAL; ABG TOTAL HEMOGLOBIN 11.6 G/dL (13.5-18.0); COHb 1.3 % (0.5-1.5); MetHb 0.1 % (0.0-1.5); O2Hb 96.5 % (94.0-97.0); VENT MODE VENT - A/C; VT, ABG 550 mL
[2018-12-25] MEDS: LACOSAMIDE 100 MG/10 ML UDC XX SCH ×2 (08:17→20:33)
[2018-12-25] MEDS: VANCOMYCIN FOR PO/GT/NG USE NG SCH ×4 (08:36→23:15)
[2018-12-25] MEDS: VANCOMYCIN IV 1,750 MG in IV DEXTROSE 5% 500 ML IV SCH ×2 (08:37→21:08)
--- NOTE | 2018-12-25 08:59 | NUR ---
INFORMATION SENT: FACESHEET,PROGRESS NOTES 12/22,12/23,12/24,UR-12/22,12/23,12/24,24 HOURS REPORT,DISCHARE SUMMARY INSURANCE NAME: [facility]SEA [facility] FAX NUMBER: [phone] / [phone] FAX SENT
--- NOTE | 2018-12-25 09:13 | NUR ---
Clinical pharmacy note-Vancomycin dosing per pharmacy Subjective: To continue Vancomycin dosing for pneumonia. Also on merrem Objective: BUN 20 Scr 1.1 WBC 22.7 Temp 98.9 Ht 175.26cm Wt 103.419kg Vanco Trough level: 21.3 (on 12/24 at 2200 Assessment/Plan: Since vanco trough level is above 20 mcg/ml. RN held dose last night. Will change dose to Vancomycin 1750mg IV every 13hrs (first dose today at 0900) and draw trough by 4th dose (not yet ordered) for expected trough around 16 mcg/ml for pneumonia. Will follow
[2018-12-25] MEDS ORDERED: IV D5W 1000ML 1,000 ML IV PRN (09:45)
--- NOTE | 2018-12-25 10:11 | NUR ---
mother at the bedside. consent signed for tracheostomy today. Addendum: 12/25/18 at 1011 by MARGARITA OSHEA RN Amended: Links added.
--- NOTE | 2018-12-25 10:40 | NUR ---
RT decreased PEEP to 8 per MD order.
[2018-12-25] MEDS: POTASSIUM PHOSPHATE MM 5 MMOL in IV DEXTROSE 5% 100 ML IV SCH ×4 (10:58→16:49)
--- NOTE | 2018-12-25 11:08 | NUR ---
IV KPhos total 20mmmol started IV to replace phos 1.8 Addendum: 12/25/18 at 1108 by MARGARITA OSHEA RN Amended: Links added. Addendum: 12/25/18 at 1110 by MARGARITA OSHEA RN Amended: Links added. Addendum: 12/25/18 at 1111 by MARGARITA OSHEA RN Amended: Links added.
--- NOTE | 2018-12-25 11:10 | NUR ---
dr Christianson returned call. condition report given. cleared cardiac monreal for tracheostomy today Addendum: 12/25/18 at 1110 by MARGARITA OSHEA RN Amended: Links added. Addendum: 12/25/18 at 1111 by MARGARITA OSHEA RN Amended: Links added.
--- NOTE | 2018-12-25 12:21 | NUR ---
CLAUDIA 112, NO INSULIN COVERAGE Addendum: 12/25/18 at 1221 by MARGARITA OSHEA RN Amended: Links added.
--- NOTE | 2018-12-25 13:10 | NUR ---
RT decreased RR to 14 and VT to 500 per MD. nurse aware. will cont to monitor pt
[2018-12-25] MEDS ORDERED: LIDOCAINE 1%-EPI 1:100,000 20 ML VIAL ONE (13:26)
[2018-12-25 13:58] LABS: POTASSIUM 2.3 mmol/L (3.5-5.1)
--- NOTE | 2018-12-25 14:18 | NUR ---
TRACHEOSTOMY cancelled secondary to k 2.3 Addendum: 12/25/18 at 1418 by MARGARITA OSHEA RN Amended: Main added. Addendum: 12/25/18 at 1419 by MARGARITA OSHEA RN Amended: Main crow.
--- NOTE | 2018-12-25 14:19 | NUR ---
call to dr frazier, dr Christianson for k replacement orders Addendum: 12/25/18 at 1419 by MARGARITA OSHEA RN Amended: Links added.
[2018-12-25] MEDS ORDERED: POTASSIUM CHLORIDE 20 MEQ TAB.PRT.SR PO ONE (14:30)
--- NOTE | 2018-12-25 14:30 | NUR ---
call to dr jagjit golden re patient's current mental status. orders received Addendum: 12/25/18 at 1529 by MARGARITA OSHEA RN Amended: Links added.
--- NOTE | 2018-12-25 15:26 | NUR ---
back to room from head ct Addendum: 12/25/18 at 1526 by MARGARITA OSHEA RN Amended: Main added. Addendum: 12/25/18 at 1528 by MARGARITA OSHEA RN Amended: Main crow.
--- NOTE | 2018-12-25 15:28 | NUR ---
call to dr jagjit golden re patient's current mental status. orders received Addendum: 12/25/18 at 1528 by MARGARITA OSHEA RN Amended: Links added.
[2018-12-25] MEDS ORDERED: POTASSIUM CHLORIDE 20 MEQ POWDER PACKET NG ONE (15:30)
[2018-12-25] MEDS: POTASSIUM CHLORIDE 50 ML IV SCH ×4 (15:34→19:26)
--- NOTE | 2018-12-25 18:00 | NUR ---
seen by Dr Patricia cox Addendum: 12/25/18 at 1838 by MARGARITA OSHEA RN Amended: Links added.
--- NOTE | 2018-12-25 18:16 | NUR ---
miguel ángel 148, covered with 2 units humulin R SQ Addendum: 12/25/18 at 1816 by MARGARITA OSHEA RN Amended: Links added.
--- NOTE | 2018-12-25 19:35 | NUR ---
Received pt nonverbal, pupils fixed and dilated, upper and lower extremities flaccid. Pt HOB elevated, vent settings: AC 14, TV 500, PEEP 5, FIO2 40%. O2 sats up to 99%. Tele noted to be SR with HR of 68. Levophed running at 3 mcg/min. Antibiotic therapy noted on shift. Aspiration precautions and safety measures observed. Turned and repositioned. Assessment done. Pending trach and PEG placement. Will closely monitor. Addendum: 12/26/18 at 0301 by RIDDHI WORLEY RN Amended: Links added.
--- NOTE | 2018-12-25 19:40 | NUR ---
Pt received orally intubated with 7.5 ETT secured at 25cm lip line. Pt is on Costa vent with ordered settings of A/C-14, VT-500, PEEP+5, FIO2-40% Tolerating vent settings well. SpO2-99% Sxn'd and lavaged as needed. Sxn'd small amounts of white secretions. ETT secured with AnchorFast device. Good skin integrity noted, to area of application. ETT moved periodically to alternating side of mouth, per hospital policy. No signs or symptoms of respiratory distress noted. Oral care done. HME changed. Vent alarm parameters checked, on and audible. Bag/valve/mask at bedside. Vent plugged into red emergency outlet. Will continue to monitor Pt throughout shift.
--- NOTE | 2018-12-25 20:58 | NUR ---
Pt seen and examined by attending physician, PATRICIA YUNG. Report given. See order history. Addendum: 12/25/18 at 2101 by RIDDHI WORLEY RN order to resume tube feeding (Glucerna 1.2), D/C main IV fluids, and give 40 meQ potassium via GTube.
[2018-12-25] MEDS: GLUCERNA 1.2 1000ML LIQUID GT PRN (21:02)
[2018-12-25] MEDS ORDERED: POTASSIUM CHLORIDE 20 MEQ POWDER PACKET GT ONE (22:00)
[2018-12-25] MEDS: IV NORMAL SALINE 250 ML BAG IV ONE ×2 (22:15→22:26)
--- NOTE | 2018-12-25 22:15 | NUR ---
NS 250 mL not given as bolus, new order of NS 250 mL TKO for multiple piggyback antibiotics or for secondary line purposes.
[2018-12-25 22:27] LABS: BASOPHILS % (AUTO) 0.1 % (0.0-2.0); HEMATOCRIT 30.7 % (36.7-47.1); HEMOGLOBIN 9.9 g/dL (12.5-16.3); LYMPHOCYTES % (AUTO) 8.5 % (20.5-51.5); MEAN CORPUSCULAR HEMOGLOBIN 28.4 uug (23.8-33.4); MEAN CORPUSCULAR HGB CONC 32 g/dL (32.5-36.3); MEAN CORPUSCULAR VOLUME 87.8 fL (73.0-96.2); MONOCYTES % (AUTO) 2.4 % (0.0-11.0); PLATELET COUNT (AUTO) 412 K/uL (152-348); RED BLOOD CELL COUNT(AUTO) 3.49 MIL/uL (4.06-5.63); WHITE BLOOD COUNT (AUTO) 19.1 K/uL (3.6-10.2)
[2018-12-25 22:28] LABS: EOSINOPHILS # (AUTO) 0.2 K/uL (0.0-0.7); LYMPHOCYTES # (AUTO) 1.6 K/uL (20.0-40.0); MONOCYTES # (AUTO) 0.5 K/uL (2.0-10.0); NEUTROPHILS # (AUTO) 16.8 K/uL (1.8-8.9)
[2018-12-25] MEDS ORDERED: MANNITOL 25% 12.5 G/50 ML VIAL IV ONE ×2 (22:45→23:43)
[2018-12-25] MEDS ORDERED: MANNITOL 20% 125 ML IV ONE (23:30)
[2018-12-25] MEDS ORDERED: MANNITOL 20% 500 ML IV ONE (23:56)
[2018-12-26] VITALS (90 sets, daily range): BP systolic 78–145; BP diastolic 34–105
[2018-12-26] MEDS: IV NORMAL SALINE 250 ML IV PRN (02:03)
[2018-12-26 04:57] LABS: BASOPHILS % (AUTO) 0.1 % (0.0-2.0); EOSINOPHILS % (AUTO) 0.2 % (0.0-7.0); HEMATOCRIT 32.7 % (36.7-47.1); HEMOGLOBIN 10.7 g/dL (12.5-16.3); LYMPHOCYTES # (AUTO) 1.5 K/uL (20.0-40.0); LYMPHOCYTES % (AUTO) 6.8 % (20.5-51.5); MEAN CORPUSCULAR HEMOGLOBIN 28.7 uug (23.8-33.4); MEAN CORPUSCULAR HGB CONC 33 g/dL (32.5-36.3); MEAN CORPUSCULAR VOLUME 87.4 fL (73.0-96.2); MONOCYTES # (AUTO) 0.6 K/uL (2.0-10.0); MONOCYTES % (AUTO) 2.7 % (0.0-11.0); NEUTROPHILS # (AUTO) 19.3 K/uL (1.8-8.9); NEUTROPHILS % (AUTO) 90.2 % (38.5-71.5); PLATELET COUNT (AUTO) 416 K/uL (152-348); RED BLOOD CELL COUNT(AUTO) 3.74 MIL/uL (4.06-5.63); WHITE BLOOD COUNT (AUTO) 21.4 K/uL (3.6-10.2)
[2018-12-26 05:15] LABS: BILIRUBIN,TOTAL 0.6 mg/dL (0.2-1.0); CREATININE 0.8 mg/dL (0.6-1.3); MAGNESIUM 1.8 mg/dL (1.8-2.4); PHOSPHOROUS 3.4 mg/dL (2.5-4.9); POTASSIUM 3.7 mmol/L (3.5-5.1); TOTAL PROTEIN, SERUM 6.5 g/dL (6.4-8.2)
[2018-12-26] MEDS: HYDROCORTISONE SOD SUCCINATE 100 MG/2 ML VIAL IV SCH ×3 (05:50→21:32)
[2018-12-26] MEDS: BLOOD SUGAR DIAGNOSTIC 1 EACH STRIP VI SCH ×4 (05:51→23:47)
[2018-12-26] MEDS: MEROPENEM 1 G in IV NORMAL SALINE 100 ML IV SCH ×3 (05:51→21:27)
[2018-12-26] MEDS: LEVOTHYROXINE SODIUM 150 MCG TABLET NG SCH (06:03)
--- NOTE | 2018-12-26 07:30 | NUR ---
report received from Miriam RN Addendum: 12/26/18 at 0822 by MARGARITA OSHEA RN Amended: Links added.
--- NOTE | 2018-12-26 07:35 | NUR ---
PT RECEIVED ON BUTT VENT. CURRENT SETTINGS ARE A/C 14, VT 500, PEEP +5, FIO2 40%. NO CHANGES MADE AT THIS TIME. PT APPEARS TO BE TOLERATING VENT AT THIS TIME. PT IS ORALLY INTUBATED WITH A 7.5 ETT, APPROXIMATELY 23 CM AT THE LIP. ETT IS PATENT AND SECURED VIA ANCHOR FAST. BUTT VENT ALARMS CHECKED, ARE ON AND AUDIBLE. HME CHANGED NEEDED. ORAL CARE DONE. SUCTIONED SMALL AMOUNT OF SECRETIONS. AMBU BAG IS AT BEDSIDE. VENTILATOR IS PLUGGED INTO RED EMERGENCY OUTLET. WILL CONTINUE TO MONITOR THROUGHOUT SHIFT.
[2018-12-26] MEDS: ACIDOPHILUS/BULGARICUS CHEW TAB NG SCH ×2 (07:59→20:37)
[2018-12-26] MEDS: VANCOMYCIN FOR PO/GT/NG USE NG SCH ×4 (07:59→23:47)
[2018-12-26] MEDS: PANTOPRAZOLE SODIUM 40 MG VIAL IV SCH (07:59)
[2018-12-26] MEDS: LACOSAMIDE 100 MG/10 ML UDC XX SCH ×2 (07:59→20:37)
[2018-12-26] MEDS: DESMOPRESSIN 4 MCG/1 ML VIAL SUBCUT SCH (08:00)
[2018-12-26] MEDS: NUTRISOURCE FIBER 4 GM PACKET GT SCH (08:01)
--- NOTE | 2018-12-26 08:01 | NUR ---
INFORMATION SENT:FACESHEET,PROGRESS NOTES 12/25,UR-12/25,IMAGING,24 HOURS REPORT INSURANCE NAME:[facility] FAX NUMBER:[phone] FAX SENT
[2018-12-26] MEDS: NOREPINEPHRINE BITARTRATE 16 MG in IV DEXTROSE 5% 500 ML IV PRN (08:53)
--- NOTE | 2018-12-26 09:00 | NUR ---
seen by Dr Patricia scanlon orders Addendum: 12/26/18 at 1096 by MARGARIAT OSHEA RN Amended: Links added.
[2018-12-26] MEDS ORDERED: GLUCERNA 1.2 1000ML LIQUID GT PRN (09:15)
[2018-12-26] MEDS: VANCOMYCIN IV 1,750 MG in IV DEXTROSE 5% 500 ML IV SCH ×2 (10:37→23:47)
--- NOTE | 2018-12-26 11:06 | NUR ---
seen by Ramandeep Atwood NP for ID. no orders received. Addendum: 12/26/18 at 1106 by MARGARITA OSHEA RN Amended: Links added. Addendum: 12/26/18 at 1107 by MARGARITA OSHEA RN Amended: Links added. Addendum: 12/26/18 at 1109 by MARGARITA OSHEA RN Amended: Links added.
--- NOTE | 2018-12-26 11:07 | NUR ---
seen by dr Mejia with no new orders Addendum: 12/26/18 at 1107 by MARGARITA OSHEA RN Amended: Main crow. Addendum: 12/26/18 at 1109 by MARGARITA OSHEA RN Amended: Main crow.
--- NOTE | 2018-12-26 11:08 | NUR ---
seen by dr Govea. will discuss case with other care providers , then will talk to family re plan of care Addendum: 12/26/18 at 1109 by MARGARITA OSHEA RN Amended: Links added.
--- NOTE | 2018-12-26 12:15 | NUR ---
miguel ángel 166, covered with 3 units humulin R SQ Addendum: 12/26/18 at 1252 by MARGARITA OSHEA RN Amended: Links added.
[2018-12-26] MEDS: INSULIN REGULAR, HUMAN 300 UNIT/3 ML VIAL SQ PRN (12:24)
--- NOTE | 2018-12-26 12:45 | NUR ---
Clinical pharmacy note-Vancomycin dosing per pharmacy Subjective: To continue Vancomycin dosing for pneumonia. Objective: BUN 14 Scr 0.8 WBC 21.4 Temp 98.2 Ht 175.26cm Wt 103.419kg Vanco Trough level: 21.3 (on 12/24 at 2200 Assessment/Plan: Will continue same dose of Vancomycin 1750mg IV every 13hrs for today. 3rd dose today at 1100. Plan to draw trough by 4th dose (ordered for today at 2330- RN has been informed to hold midnight dose if trough level above 20 mcg/ml. Pharmacy shall review the level in am & adjust the dose if needed. Will follow
--- NOTE | 2018-12-26 17:23 | NUR ---
miguel ángel 106, no coverage Addendum: 12/26/18 at 1723 by MARGARITA OSHEA RN Amended: Links added.
--- NOTE | 2018-12-26 18:38 | NUR ---
family at the bedside. asking lots of questions. tried to give emotional support. Addendum: 12/26/18 at 1838 by MARGARITA OSHEA RN Amended: Links added.
--- NOTE | 2018-12-26 19:17 | NUR ---
report given to Fede Addendum: 12/26/18 at 1917 by MARGARITA OSHEA RN Amended: Links added.
--- NOTE | 2018-12-26 20:00 | NUR ---
RECEIVED PT. NONRESPONSIVE TO ANY NOXIOUS STIMULI. ORALLY INTUBATED TO VENT W/ SETTINGS OF AC-14, TV-500, FIO2-40%, PEEP-+5 W/ O2 SAT OF 99%. SUCTIONED ORALLY & VIA ETT W/ MINIMAL TANNISH THICK MUCOUS. ORAL GASTRIC TUBE INTACT, CHECKED PLACEMENT & CHECKED RESIDUAL 120CC NOTED HOLD FDG, WILL RECHECK RESIDUAL IN 1HR. ON LEVOPHED DRIP @ 2MCQ/MIN VIA PICC LINE ON GAMAL. NS TKO FOR IVPB MED. AFEBRILE.
[2018-12-26] MEDS ORDERED: DESMOPRESSIN 0.1 MG TABLET NG SCH ×2 (21:00)
[2018-12-27] VITALS (97 sets, daily range): BP systolic 65–154; BP diastolic 35–121
--- NOTE | 2018-12-27 00:53 | NUR ---
PT RECEIVED ORALLY INTUBATED WITH A SIZE 7.5 ET TUBE. PT IS ON A BUTT VENT WITH THE FOLLOWING SETTINGS THAT ARE CHARTED ON THE MECHANICAL VENT NOTES. ETT IS SECURED WITH THE ANCHOR FAST AT APPROX 23 AT THE LIP LINE. AMBU BAG IS BY BEDSIDE. SUCTIONED SMALL WHITE AND YELLOW SECRETIONS. VENTILATOR ALARMS CHECKED AND THEY ARE ON AND AUDIBLE. VENTILATOR IS PLUGGED IN THE RED OUTLET. PT IS TOLERATING CURRENT VENTILATOR SETTINGS WELL AT THIS TIME WITH NO SOB NOTED AT THIS TIME. WILL CONTINUE TO MONITOR.
--- NOTE | 2018-12-27 04:00 | NUR ---
AM CARE DONE. ORAL CARE DONE. REPOSITIONED W/ HOB ELEVATED,.
[2018-12-27 05:30] LABS: BASOPHILS % (AUTO) 0.2 % (0.0-2.0); EOSINOPHILS # (AUTO) 0.2 K/uL (0.0-0.7); EOSINOPHILS % (AUTO) 0.9 % (0.0-7.0); HEMATOCRIT 30.6 % (36.7-47.1); HEMOGLOBIN 10.2 g/dL (12.5-16.3); LYMPHOCYTES # (AUTO) 2.3 K/uL (20.0-40.0); LYMPHOCYTES % (AUTO) 10.7 % (20.5-51.5); MEAN CORPUSCULAR HEMOGLOBIN 28.5 uug (23.8-33.4); MEAN CORPUSCULAR HGB CONC 33 g/dL (32.5-36.3); MEAN CORPUSCULAR VOLUME 85.9 fL (73.0-96.2); MONOCYTES % (AUTO) 4.6 % (0.0-11.0); NEUTROPHILS # (AUTO) 18.3 K/uL (1.8-8.9); NEUTROPHILS % (AUTO) 83.6 % (38.5-71.5); PLATELET COUNT (AUTO) 411 K/uL (152-348); RED BLOOD CELL COUNT(AUTO) 3.57 MIL/uL (4.06-5.63); WHITE BLOOD COUNT (AUTO) 21.9 K/uL (3.6-10.2)
[2018-12-27 05:32] LABS: CARBON DIOXIDE 28 mmol/L (21-32); CHLORIDE 94 mmol/L (98-107); CREATININE 0.6 mg/dL (0.6-1.3); GLUCOSE 106 mg/dL (74-106); MAGNESIUM 1.8 mg/dL (1.8-2.4); PHOSPHOROUS 2.3 mg/dL (2.5-4.9); POTASSIUM 3.2 mmol/L (3.5-5.1); UREA NITROGEN, BLOOD 16 mg/dL (7-18)
[2018-12-27] MEDS: MEROPENEM 1 G in IV NORMAL SALINE 100 ML IV SCH ×3 (05:32→22:19)
[2018-12-27] MEDS: HYDROCORTISONE SOD SUCCINATE 100 MG/2 ML VIAL IV SCH ×3 (05:33→22:20)
[2018-12-27] MEDS: VANCOMYCIN FOR PO/GT/NG USE NG SCH ×3 (05:34→17:59)
[2018-12-27] MEDS: BLOOD SUGAR DIAGNOSTIC 1 EACH STRIP VI SCH ×3 (05:43→17:59)
[2018-12-27] MEDS: IV NORMAL SALINE 250 ML IV PRN (05:53)
--- NOTE | 2018-12-27 06:00 | NUR ---
OFF TUBE FDG, WILL RESUME AT 1000.
[2018-12-27] MEDS: LEVOTHYROXINE SODIUM 150 MCG TABLET NG SCH (06:17)
--- NOTE | 2018-12-27 07:46 | NUR ---
INFORMATION SENT: FACESHEET,24 HOURS REPORT,PROGRESS NOTES 12/26,UR 12/26 INSURANCE NAME: [facility] FAX NUMBER: [phone] / [phone] FAX SENT
[2018-12-27] MEDS ORDERED: DESMOPRESSIN 0.1 MG TABLET NG SCH (09:00)
[2018-12-27] MEDS: ACIDOPHILUS/BULGARICUS CHEW TAB NG SCH ×2 (09:00→22:20)
[2018-12-27] MEDS: PANTOPRAZOLE SODIUM 40 MG VIAL IV SCH (09:00)
[2018-12-27] MEDS: NUTRISOURCE FIBER 4 GM PACKET GT SCH (09:14)
[2018-12-27] MEDS: LACOSAMIDE 100 MG/10 ML UDC XX SCH ×2 (09:14→22:22)
[2018-12-27] MEDS ORDERED: VANCOMYCIN IV 1,750 MG in IV DEXTROSE 5% 500 ML IV SCH (10:00)
[2018-12-27] MEDS: INSULIN REGULAR, HUMAN 300 UNIT/3 ML VIAL SQ PRN (11:06)
--- NOTE | 2018-12-27 12:33 | NUR ---
WOUND CARE CONSULT: PT PRESENTS WITH IMMOBILITY, INTUBATED WITH INTACT SKIN. PT HAS GARSIA AND RECTAL TUBE. ALL SKIN PROTECTION MEASURES IN PLACE AND DISCUSSED WITH NURSING STAFF. WILL SEE PRN. [facility] IN AGREEMENT WITH PLAN OF CARE. CURRENT JJ SCORE IS 10.
[2018-12-27] MEDS ORDERED: POTASSIUM CHLORIDE 20 MEQ POWDER PACKET NG ONE (12:45)
--- NOTE | 2018-12-27 13:35 | NUR ---
Clinical pharmacy note-Vancomycin dosing per pharmacy Subjective: To continue Vancomycin dosing for pneumonia. Objective: BUN 16 Scr 0.6 WBC 21.9 Temp 97.8 Ht 175.26cm Wt 103.419kg Vanco Trough level: 21.3 (on 12/24 at 2200) Vanco trough level: 9 (on 12/26 at 2330 Assessment/Plan: Since vanco trough level is sub-therapeutic, will change Vancomycin 1750mg IV every 10hrs for predicted vanco trough level of 15 mcg/ml at steady state. 2nd dose today at 1000. Plan to draw trough by 5th dose (ordered for tomorrow at 1530). Pharmacy shall review the level & adjust the dose if needed. Will monitor renal function & adjust the dose if needed. Will follow
--- NOTE | 2018-12-27 13:48 | NUR ---
PT ON BUTT VENT, SETTINGS AC 14, VT 500, +5, 40% FIO2. TOLERATING VENT SETTINGS FAIRLY WELL, NO RESPIRATORY DISTRESS NOTED. 7.5 ETT IS PATENT AND SECURED WITH ANCHOR FAST APPROX. 23CM LIP LINE. HAS MINIMAL AMOUNTS OF SECRETIONS. ALARMS ARE AND AUDIBLE BVM AT BEDSIDE. WILL CONTINUE TO MONITOR.
[2018-12-27 14:27] LABS: CARBON DIOXIDE 30 mmol/L (21-32); CHLORIDE 98 mmol/L (98-107); CREATININE 0.6 mg/dL (0.6-1.3); GLUCOSE 123 mg/dL (74-106); POTASSIUM 3.3 mmol/L (3.5-5.1); UREA NITROGEN, BLOOD 14 mg/dL (7-18)
[2018-12-27] MEDS ORDERED: NEUTRA PHOS PACKET PO ONE (15:30)
--- NOTE | 2018-12-27 19:55 | NUR ---
RECEIVED PT ORALLY INTUBATED WITH A 7.5 ETT APPROX. 23CM AT THE LIP. BUTT VENTILATOR IN USE - SETTINGS ARE: A/C 14, VT 500, PEEP +5, FIO2 40%. NO CHANGES MADE AT THIS TIME. PT APPEARS TO BE TOLERATING VENT AT THIS TIME. VENT ALARMS CHECKED, ARE ON AND FUNCTIONING PROPERLY. HME CHANGED. ORAL CARE DONE. SUCTIONED SMALL AMOUNT OF SECRETIONS. AMBU BAG REMAINS AT BEDSIDE. VENTILATOR IS PLUGGED INTO RED EMERGENCY OUTLET. NO S/S OF RESPIRATORY DISTRESS NOTED AT THIS TIME. WILL CONTINUE TO MONITOR THROUGHOUT SHIFT.
[2018-12-28] VITALS (87 sets, daily range): BP systolic 76–139; BP diastolic 39–91
[2018-12-28] MEDS: BLOOD SUGAR DIAGNOSTIC 1 EACH STRIP VI SCH ×5 (00:36→23:11)
[2018-12-28] MEDS: INSULIN REGULAR, HUMAN 300 UNIT/3 ML VIAL SQ PRN (00:38)
[2018-12-28] MEDS: VANCOMYCIN FOR PO/GT/NG USE NG SCH ×5 (00:39→23:04)
[2018-12-28 05:14] LABS: BASOPHILS % (AUTO) 0.1 % (0.0-2.0); HEMATOCRIT 33.3 % (36.7-47.1); LYMPHOCYTES # (AUTO) 1.8 K/uL (20.0-40.0); LYMPHOCYTES % (AUTO) 6.3 % (20.5-51.5); MEAN CORPUSCULAR HEMOGLOBIN 28.6 uug (23.8-33.4); MEAN CORPUSCULAR HGB CONC 33 g/dL (32.5-36.3); MEAN CORPUSCULAR VOLUME 86.8 fL (73.0-96.2); MONOCYTES # (AUTO) 1.3 K/uL (2.0-10.0); MONOCYTES % (AUTO) 4.7 % (0.0-11.0); NEUTROPHILS # (AUTO) 24.9 K/uL (1.8-8.9); NEUTROPHILS % (AUTO) 88.9 % (38.5-71.5); PLATELET COUNT (AUTO) 493 K/uL (152-348); RED BLOOD CELL COUNT(AUTO) 3.83 MIL/uL (4.06-5.63)
[2018-12-28 05:15] LABS: CREATININE 0.8 mg/dL (0.6-1.3); PHOSPHOROUS 2.6 mg/dL (2.5-4.9)
[2018-12-28] MEDS: MEROPENEM 1 G in IV NORMAL SALINE 100 ML IV SCH ×3 (05:58→22:30)
[2018-12-28] MEDS: HYDROCORTISONE SOD SUCCINATE 100 MG/2 ML VIAL IV SCH ×3 (06:00→22:31)
[2018-12-28] MEDS: LEVOTHYROXINE SODIUM 150 MCG TABLET NG SCH (07:31)
[2018-12-28] MEDS: ACIDOPHILUS/BULGARICUS CHEW TAB NG SCH ×2 (08:14→20:06)
[2018-12-28] MEDS: PANTOPRAZOLE SODIUM 40 MG VIAL IV SCH (08:14)
[2018-12-28] MEDS: LACOSAMIDE 100 MG/10 ML UDC XX SCH ×2 (08:14→20:06)
--- NOTE | 2018-12-28 08:28 | NUR ---
PT RECEIVED ON BUTT VENT TOLERATING CURRENT VENT SETTINGS FINE WITH NO DISTRESS. VENT ALARMS SET AND AUDIBLE. VENT PLUGGED IN RED OUTLET. PT IS WITHOUT GAG REFLEX. BREATH SOUNDS CLEAR WITH NO SECRETIONS. ORAL CARE DONE.
--- NOTE | 2018-12-28 08:30 | NUR ---
Pulmonary services Dr. Hartman in the unit to examine pt. full report given, orders for a 2nd EEG received.
[2018-12-28] MEDS: NUTRISOURCE FIBER 4 GM PACKET GT SCH (08:42)
--- NOTE | 2018-12-28 10:30 | NUR ---
Patient with a period of desaturation down to 88-87 and unable to bring it up. RT at bedside and at this time FIO@ up to 50% with no improvement and left up to 70% with saturation reaching 91-92%.
--- NOTE | 2018-12-28 10:47 | NUR ---
FIO2 INCREASED TO 70% DUE TO PT SPO2 DROPPING BELOW 92%. PT SPO2 IS NOW MAINTAINED AT 92%. WILL CONTINUE TO MONITOR
--- NOTE | 2018-12-28 11:30 | NUR ---
Dr. Federico Harry in the unit to meet with pt's mother Ms Winter and pt's Sister Berta. Dr. Caballero had a long meeting discussing care plan. floorworker distributor Eliel also part of the meeting and all of them aware of pending EEG for this afternoon.
--- NOTE | 2018-12-28 13:37 | NUR ---
11:30am: Family conference held with patient's sister Berta and mother Chelsea. Present at the conference were MOHAMUD Box, vandana Yeung, Client Experience Administrator Laura, and Dr. Federico Miller. Dr. Miller discussed patient's medical condition, prognosis, treatment plan, and pending EEG with the family. Dr. Miller answered the family's questions/concerns. Per family's request, information was provided to them regarding [facility] CODE SECTION 7180. SW then met with patient's sister and mother separately, allowed them time to express their thoughts and feelings, validated and normalized their feelings, and provided them with supportive counseling. SW also provided the family with education on the stages of grief and loss, and offered them clergy services. Family was receptive to SW, and expressed wanting to hold off on clergy services until final test results are in. SW supported their choice. SW to follow-up with family as needed, and to provide appropriate interventions.
--- NOTE | 2018-12-28 13:47 | NUR ---
VENT SETTING CHANGES MADE DUE TO PT SPO2 FALLING BELOW 88%. PT IS NOW ON 100% FIO2 WITH A PEEP OF 10. SPO2 MAINTAINED WITHIN NORMAL LIMITS.
[2018-12-28] MEDS ORDERED: GLUCERNA 1.2 1000ML LIQUID GT PRN (15:30)
--- NOTE | 2018-12-28 17:25 | NUR ---
RT Russell in the unit PEEP down to 8. patient tolerating well saturation remains above 95%.
--- NOTE | 2018-12-28 17:25 | NUR ---
Raised inspiratory time to 30, lowered PEEP to 8, MOHAMUD De Oliveira notified.. SpO2 100%, will continue to monitor..
--- NOTE | 2018-12-28 19:45 | NUR ---
Received pt nonverbal, pupils fixed and dilated, unable to follow simple commands. Upper and lower extremities flaccid. Pt orally intubated, vent settings: AC 14, TV 500, PEEP 8, FiO2 100%. Respirations easy, O2 sat up to 99%. VSS, afebrile. Levophed drip running at 2 mcg/min. Pt tolerating GTube feedings fairly well. F/C and FlexiSeal in place. Antibiotic therapy noted. Aspiration and seizure precautions observed. Turned and repositioned. Keep pt clean and dry. Will continue to monitor closely. Addendum: 12/28/18 at 2109 by RIDDHI WORLEY RN Amended: Links added.
[2018-12-28] MEDS: NOREPINEPHRINE BITARTRATE 16 MG in IV DEXTROSE 5% 500 ML IV PRN (20:15)
--- NOTE | 2018-12-28 20:41 | NUR ---
EEG started. Continue to monitor.
--- NOTE | 2018-12-28 22:15 | NUR ---
EEG test completed. Will continue plan of care.
--- NOTE | 2018-12-28 23:54 | NUR ---
Pt rectal temp 95.1. Placed Shu Hugger on high mode 43 degrees C. Will continue to monitor VS, temperature and level of comfort.
[2018-12-29] VITALS (90 sets, daily range): BP systolic 84–149; BP diastolic 45–102
[2018-12-29] MEDS: GLUCERNA 1.2 1000ML LIQUID GT PRN ×2 (00:25→09:28)
--- NOTE | 2018-12-29 01:03 | NUR ---
Pt oral temp 97.4 F, Shu Hugger mode down to 38 degrees C. Will maintain body temperature and continue to monitor.
[2018-12-29] MEDS: IV NORMAL SALINE 250 ML IV PRN (02:05)
--- NOTE | 2018-12-29 03:44 | NUR ---
RECEIVED PATIENT ORALLY INTUBATED WITH A SIZE 7.5 ET TUBE. PATIENT IS ON A BUTT VENT WITH THE FOLLOWING SETTINGS THAT ARE CHARTED ON THE MECHANICAL VENT NOTES. ETT IS SECURED WITH THE ANCHOR FAST AT APPROX 23 AT THE LIP LINE. AMBU BAG IS BY BEDSIDE. SUCTIONED SMALL WHITE AND YELLOW SECRETIONS. VENTILATOR ALARMS CHECKED AND THEY ARE ON AND AUDIBLE. VENTILATOR IS PLUGGED IN THE RED OUTLET. PATIENT IS TOLERATING CURRENT VENTILATOR SETTINGS WELL AT THIS TIME WITH NO SOB NOTED AT THIS TIME. WILL CONTINUE TO MONITOR.
--- NOTE | 2018-12-29 04:45 | NUR ---
AM care rendered, oral care done. Pt kept clean and dry, turned and repositioned. Pt off Shu Hugger, temperature WNL. Oral temp 97.5 F at this time. Pt tolerating current vent settings: AC 14, TV 500, PEEP 5, FiO2 80%. O2 Sats > 94%. HOB elevated maintained, aspiration and seizure precautions observed. Plan for apnea test in AM. Will continue to monitor.
--- NOTE | 2018-12-29 04:49 | NUR ---
INFORMATION SENT: FACESHEET,24 HOURS REPORT,PROGRESS NOTES 12/28,UR 12/28 INSURANCE NAME: [facility] FAX NUMBER: [phone] / [phone] FAX SENT
[2018-12-29] MEDS: MEROPENEM 1 G in IV NORMAL SALINE 100 ML IV SCH ×3 (05:01→21:50)
[2018-12-29] MEDS: VANCOMYCIN FOR PO/GT/NG USE NG SCH ×4 (05:01→23:23)
[2018-12-29] MEDS: HYDROCORTISONE SOD SUCCINATE 100 MG/2 ML VIAL IV SCH ×3 (05:03→21:51)
[2018-12-29 05:18] LABS: CREATININE 1.1 mg/dL (0.6-1.3); MAGNESIUM 3.4 mg/dL (1.8-2.4); PHOSPHOROUS 2.3 mg/dL (2.5-4.9); POTASSIUM 3.9 mmol/L (3.5-5.1)
[2018-12-29] MEDS: BLOOD SUGAR DIAGNOSTIC 1 EACH STRIP VI SCH ×4 (05:18→23:23)
[2018-12-29 05:24] LABS: BASOPHILS % (AUTO) 0.1 % (0.0-2.0); HEMATOCRIT 34.8 % (36.7-47.1); HEMOGLOBIN 11.1 g/dL (12.5-16.3); LYMPHOCYTES # (AUTO) 1.5 K/uL (20.0-40.0); MEAN CORPUSCULAR HEMOGLOBIN 28.8 uug (23.8-33.4); MEAN CORPUSCULAR HGB CONC 32 g/dL (32.5-36.3); MEAN CORPUSCULAR VOLUME 90.1 fL (73.0-96.2); MONOCYTES % (AUTO) 6.6 % (0.0-11.0); NEUTROPHILS % (AUTO) 88.3 % (38.5-71.5); PLATELET COUNT (AUTO) 424 K/uL (152-348); RED BLOOD CELL COUNT(AUTO) 3.86 MIL/uL (4.06-5.63); WHITE BLOOD COUNT (AUTO) 29.5 K/uL (3.6-10.2)
--- NOTE | 2018-12-29 05:50 | NUR ---
Critical value: SODIUM 170 and CHLORIDE 130. On-call JABARI YUNG made notified. Order of 2L D5W bolus once now, DDAVP 0.3 mcg BID, and serum sodium blood draw BID. Will continue plan of care.
[2018-12-29] MEDS ORDERED: DEXTROSE IV ONE (06:00)
[2018-12-29] MEDS: LEVOTHYROXINE SODIUM 150 MCG TABLET NG SCH (06:29)
[2018-12-29] MEDS ORDERED: D5W IV ONE (06:30)
--- NOTE | 2018-12-29 06:40 | NUR ---
called and spoked with maribel ERVIN dictated abg ,v/s and patient mentation as per md Dioni ERVIN to call ER PHYSICIAN and to intubate patient called respiratory therapist and call respiratory therapist for stat intubation . Addendum: 12/29/18 at 0703 by DARCIE CASTILLO RN WRONG PATIENT .
--- NOTE | 2018-12-29 07:00 | NUR ---
RT PT RECEIVED ON BUTT VENT SETTING OF AC 14 VT 500 PEEP +5 65%. PT VENT CHECK WAS DONE PT ET-TUBE SECURED AND INTACT WITH ANCHOR FAST. PT WAS SUCTION. PT ORAL CARE WAS DONE HME WAS CHANGED. PT MORNING ABG TO BE DONE. PT HAS NO TX ORDER. PT ALARMS ON AND AUDIBLE WILL CONTINUE TO MONITOR PT.
--- NOTE | 2018-12-29 07:30 | NUR ---
Report RECEIVED FROM MOHAMUD Pineda. 28 yr old male was admitted on 12/15/18 s/p CPA from ARU. patient remains unresponsive, with pupils fixed and dilated, no purposeful movement, remains orally intubated to vent tv 500, ac 14, peep 5 fio2 65%. alvares catheter intact, with large amount of urine output. had fluid bolus of 2 liters d5W for sodium 170. still having diarrhea, flexiseal intact Addendum: 12/29/18 at 0959 by MARGARITA OSHEA RN Amended: Links added.
[2018-12-29] MEDS ORDERED: DESMOPRESSIN 0.1 MG TABLET GT SCH ×2 (08:00→09:00)
[2018-12-29 08:30] LABS: ABG BASE EXCESS 9.5 mmol/L; ABG HCO3 35.1 mmol/L; ABG PCO2 52.6 mmHg (35.0-45.0); ABG PH 7.442 (7.350-7.450); ABG PO2 128.6 mmHg (75.0-100.0); ABG SITE LEFT RADIAL; ABG TOTAL HEMOGLOBIN 11.1 G/dL (13.5-18.0); MetHb 0.2 % (0.0-1.5); O2Hb 97.6 % (94.0-97.0); VENT MODE VENT - A/C; VT, ABG 500 mL
[2018-12-29] MEDS: PANTOPRAZOLE SODIUM 40 MG VIAL IV SCH (08:37)
[2018-12-29] MEDS: LACOSAMIDE 100 MG/10 ML UDC XX SCH ×2 (08:37→20:31)
[2018-12-29] MEDS: PROTEIN SUPPLEMENT (PROSTAT) 30 ML LIQUID GT SCH (08:37)
[2018-12-29] MEDS: NUTRISOURCE FIBER 4 GM PACKET GT SCH (08:39)
[2018-12-29] MEDS: ACIDOPHILUS/BULGARICUS CHEW TAB NG SCH ×2 (08:40→20:31)
--- NOTE | 2018-12-29 10:00 | NUR ---
seen by Dr Miller. apnea test ordered and initiated by RT. seen by dr Hartman. apnea test cancelled secondary to high sodium. Addendum: 12/29/18 at 1127 by MARGARITA OSHEA RN Amended: Links added. Addendum: 12/29/18 at 1128 by MARGARITA OSHEA RN Amended: Links added.
--- NOTE | 2018-12-29 10:24 | NUR ---
RT PT APNEA TEST WAS STARTED AT THIS TIME PT WAS PLACE ON FIO2 100%, WILL KEEP PT ON 100% FOR 30MIN AND WILL DRAW ABG. RN AWARE OF APNEA TEST START TIME.
--- NOTE | 2018-12-29 10:40 | NUR ---
RT PT APNEA TEST WAS TERMINATED AT THIS TIME PER DR LOPEZ DUE TO HIGH SODIUM LEVEL. PT WAS PLACE BACK ON 65% FIO2. PT VT WAS INCREASE TO 550 PER MD ORDER. RN AWARE OF CHANGES WILL RESUME APNEA TEST TOMORROW PER MD.
--- NOTE | 2018-12-29 11:28 | NUR ---
dr swanson informed that apnea test was cancelled till patient is more stable. Addendum: 12/29/18 at 1128 by MARGARITA OSHEA RN Amended: Links added.
[2018-12-29 12:01] LABS: POTASSIUM 3.8 mmol/L (3.5-5.1)
--- NOTE | 2018-12-29 12:27 | NUR ---
miguel ángel 65, no insulin coverage Addendum: 12/29/18 at 1228 by MARGARITA OSHEA RN Amended: Links added.
--- NOTE | 2018-12-29 14:08 | NUR ---
call to dr Angelina ramirez sodium 166 and chloride 127 Addendum: 12/29/18 at 1409 by MARGARITA OSHEA RN Amended: Main added. Addendum: 12/29/18 at 1410 by MARGARITA OSHEA RN Amended: Main added.
--- NOTE | 2018-12-29 14:35 | NUR ---
dr lundy returned call. orders received Addendum: 12/29/18 at 1435 by MARGARITA OSHEA RN Amended: Links added.
[2018-12-29] MEDS ORDERED: DESMOPRESSIN INJ 30 MCG in IV NORMAL SALINE 50 ML IV SCH (15:00)
[2018-12-29] MEDS: IV D5W 1000ML 1,000 ML IV PRN (15:26)
[2018-12-29] MEDS ORDERED: NEUTRA PHOS PACKET GT ONE (17:00)
--- NOTE | 2018-12-29 17:00 | NUR ---
RT PT REMAINS ON VENT AT THIS TIME. PT WAS HAS NO CHANGES MADE . PT APNEA TO RESUME ON 12/30/18 PER MD . PT WAS SUCTION WILL CONTINUE TO MONITOR. ALARMS ON AND AUDIBLE . PT HAS NO DISTRESS NOTED.
--- NOTE | 2018-12-29 17:43 | NUR ---
CLAUDIA 116. NO INSULIN COVERAGE Addendum: 12/29/18 at 1743 by MARGARITA OSHEA RN Amended: Links added.
[2018-12-29] MEDS ORDERED: NOREPINEPHRINE BITARTRATE 8 MG in IV DEXTROSE 5% 500 ML IV PRN (18:00)
--- NOTE | 2018-12-29 18:00 | NUR ---
blood drawn for bmp. Addendum: 12/29/18 at 1847 by MARGARITA OSHEA RN Amended: Main added. Addendum: 12/29/18 at 1854 by MARGARITA OSHEA RN Amended: Main added.
[2018-12-29 18:41] LABS: POTASSIUM 3.9 mmol/L (3.5-5.1)
--- NOTE | 2018-12-29 18:54 | NUR ---
call to Nephrology re high sodium 163. dr Avila reiki practitioner. message left to call back Addendum: 12/29/18 at 1854 by MARGARITA OSHEA RN Amended: Links added.
--- NOTE | 2018-12-29 18:58 | NUR ---
dr sexton returned call. orders received. bmp already ordered for am. Addendum: 12/29/18 at 1859 by MARGARITA OHSEA RN Amended: Links added.
--- NOTE | 2018-12-29 19:15 | NUR ---
report given to Alvaro RN Addendum: 12/29/18 at 1915 by MARGARITA OSHEA RN Amended: Links added.
[2018-12-29] MEDS: NOREPINEPHRINE BITARTRATE 8 MG in IV DEXTROSE 5% 500 ML IV PRN (19:59)
--- NOTE | 2018-12-29 20:00 | NUR ---
RECEIVED PT. NONRESPONSIVE TO ANY NOXIOUS STIMULI. ORALLY INTUBATED TO VENT W/ SETTINGS OF AC-14,TV-550, FIO2-65%, PEEP-+5 W/ O2 SAT OF 100%. ORAL GASTRIC TUBE INTACT, CHECKED FOR RESIDUAL 20CC NOTED, ON TUBE FDG OF GLUCERNA 1.2 @ 70CC/HR. IVF OF D5W @ 100CC/HR VIA PICC LINE ON GAMAL. ON LEVOPHED DRIP @ 3MCQ/MIN.. NS @ TKO RATE FOR IVPB. REPOSITIONED TO HIS SIDE W/ HOB ELEVATED SUCTIONED ORALLY & VIA ETT W/ MINIMAL TANNISH THIN MUCOUS. AFEBRILE.
[2018-12-29] MEDS: DESMOPRESSIN 4 MCG/1 ML VIAL SUBCUT SCH (20:32)
--- NOTE | 2018-12-29 21:22 | NUR ---
PT RECEIVED ON BUTT VENT SETTING OF AC 14 VT 550 PEEP +5 65%. PT VENT CHECK WAS DONE PT ET-TUBE SECURED AND INTACT WITH ANCHOR FAST. PT WAS SUCTION. NO TX ORDER. PT ALARMS ON AND AUDIBLE WILL CONTINUE TO MONITOR PT.
[2018-12-30] VITALS (50 sets, daily range): BP systolic 13–141; BP diastolic 42–97
--- NOTE | 2018-12-30 | NUR ---
HS CARE DONE. SUCTIONED & REPOSITIONED W/ HOB ELEVATED.
[2018-12-30] MEDS: GLUCERNA 1.2 1000ML LIQUID GT PRN (00:59)
[2018-12-30] MEDS: IV D5W 1000ML 1,000 ML IV PRN ×3 (01:46→21:50)
[2018-12-30] MEDS: IV NORMAL SALINE 250 ML IV PRN (03:25)
--- NOTE | 2018-12-30 04:00 | NUR ---
AM CARE DONE. ORAL CARE DONE. REPOSITIONED ON HIS SIDE W/ HOB ELEVATED.
[2018-12-30 04:33] LABS: BASOPHILS % (AUTO) 0.2 % (0.0-2.0); EOSINOPHILS % (AUTO) 0.1 % (0.0-7.0); LYMPHOCYTES # (AUTO) 2.1 K/uL (20.0-40.0); MEAN CORPUSCULAR HEMOGLOBIN 28.5 uug (23.8-33.4); MEAN CORPUSCULAR HGB CONC 31 g/dL (32.5-36.3); MEAN CORPUSCULAR VOLUME 90.9 fL (73.0-96.2); MONOCYTES # (AUTO) 1.7 K/uL (2.0-10.0); MONOCYTES % (AUTO) 7.4 % (0.0-11.0); NEUTROPHILS # (AUTO) 19.1 K/uL (1.8-8.9); NEUTROPHILS % (AUTO) 83.3 % (38.5-71.5); PLATELET COUNT (AUTO) 376 K/uL (152-348); RED BLOOD CELL COUNT(AUTO) 3.52 MIL/uL (4.06-5.63)
[2018-12-30 04:40] LABS: CREATININE 0.8 mg/dL (0.6-1.3); MAGNESIUM 2.3 mg/dL (1.8-2.4); PHOSPHOROUS 2.2 mg/dL (2.5-4.9); POTASSIUM 3.4 mmol/L (3.5-5.1)
[2018-12-30] MEDS: VANCOMYCIN FOR PO/GT/NG USE NG SCH ×4 (05:49→23:16)
[2018-12-30] MEDS: HYDROCORTISONE SOD SUCCINATE 100 MG/2 ML VIAL IV SCH ×3 (05:49→21:25)
[2018-12-30] MEDS: MEROPENEM 1 G in IV NORMAL SALINE 100 ML IV SCH ×3 (05:50→21:24)
--- NOTE | 2018-12-30 06:00 | NUR ---
OFF TUBE FDG, WILL RESUME @ 1000.
[2018-12-30] MEDS: BLOOD SUGAR DIAGNOSTIC 1 EACH STRIP VI SCH ×4 (06:09→23:21)
--- NOTE | 2018-12-30 07:00 | NUR ---
PT RECEIVED ORALLY INTUBATED WITH A SIZE 7.5 ETT SECURED WITH ANCHOR-FAST APPROX. 25CM AT THE LIP. PT IS ON A BUTT VENT ON SETTINGS OF A/C 14, VT 550, PEEP +5, AND 65% FIO2. VENT PARAMETERS AND ALARMS CHECKED, ALARMS ARE AUDIBLE. HME CHANGED. PT DOES NOT RESPOND TO STIMULI, NO GAG REFLEX WITH DEEP ETT SUCTION. PT IS TOLERATING VENT SETTINGS WELL, NO RESP. DISTRESS NOTED AT THIS TIME. AMBU-BAG AT BEDSIDE. VENT PLUGGED INTO RED OUTLET. SUCTION PRN. WILL CONTINUE TO MONITOR.
--- NOTE | 2018-12-30 07:30 | NUR ---
Patient, temp 97.4 orally. Patient pupils dialated with no response. He is flaccid throughout entire body. No reflex noted. SR on monitor HR 61/min. On vent to oral ETT with settings AC 14, TV 550, FI02 65%. GT on hold, and will resume at 10AM. Flexecele in place, and draining minimal amount of feces. FC to gravity with franklyn color urine, urine output QS. Pulses palpable all extremities, faint. Total care patient, and repositioned to comfort. Jerrod Tiwari RN
--- NOTE | 2018-12-30 08:00 | NUR ---
Patient on levophed @ 2mcg/min, and sbp >130, and titrated down to 1mcg/min. Jerrod Tiwari RN
[2018-12-30] MEDS: LEVOTHYROXINE SODIUM 150 MCG TABLET NG SCH (08:29)
[2018-12-30] MEDS: ACIDOPHILUS/BULGARICUS CHEW TAB NG SCH ×2 (08:29→20:36)
[2018-12-30] MEDS: PROTEIN SUPPLEMENT (PROSTAT) 30 ML LIQUID GT SCH (08:29)
[2018-12-30] MEDS: LACOSAMIDE 100 MG/10 ML UDC XX SCH ×2 (08:29→20:36)
[2018-12-30] MEDS: PANTOPRAZOLE SODIUM 40 MG VIAL IV SCH (08:29)
[2018-12-30] MEDS: NUTRISOURCE FIBER 4 GM PACKET GT SCH (08:31)
--- NOTE | 2018-12-30 09:00 | NUR ---
Levophed drip @ 1 mcg/min, sbp 139, and turned off, will continue to monitor bp. Jerrod Tiwari RN
[2018-12-30] MEDS: DESMOPRESSIN 4 MCG/1 ML VIAL SUBCUT SCH ×2 (09:56→20:36)
[2018-12-30] MEDS: INSULIN REGULAR, HUMAN 300 UNIT/3 ML VIAL SQ PRN (11:42)
--- NOTE | 2018-12-30 12:30 | NUR ---
Dr Miller visits patient, updated on present condition, and orders written. Patient apnea test pending tomorrow, per sodium result. Jerrod Tiwari RN
[2018-12-30] MEDS ORDERED: POTASSIUM CHLORIDE 20 MEQ POWDER PACKET GT ONE (14:00)
--- NOTE | 2018-12-30 14:15 | NUR ---
Mita LYN[facility] Infectious Disease visits patient, updated on present condition, see note. Jerrod Tiwari RN
[2018-12-30] MEDS ORDERED: NEUTRA PHOS PACKET GT ONE (15:45)
--- NOTE | 2018-12-30 16:00 | NUR ---
Patient temp 94.3, orally, although he feels warm unable to register a normal temp. Repositioned to comfort. Patient does not respond to tactile stimulation, no cough or siena reflex. Jerrod Tiwari RN
--- NOTE | 2018-12-30 19:35 | NUR ---
Received pt on Costa ventilator with the following settings of AC-14, Vt-550, PEEP+5, FIO2-50%, orally intubated with 7.5 ETT~23cm at lip line. No s/s of respiratory distress noted. Airway care done, pt did not respond to physical stimuli. Resus. bag at bedside. ETT moved to the left. Vent and alarms checked and reset.
--- NOTE | 2018-12-30 20:00 | NUR ---
RECEIVED PT NONRESPONSIVE TO ANY NOXIOUS STIMULI. ORALLY INTUBATED TO VENT W/ SETTINGS OF AC-14, TV-550, FIO2-50%, PEEP-+5, W/ O2 SAT OF 99%. ORAL GASTRIC TUBE INTACT CHECKED PLACEMENT & CHECKED RESIDUAL 10CC NOTED. ON TUBE FDG OF GLUCERNA 1.2 @ 70cc/hr.IVF D5W @ 100 CC/HR VIA PICC LINE ON GAMAL. NS @ 10CC/HR FOR IVPB MEDS. SUCTIONED VIA ETT & ORALLY W/ THICK MINIMAL TANNISH MUCOUS. TEMP-95.2 ORALLY, BEAR HUGGER APPLIED. REPOSITIONED ON HIS SIDE W/ HOB ELEVATED.
--- NOTE | 2018-12-30 21:00 | NUR ---
HS CARE DONE. ORAL CARE DONE. SUCTIONED & REPOSITIONED W/ HOB ELEVATED.
[2018-12-31] VITALS (27 sets, daily range): BP systolic 82–149; BP diastolic 39–109
[2018-12-31] MEDS: GLUCERNA 1.2 1000ML LIQUID GT PRN (03:07)
--- NOTE | 2018-12-31 04:00 | NUR ---
AM CARE DONE. ORAL CARE DONE. REPOSITIONED TO SIDE W/ HOB ELEVATED.
--- NOTE | 2018-12-31 05:00 | NUR ---
OFF TUBE FDG, WILL RESUME @ 1000.
[2018-12-31 05:12] LABS: CARBON DIOXIDE 31 mmol/L (21-32); CHLORIDE 105 mmol/L (98-107); CREATININE 0.7 mg/dL (0.6-1.3); PHOSPHOROUS 2.8 mg/dL (2.5-4.9); POTASSIUM 3.6 mmol/L (3.5-5.1); UREA NITROGEN, BLOOD 24 mg/dL (7-18)
[2018-12-31 05:24] LABS: GLUCOSE 330 mg/dL (74-106)
[2018-12-31] MEDS: VANCOMYCIN FOR PO/GT/NG USE NG SCH ×3 (05:30→17:59)
[2018-12-31] MEDS: BLOOD SUGAR DIAGNOSTIC 1 EACH STRIP VI SCH ×3 (05:30→18:17)
[2018-12-31] MEDS: INSULIN REGULAR, HUMAN 300 UNIT/3 ML VIAL SQ PRN (05:33)
[2018-12-31] MEDS: HYDROCORTISONE SOD SUCCINATE 100 MG/2 ML VIAL IV SCH ×3 (05:39→21:04)
[2018-12-31] MEDS: LEVOTHYROXINE SODIUM 150 MCG TABLET NG SCH (07:05)
[2018-12-31] MEDS: IV D5W 1000ML 1,000 ML IV PRN ×2 (07:50→17:59)
--- NOTE | 2018-12-31 08:00 | NUR ---
RECEIVED PT STABLE THIS MORNING. SUCTIONED FOR MODERATE AMOUNT OF WHITISH SECRETIONS. ORAL CARE DONE AND MOVED ET TUBE TO THE MIDDLE. WAITING FOR ORDERS.
[2018-12-31] MEDS: ACIDOPHILUS/BULGARICUS CHEW TAB NG SCH ×2 (08:27→20:01)
[2018-12-31] MEDS: DESMOPRESSIN 4 MCG/1 ML VIAL SUBCUT SCH ×2 (08:27→20:37)
[2018-12-31] MEDS: LACOSAMIDE 100 MG/10 ML UDC XX SCH ×2 (08:27→20:01)
[2018-12-31] MEDS: PANTOPRAZOLE SODIUM 40 MG VIAL IV SCH (08:27)
[2018-12-31] MEDS: PROTEIN SUPPLEMENT (PROSTAT) 30 ML LIQUID GT SCH (08:28)
[2018-12-31] MEDS: NUTRISOURCE FIBER 4 GM PACKET GT SCH (08:28)
--- NOTE | 2018-12-31 09:25 | NUR ---
CRIS Sneed here to see pt. Full report given. No new orders received.
--- NOTE | 2018-12-31 12:10 | NUR ---
Attending physician Dr. Caballero in the unit to see and examine patient, orders to proceed with apnea test received. RT Olit called for procedure and as reported patient placed on 100%FIO2 and ABG'S 1st of set of 2 ABG's drawn at this time.
--- NOTE | 2018-12-31 12:20 | NUR ---
STARTED THE APNEA TEST. PT WAS PLACED ON 100% FIO2 AND FABI BLOOD GAS POST 10 MINUTES.
--- NOTE | 2018-12-31 12:23 | NUR ---
Dr. Sher pulmonary serviced, in the unit to see and examine patient, report of pt's current apnea test given. See order hx.
[2018-12-31 12:27] LABS: ABG HCO3 33.1 mmol/L; ABG PCO2 53.9 mmHg (35.0-45.0); ABG PH 7.406 (7.350-7.450); ABG PO2 461.8 mmHg (75.0-100.0); ABG SITE RIGHT RADIAL; ABG TOTAL HEMOGLOBIN 12.2 G/dL (13.5-18.0); COHb 0.9 % (0.5-1.5); MetHb 0.1 % (0.0-1.5); O2Hb 98.7 % (94.0-97.0); VENT MODE VENT - A/C; VT, ABG 550 mL
--- NOTE | 2018-12-31 12:40 | NUR ---
PT TAKEN OFF VENT FOR 10 MINUTES WITH O2 TUBING PLACED INSIDE THE ET TUBE AT 8 LPM. ABG FOLLOWED RIGHT AFTER THE TEST AND RESULTS WERE SEEN BY DR. LEGER AND DR. SWANSON. PATIENT WAS PLACED ON THE ORIGINAL SETTINGS AFTER THE 10 MINUTES TEST.
--- NOTE | 2018-12-31 12:49 | NUR ---
Respiratory therapist and Dr. Gomez at the bedside for apnea test. After 10minutes at the bedside, no visible chest rise noted from the pt, but pt maintaining 100% SpO2. Dr. Caballero also at the bedside with Dr. Gomez. Full report given. Recheck ABG done by RT upon completion of test. Awaiting results.
[2018-12-31 13:06] LABS: ABG BASE EXCESS 9.4 mmol/L; ABG HCO3 40.8 mmol/L; ABG PCO2 112.7 mmHg (35.0-45.0); ABG PH 7.177 (7.350-7.450); ABG PO2 315.7 mmHg (75.0-100.0); ABG SITE RIGHT RADIAL; ABG TOTAL HEMOGLOBIN 10.5 G/dL (13.5-18.0); MetHb 0.4 % (0.0-1.5); O2Hb 98.3 % (94.0-97.0); VENT MODE Nasal Cannula
--- NOTE | 2018-12-31 13:20 | NUR ---
ABG results s/p apnea test reported to Dr. Caballero over the telephone. aware. Addendum: 12/31/18 at 1321 by ARUNA CLARK RN made aware and no new orders received.
--- NOTE | 2018-12-31 14:21 | NUR ---
Marleny from [facility] here to see pt. Full report given and updated with plan of care.
--- NOTE | 2018-12-31 16:55 | NUR ---
Faustina from [facility] here to see pt. Full report given to her. Faustina to follow care of pt as pt is good candidate for research per [facility].
--- NOTE | 2018-12-31 17:15 | NUR ---
Tanner from [facility] here to see pt. Machine Design Teacher made aware and granted him access to review and evaluate pt's chart and health information.
[2018-12-31] MEDS: IV NORMAL SALINE 250 ML IV PRN (19:56)
--- NOTE | 2018-12-31 20:05 | NUR ---
Pt received in semi bautista's, obtunded, and orally intubated with 7.5 ETT secured at 25cm lip line. Pt is on Costa vent with ordered settings of A/C-14, VT-550, PEEP+5, FIO2-50% Tolerating vent settings well. SpO2-100% Sxn'd and lavaged as needed. Sxn'd small amounts of white/clear secretions. Pt has no gag reflex. ETT secured with AnchorFast device. Good skin integrity noted, to area of application. ETT moved periodically to alternating side of mouth, per hospital policy. No signs or symptoms of respiratory distress noted. Oral care done. HME changed. Vent alarm parameters checked, on and audible. Bag/valve/mask at bedside. Vent plugged into red emergency outlet. Will continue to monitor Pt throughout shift.
[2018-12-31] MEDS ORDERED: NOREPINEPHRINE BITARTRATE 4 MG/4 ML VIAL IV ONE (21:34)
[2018-12-31] MEDS: NOREPINEPHRINE BITARTRATE 8 MG in IV DEXTROSE 5% 500 ML IV PRN (22:26)
[2019-01-01] VITALS (92 sets, daily range): BP systolic 88–143; BP diastolic 37–106
[2019-01-01] MEDS: BLOOD SUGAR DIAGNOSTIC 1 EACH STRIP VI SCH ×4 (00:08→17:27)
[2019-01-01] MEDS: VANCOMYCIN FOR PO/GT/NG USE NG SCH ×4 (00:08→17:27)
[2019-01-01] MEDS: INSULIN REGULAR, HUMAN 300 UNIT/3 ML VIAL SQ PRN ×2 (00:11→05:11)
[2019-01-01] MEDS: IV D5W 1000ML 1,000 ML IV PRN ×2 (04:00→14:00)
[2019-01-01 05:01] LABS: BASOPHILS % (AUTO) 0.1 % (0.0-2.0); EOSINOPHILS % (AUTO) 0.1 % (0.0-7.0); HEMATOCRIT 24.3 % (36.7-47.1); HEMOGLOBIN 8.1 g/dL (12.5-16.3); LYMPHOCYTES # (AUTO) 1.3 K/uL (20.0-40.0); LYMPHOCYTES % (AUTO) 11.5 % (20.5-51.5); MEAN CORPUSCULAR HEMOGLOBIN 29.2 uug (23.8-33.4); MEAN CORPUSCULAR HGB CONC 33 g/dL (32.5-36.3); MEAN CORPUSCULAR VOLUME 87.9 fL (73.0-96.2); MONOCYTES # (AUTO) 0.3 K/uL (2.0-10.0); NEUTROPHILS # (AUTO) 9.3 K/uL (1.8-8.9); NEUTROPHILS % (AUTO) 85.3 % (38.5-71.5); PLATELET COUNT (AUTO) 271 K/uL (152-348); RED BLOOD CELL COUNT(AUTO) 2.76 MIL/uL (4.06-5.63); WHITE BLOOD COUNT (AUTO) 10.9 K/uL (3.6-10.2)
[2019-01-01] MEDS: HYDROCORTISONE SOD SUCCINATE 100 MG/2 ML VIAL IV SCH ×3 (05:08→21:38)
[2019-01-01 05:49] LABS: CARBON DIOXIDE 32 mmol/L (21-32); CHLORIDE 103 mmol/L (98-107); CREATININE 0.5 mg/dL (0.6-1.3); GLUCOSE 144 mg/dL (74-106); MAGNESIUM 1.8 mg/dL (1.8-2.4); POTASSIUM 3.2 mmol/L (3.5-5.1); UREA NITROGEN, BLOOD 23 mg/dL (7-18)
--- NOTE | 2019-01-01 07:30 | NUR ---
report received from Umesh, patient 28 yr old male was admitted on 12/15/09 post cardiopulmonary arrest in ARU. patient had been unresponsive, no reflexes, no spontaeous breathing, no spontaneous movement.. had failed apnea test, and third eeg being no brain activity. orally intubated. ett to vent tv 550, ac 14, peep 5, fio2 50%. IV fluid d5w at 100ml/hr and levophed drip at 0.5mcg/min . PICC line upper arm intact. alvares catheter intact, ogt intact. ekg sinus yanelis at 45/min.[facility] already involved for possible organ and tissue donation Addendum: 01/01/19 at 0800 by MARGARITA OSHEA RN Amended: Links added.
--- NOTE | 2019-01-01 07:35 | NUR ---
INFORMATION SENT: FACESHEET,IMAGING,24 HOURS REPORT,PROGRESS NOTES 12/29,12/30,12/31,UR 12/29,12/30,12/31 [facility]URANCE [facility] FAX NUMBER: [phone] / [phone] FAX SENT
--- NOTE | 2019-01-01 08:00 | NUR ---
primitivo harvey for [facility] 90.3 Addendum: 01/01/19 at 0943 by MARGARITA OSHEA RN Amended: Main added. Addendum: 01/01/19 at 09 by MARGARITA OSHEA RN Amended: Main added. Addendum: 01/01/19 at 0946 by MARGARITA OSHEA RN Amended: Links added.
[2019-01-01] MEDS: PROTEIN SUPPLEMENT (PROSTAT) 30 ML LIQUID GT SCH (08:10)
[2019-01-01] MEDS: LEVOTHYROXINE SODIUM 150 MCG TABLET NG SCH (08:10)
[2019-01-01] MEDS: LACOSAMIDE 100 MG/10 ML UDC XX SCH ×2 (08:11→21:38)
[2019-01-01] MEDS: PANTOPRAZOLE SODIUM 40 MG VIAL IV SCH (08:11)
[2019-01-01] MEDS: ACIDOPHILUS/BULGARICUS CHEW TAB NG SCH ×2 (08:11→21:38)
--- NOTE | 2019-01-01 09:00 | NUR ---
seen by dr Hartman with new orders. ac to 18 and fio2 down to 40% Addendum: 01/01/19 at 0944 by MARGARITA OSHEA RN Amended: Links added. Addendum: 01/01/19 at 0946 by MARGARITA OSHEA RN Amended: Links added.
--- NOTE | 2019-01-01 09:05 | NUR ---
increased RR to 18 and titrate O2 to 40% to maintain Spo2 >= to 94% per MD order
[2019-01-01] MEDS: GLUCERNA 1.2 1000ML LIQUID GT PRN (09:15)
[2019-01-01] MEDS: NUTRISOURCE FIBER 4 GM PACKET GT SCH (09:15)
--- NOTE | 2019-01-01 10:24 | NUR ---
[facility] here and patients chart reviewed. Addendum: 01/01/19 at [facility] by MARGARITA OSHEA RN Amended: Links added.
--- NOTE | 2019-01-01 10:30 | NUR ---
family conference held with Dr Miller in attendance. Addendum: 01/01/19 at 1314 by MARGARITA OSHEA RN Amended: Links added.
--- NOTE | 2019-01-01 11:15 | NUR ---
10:45am: Family present at bedside (mother Maggy Tran, both daughters Berta and Josefina, and patient's daughter's mother). Dr. Federico Harry, this SW, MOHAMUD Gauthier, and MOHAMUD Muhammad met with the family. Dr. Federico Harry discussed patient's condition and prognosis with the family. Grief counseling was provided to the family by this SW. Clergy services were offered, and family stated they will let SW know if they want SW to call clergy. Family does not have mortuary arrangements at this time, and SW stated that she can provide resources for them. Family agreed. SW requested coffee/tea/snack cart from cafeteria for the family.
[2019-01-01] MEDS: DESMOPRESSIN 4 MCG/1 ML VIAL SUBCUT SCH ×2 (11:24→21:39)
--- NOTE | 2019-01-01 12:19 | NUR ---
11:40am: Patient's sister Berta and patient's daughter's mother Diana wanted to meet with this SW to discuss mortuary and options. SW met with them and provided them with a list of mortuaries and homes throughout the [facility]. SW answered their questions as best as possible, regarding burial vs cremation, and also referred them to the list to call a few mortuaries and cremation agencies to learn more about the options and services available for them. SW also provided them with education on the stages of grief, allowed them time to express their thoughts and feelings, normalized and validated their feelings, and provided supportive counseling. Resources for grief support groups provided to the family: 1) [facility]: [address] [place] [address]; [phone]. 2) Grief Support Resources for parents and families: [facility] [address], [place] [address]; [phone] 3) [facility] Department Grief Support Information: a list of support groups in all [facility]s throughout [facility] was provided to the family. A copy of all the resources provided to the family was filed in patient's chart.
--- NOTE | 2019-01-01 12:30 | NUR ---
accucheck 116, no insulin coverage Addendum: 01/01/19 at 1230 by MARGARITA OSHEA RN Amended: Links added.
[2019-01-01] MEDS ORDERED: POTASSIUM CHLORIDE 20 MEQ POWDER PACKET GT ONE (14:30)
--- NOTE | 2019-01-01 14:44 | NUR ---
k3.2 replaced per pharmacy protocol Addendum: 01/01/19 at 1444 by MARGARITA OSHEA RN Amended: Links added.
--- NOTE | 2019-01-01 16:42 | NUR ---
temp98.4. primitivo meraz pm care done.repositioned Addendum: 01/01/19 at 1642 by MARGARITA OSHEA RN Amended: Links added.
--- NOTE | 2019-01-01 17:31 | NUR ---
patient was pronounced brain by 2 physicins. abdulkadir ruiz and dr Gomez documented in chart. family is aware. [facility] talking with family Addendum: 01/01/19 at 1731 by MARGARITA OSHEA RN Amended: Links added.
--- NOTE | 2019-01-01 17:56 | NUR ---
family requested keep patient intubated with pressors till decision for organ and tissue donation is made. dr Govea is aware. tube fdg will be dcd, continue rest of meds Addendum: 01/01/19 at 1756 by MARGARITA OSHEA RN Amended: Links added.
--- NOTE | 2019-01-01 19:26 | NUR ---
report given to Anita RN Addendum: 01/01/19 at 1926 by MARGARITA OSHEA RN Amended: Links added.
--- NOTE | 2019-01-01 20:15 | NUR ---
Pt received orally intubated with 7.5 ETT secured at approximately 25cm at the lip line. Pt is on Costa vent with settings of AC 18, VT 550, Peep +5, FiO2 50%. Suctioned small amount of white/clear secretions. Pt has no gag reflex. ETT secured with AnchorFast device. Good skin integrity noted to area of application. Vent alarm parameters checked, functioning and audible. Ambu-bag at bedside. Vent plugged into red emergency outlet. Will continue to monitor pt throughout shift.
[2019-01-01] MEDS: NOREPINEPHRINE BITARTRATE 8 MG in IV DEXTROSE 5% 500 ML IV PRN (22:22)
[2019-01-02] VITALS (50 sets, daily range): BP systolic 95–141; BP diastolic 41–103
[2019-01-02] MEDS: IV D5W 1000ML 1,000 ML IV PRN ×2 (00:35→11:35)
[2019-01-02] MEDS: VANCOMYCIN FOR PO/GT/NG USE NG SCH ×3 (00:36→11:44)
[2019-01-02] MEDS: BLOOD SUGAR DIAGNOSTIC 1 EACH STRIP VI SCH ×3 (00:37→11:45)
--- NOTE | 2019-01-02 02:26 | NUR ---
May from [facility] called; updated on the pt's status.
[2019-01-02 05:16] LABS: BASOPHILS % (AUTO) 0.2 % (0.0-2.0); EOSINOPHILS % (AUTO) 0.3 % (0.0-7.0); HEMATOCRIT 24.2 % (36.7-47.1); LYMPHOCYTES % (AUTO) 17.6 % (20.5-51.5); MEAN CORPUSCULAR HEMOGLOBIN 28.4 uug (23.8-33.4); MEAN CORPUSCULAR HGB CONC 33 g/dL (32.5-36.3); MEAN CORPUSCULAR VOLUME 85.8 fL (73.0-96.2); MONOCYTES # (AUTO) 0.5 K/uL (2.0-10.0); MONOCYTES % (AUTO) 4.7 % (0.0-11.0); NEUTROPHILS # (AUTO) 8.7 K/uL (1.8-8.9); NEUTROPHILS % (AUTO) 77.2 % (38.5-71.5); PLATELET COUNT (AUTO) 260 K/uL (152-348); RED BLOOD CELL COUNT(AUTO) 2.82 MIL/uL (4.06-5.63); WHITE BLOOD COUNT (AUTO) 11.2 K/uL (3.6-10.2)
[2019-01-02 05:18] LABS: CARBON DIOXIDE 27 mmol/L (21-32); CHLORIDE 99 mmol/L (98-107); CREATININE 0.6 mg/dL (0.6-1.3); GLUCOSE 98 mg/dL (74-106); MAGNESIUM 1.6 mg/dL (1.8-2.4); PHOSPHOROUS 2.5 mg/dL (2.5-4.9); POTASSIUM 3.7 mmol/L (3.5-5.1); UREA NITROGEN, BLOOD 22 mg/dL (7-18)
[2019-01-02] MEDS: LEVOTHYROXINE SODIUM 150 MCG TABLET NG SCH (06:06)
[2019-01-02] MEDS: HYDROCORTISONE SOD SUCCINATE 100 MG/2 ML VIAL IV SCH ×2 (06:09→15:25)
--- NOTE | 2019-01-02 07:30 | NUR ---
PT REC'D ORALLY INTUBATED 7.5ETT SECURE WITH TUBE FRAGA. PT TOLERATING CURRENT VENT SETTINGS AC18 550VT PEEP+5 50%FiO2 VENT ALARMS AUDIBLE, CHECKED AND RESET BVM AT BEDSIDE. LAVAGE/SXN'ING TO BE DONE NEEDED. WILL CONT TO MONITOR.
[2019-01-02 07:53] LABS: ABG BASE EXCESS 2.4 mmol/L; ABG HCO3 24.1 mmol/L; ABG PCO2 26.9 mmHg (35.0-45.0); ABG PO2 105.4 mmHg (75.0-100.0); ABG SITE RIGHT RADIAL; ABG TOTAL HEMOGLOBIN 8.9 G/dL (13.5-18.0); COHb 1.5 % (0.5-1.5); MetHb 0.4 % (0.0-1.5); O2Hb 96.9 % (94.0-97.0); VENT MODE VENT - A/C; VT, ABG 550 mL
--- NOTE | 2019-01-02 08:36 | NUR ---
INFORMATION SENT: FACESHEET,24 HOURS REPORT,PROGRESS NOTES 12/31,UR 01/01 [place]URANCE NAME: [facility] [place] [facility] FAX NUMBER: [phone] / [phone] FAX SENT
[2019-01-02] MEDS: PROTEIN SUPPLEMENT (PROSTAT) 30 ML LIQUID GT SCH (08:47)
[2019-01-02] MEDS: DESMOPRESSIN 4 MCG/1 ML VIAL SUBCUT SCH (08:48)
[2019-01-02] MEDS: PANTOPRAZOLE SODIUM 40 MG VIAL IV SCH (08:52)
[2019-01-02] MEDS: ACIDOPHILUS/BULGARICUS CHEW TAB NG SCH (08:53)
[2019-01-02] MEDS: NUTRISOURCE FIBER 4 GM PACKET GT SCH (08:53)
[2019-01-02] MEDS: LACOSAMIDE 100 MG/10 ML UDC XX SCH (08:53)
--- NOTE | 2019-01-02 10:55 | NUR ---
10:10am: TESFAYE informed this AM that patient's family was scheduled to meet with [facility] again this morning at 10am, as a follow-up to yesterday's meeting which was held at 4:30pm on 01/01/19. Family not at hospital yet. TESFAYE called patient's sister Berta [phone] at 10:10am in order to check on the family's estimated time of arrival at the hospital. TESFAYE was unable to connect with Berta. TESFAYE left Berta a voicemail message asking her to call this SW back to let her know when the family will be arriving at the hospital. TESFAYE will follow-up with family if SW does not receive a call back. TESFAYE informed Tereza from [facility] (present in CCU) about above. TESFAYE also informed Director Kylah Romero of above.
--- NOTE | 2019-01-02 11:40 | NUR ---
11:40am: TESFAYE has not received a call back from patient's sister Berta in response to the voicemail message that TESFAYE left Jaki earlier this morning (see previous SS note). TESFAYE once again attempted to call patient's sister Berta [phone] but was unable to connect with her. TESFAYE left Berta another voicemail message asking Berta to call this TESFAYE back. TESFAYE provided 2 phone numbers that Berta could reach TESFAYE at: phone number to CCU and TESFAYE's work cellular number.
[2019-01-02] MEDS ORDERED: MAGNESIUM SULFATE/D5W 100 ML IV SCH (13:30)
--- NOTE | 2019-01-02 13:45 | NUR ---
1:35pm: TESFAYE once again attempted to call patient's sister Berta [phone] and was able to connect with her. TESFAYE requested for Berta and her mother to come to the hospital by 2:30pm or 2:45pm in order to meet with hospital staff and [facility] and provide their decision regarding organ donation. SW also informed Berta that if the patient's mother does not arrive or provide the hospital with a decision by the given time, then the hospital and [facility] will assume that their answer is a "no" and that the hospital will have to move forward with extubating the patient. Berta expressed understanding and agreement, and stated that she would be notifying her mother right now about the fact that she would need to go to the hospital. TESFAYE also stated that the hospital will be contacting the patient's mother following this conversation with Berta. Berta expressed understanding. See immigration case manager MOHAMUD Dickson's note for phone call to patient's mother.
--- NOTE | 2019-01-02 14:00 | NUR ---
Spoke with Dr. Nazario to update and discuss end of life plan of care (see Bioethics notes). Doctor agrees and will be kept updated. Pending family decision regarding organ donation at this time. Coordinating with family and [facility] to arrange a second meeting to declare final decision. Pending arrival of patient's immediate family and [facility] representatives.
--- NOTE | 2019-01-02 14:30 | NUR ---
2:15pm: SW received a call from patient's sister Berta [phone], who stated that patient's mother was on her way to the hospital. Berta stated that the immediate family (mother, patient's sisters, and patient's daughter's mother) would like to be present during the extubation. SW expressed understanding and support. Berta also stated that she is trying to arrange for their process design engineer to come visit the patient prior to extubation, and SW expressed support. As previously discussed by this SW, Berta expressed understanding that the extubation will occur today if the family decides against organ donation. SW to coordinate with family, [facility], and hospital staff. Director Kylah Romero, MOHAMUD Stevens, and Tereza from [facility] were informed of above.
--- NOTE | 2019-01-02 14:33 | NUR ---
Bioethics Note: This engineering technical writer consulted with Dr Cristina, [facility], regarding this case at 1300. Hilda Patel RN, acting director of CCU was present at the time of phone call. Patient was pronounced brain on 01/01/19 at about 1530 (Please refer to notes of Dr Pierce). Dr Cristina said that according to state law patient needs to be extubated within 24 hours of this pronouncement or it becomes battery of a corpse.. Family have stayed away from the hospital today[facility]'s [facility] to come in and spoke with sister too. Yessi Parmar RN case manager called patient's mother and advised her in Georgian that we did want to meet with her and that she needed to come in by 1430 today. Yessi advised patient's mother that legally we needed to proceed with extubation within 24 hours of the pronouncement yesterday and that if we did not hear from her, the hospital would proceed with this according to State Law. Hilda is talking to [facility] and agreed to talk to Dr Jackson on this case to update him on status. Will follow up as needed. Family reportedly told Anjana at about 1420 that they were coming to the hospital. There is no DPOA so next of kin is patient's mother in this case. Mother appears overwhelmed and unable or unwilling to make a decision so far on this case.
--- NOTE | 2019-01-02 15:30 | NUR ---
TESFAYE met with patient's sister Josefina, who requested a letter stating patient's recent condition and current status. Josefina stated that she needed it for school in order for her absences to be excused. TESFAYE provided Josefina with a letter stating that patient has been at [facility] since December 15, and that he is now . Per family's request, an additional copy of the same letter was also provided to the family. Director Kyalh Romero aware of this request.
--- NOTE | 2019-01-02 16:20 | NUR ---
3:40pm: Patient's mother Da and daughter Josefina met with Sintia, family coordinator at [facility]. TESFAYE was not in the meeting. After the meeting, TESFAYE was informed by Sintia that patient's mother aD has declined organ donation and that Da verbalized agreement to Sintia for the hospital to proceed with terminal extubation. SS Director Kylah Romero, MOHAMUD Stevens, [facility]U MOHAMUD Elder, and Motor Boss Murali informed of above.
--- NOTE | 2019-01-02 16:30 | NUR ---
Informed Dr. Nazario of family decision to decline organ donation. Received orders for extubation. Notified RT.
[2019-01-02] MEDS ORDERED: DC PROPOFOL ONCE EXTUBATED XX PRN (16:45)
--- NOTE | 2019-01-02 16:45 | NUR ---
4:30pm: SW met with patient's sister Berta, who provided SW with information on the mortuary arrangements: [facility], [address] [place] [address], , Photo Editor: Edgar Brower. MOHAMUD Elder provided with this information. Berta stated that the head cleaning porter was also present in the room. Hospital staff provided family with time for pastoral services before terminal extubation would begin. MOHAMUD Stevens and MOHAMUD Elder aware.
--- NOTE | 2019-01-02 17:00 | NUR ---
[place] terminally extubated at 1700 with specific family members at bedside. Family given privacy to be with patient. Jerrod Tiwari RN
--- NOTE | 2019-01-02 17:28 | NUR ---
Patient pronounced at 1515 0n 01/01/19, and patient final rhythm after patient terminally extubated. Family at bedside. Jerrod Tiwari RN
--- NOTE | 2019-01-02 19:56 | NUR ---
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
--- NOTE | 2019-01-02 20:00 | NUR ---
POSTMORTEM CARE DONE FOLLOW POST MORTEM PROTOCOL .BODY WAS TAG .SISTER AIMEE WAS AWARE AT BEDSIDE AND PER AIMEE HER MOTHER IN THE WAITING ROOM AND ALSO AWARE THAT THE MORTUARY IS HERE TO [place] THE BODY .
--- NOTE | 2019-01-02 20:12 | NUR ---
MORTUARY LEFT WITH PATIENT VIA GURNEY,NO BELONGINGS.
== END 2019-01-02 20:12 | disposition expired | DRG 720 ==
LOC: CCU 16:59
PROVIDERS: ADMIT Internal Medicine; ATTEND Internal Medicine
PROC: 5A1955Z Respiratory Ventilation, Greater than 96 Consecutive Hours (ICD-10-PCS; principal; 2018-12-15)
PROC: 06HY33Z Insertion of Infusion Device into Lower Vein, Percutaneous Approach (ICD-10-PCS; 2018-12-15)
PROC: 5A12012 Performance of Cardiac Output, Single, Manual (ICD-10-PCS; 2018-12-15)
PROC: 02HV33Z Insertion of Infusion Device into Superior Vena Cava, Percutaneous Approach (ICD-10-PCS; 2018-12-15)
DX: A41.9 Sepsis, unspecified organism (principal); G93.6 Cerebral edema; I21.A1 Myocardial infarction type 2; E43 Unspecified severe protein-calorie malnutrition; I46.9 Cardiac arrest, cause unspecified; Z51.5 Encounter for palliative care; E23.2 Diabetes insipidus; G91.9 Hydrocephalus, unspecified; J15.211 Pneumonia due to Methicillin susceptible Staphylococcus aureus; E86.0 Dehydration; G93.1 Anoxic brain damage, not elsewhere classified; J96.01 Acute respiratory failure with hypoxia; N17.0 Acute kidney failure with tubular necrosis; R65.21 Severe sepsis with septic shock; Z86.03 Personal history of neoplasm of uncertain behavior; G40.909 Epilepsy, unspecified, not intractable, without status epilepticus; Z98.2 Presence of cerebrospinal fluid drainage device; J98.11 Atelectasis; I44.2 Atrioventricular block, complete; E78.5 Hyperlipidemia, unspecified; E03.8 Other specified hypothyroidism; E23.0 Hypopituitarism; E79.0 Hyperuricemia without signs of inflammatory arthritis and tophaceous disease; K72.00 Acute and subacute hepatic failure without coma; K76.0 Fatty (change of) liver, not elsewhere classified; I60.9 Nontraumatic subarachnoid hemorrhage, unspecified; Z87.01 Personal history of pneumonia (recurrent); D68.59 Other primary thrombophilia; Z68.34 Body mass index [BMI] 34.0-34.9, adult; E66.9 Obesity, unspecified; Z71.3 Dietary counseling and surveillance
CPT/HCPCS: 36415; 36556; 36569; 36600; 70030-TC; 70450; 70470; 71045; 71275; 83605; 83735; 84100; 84132; 84295; 85025; 85610; 85730; 86850; 86900; 86901; 87040; 87070; 87077; 87086; 93005; 93307; 94002; 94003; 95819; A4217; A4663; C1751; C9113; G0378; J0171; J0282; J0360; J0461; J1265; J1720; J1815; J2150; J2185; J2370; J2543; J2597; J3370; J3475; J3480; J3490; J7030; J7040; J7042; J7050; J7060; J7070; Q9967